=== PATIENT | female | born 1975 | race Caucasian/White ===

== ENCOUNTER → 2020-08-23 | Outpatient (CLI) | payer OTHER ==
[~2020-08-23] MED LIST: ALLER-TEC D 5-1 EACH PO; AUGMENTIN; CYCL10 PO; Calcium Carb 51 EACH PO; FEXPSEER; Flonase 0.05% N16 GM; GAVILAX17 GM PO; GLIP10 PO; HYDACE5; HYDACE5 PO; HYDCHL12.5 PO; IBUP400 PO; LEVSOD50 PO; LOSA50 PO; METO10 PO; MOMENI; Multiple Vitam1 EACH PO; OMEP20ER PO; OXYACE5T PO; OXYACE7.5T PO; PROM25 PO; RANI150 PO; RIZA; SILSUL1TC; SILSUL1TC TOP; VALA500 PO; VENL75ER PO; [UNRECOGNIZED DRUG - REMARK]
== END ==
LOC: LAB EV 18:22 → LAB SHORT 18:22
DX: L05.91 Pilonidal cyst without abscess (principal)
CPT/HCPCS: 87070; 87147; 87205

== ENCOUNTER 2020-09-16 00:29 | Day surgery (SDC) | payer OTHER | END 2020-09-16 22:44 | disposition home or self-care (01) | LOC: WOUND 00:29 | DX: L05.01 Pilonidal cyst with abscess (principal); L73.2 Hidradenitis suppurativa; I10 Essential (primary) hypertension; E11.9 Type 2 diabetes mellitus without complications; E89.0 Postprocedural hypothyroidism; F32.9 Major depressive disorder, single episode, unspecified; F41.9 Anxiety disorder, unspecified; J32.9 Chronic sinusitis, unspecified; E66.9 Obesity, unspecified; D64.9 Anemia, unspecified; J45.909 Unspecified asthma, uncomplicated; G47.30 Sleep apnea, unspecified; Z79.51 Long term (current) use of inhaled steroids; Z79.84 Long term (current) use of oral hypoglycemic drugs; Z79.899 Other long term (current) drug therapy; Z85.850 Personal history of malignant neoplasm of thyroid; Z87.891 Personal history of nicotine dependence | CPT/HCPCS: G0463 ==

== ENCOUNTER 2020-09-25 00:42 | Day surgery (SDC) | payer OTHER | END 2020-09-25 12:00 | disposition home or self-care (01) | LOC: WOUND 00:42 | DX: L05.01 Pilonidal cyst with abscess (principal); L73.2 Hidradenitis suppurativa; E11.9 Type 2 diabetes mellitus without complications; E03.9 Hypothyroidism, unspecified; I10 Essential (primary) hypertension; E66.9 Obesity, unspecified; Z79.899 Other long term (current) drug therapy; Z68.42 Body mass index [BMI] 45.0-49.9, adult; Z79.84 Long term (current) use of oral hypoglycemic drugs | CPT/HCPCS: G0463 ==

== ENCOUNTER 2020-10-03 08:42 | Day surgery (SDC) | payer OTHER | END 2020-10-03 23:37 | disposition home or self-care (01) | LOC: WOUND 08:42 | DX: L05.01 Pilonidal cyst with abscess (principal); L73.2 Hidradenitis suppurativa; E11.622 Type 2 diabetes mellitus with other skin ulcer; L98.411 Non-pressure chronic ulcer of buttock limited to breakdown of skin; E11.52 Type 2 diabetes mellitus with diabetic peripheral angiopathy with gangrene; I96 Gangrene, not elsewhere classified; F32.9 Major depressive disorder, single episode, unspecified; F41.9 Anxiety disorder, unspecified; D64.9 Anemia, unspecified; J45.909 Unspecified asthma, uncomplicated; J32.8 Other chronic sinusitis; G47.30 Sleep apnea, unspecified; E89.0 Postprocedural hypothyroidism; E66.9 Obesity, unspecified; Z68.41 Body mass index [BMI] 40.0-44.9, adult; Z88.8 Allergy status to other drugs, medicaments and biological substances; Z91.09 Other allergy status, other than to drugs and biological substances; Z79.51 Long term (current) use of inhaled steroids; Z79.84 Long term (current) use of oral hypoglycemic drugs; Z79.899 Other long term (current) drug therapy; Z87.891 Personal history of nicotine dependence | CPT/HCPCS: G0463 ==

== ENCOUNTER 2020-10-08 00:45 | Day surgery (SDC) | payer OTHER | END 2020-10-08 23:02 | disposition home or self-care (01) | LOC: WOUND 00:45 | DX: E11.622 Type 2 diabetes mellitus with other skin ulcer (principal); L98.412 Non-pressure chronic ulcer of buttock with fat layer exposed; L05.01 Pilonidal cyst with abscess; L73.2 Hidradenitis suppurativa; E66.9 Obesity, unspecified; E89.0 Postprocedural hypothyroidism; Z68.41 Body mass index [BMI] 40.0-44.9, adult; Z79.899 Other long term (current) drug therapy; Z79.84 Long term (current) use of oral hypoglycemic drugs | CPT/HCPCS: G0463 ==

== ENCOUNTER 2020-10-16 01:08 | Day surgery (SDC) | payer OTHER | END 2020-10-16 22:46 | disposition home or self-care (01) | LOC: WOUND 01:08 | DX: E11.622 Type 2 diabetes mellitus with other skin ulcer (principal); L98.412 Non-pressure chronic ulcer of buttock with fat layer exposed; E11.52 Type 2 diabetes mellitus with diabetic peripheral angiopathy with gangrene; I96 Gangrene, not elsewhere classified; L05.01 Pilonidal cyst with abscess; L73.2 Hidradenitis suppurativa; F32.9 Major depressive disorder, single episode, unspecified; F41.9 Anxiety disorder, unspecified; J32.9 Chronic sinusitis, unspecified; I10 Essential (primary) hypertension; D64.9 Anemia, unspecified; E89.0 Postprocedural hypothyroidism; J45.909 Unspecified asthma, uncomplicated; E66.9 Obesity, unspecified; Z68.41 Body mass index [BMI] 40.0-44.9, adult; Z85.850 Personal history of malignant neoplasm of thyroid; Z88.8 Allergy status to other drugs, medicaments and biological substances; Z91.09 Other allergy status, other than to drugs and biological substances; Z79.51 Long term (current) use of inhaled steroids; Z79.84 Long term (current) use of oral hypoglycemic drugs; Z79.899 Other long term (current) drug therapy | CPT/HCPCS: G0463 ==

== ENCOUNTER 2020-10-28 01:35 | Day surgery (SDC) | payer OTHER | END 2020-10-28 22:53 | disposition home or self-care (01) | LOC: WOUND 01:35 | DX: E11.622 Type 2 diabetes mellitus with other skin ulcer (principal); L98.412 Non-pressure chronic ulcer of buttock with fat layer exposed; L05.01 Pilonidal cyst with abscess; L73.2 Hidradenitis suppurativa; E66.9 Obesity, unspecified; I10 Essential (primary) hypertension; E03.9 Hypothyroidism, unspecified; F32.9 Major depressive disorder, single episode, unspecified; F41.9 Anxiety disorder, unspecified; Z68.41 Body mass index [BMI] 40.0-44.9, adult; Z79.899 Other long term (current) drug therapy; Z79.84 Long term (current) use of oral hypoglycemic drugs | CPT/HCPCS: G0463 ==

== ENCOUNTER 2020-11-11 00:22 | Day surgery (SDC) | payer OTHER | END 2020-11-11 22:54 | disposition home or self-care (01) | LOC: WOUND 00:22 | DX: L05.01 Pilonidal cyst with abscess (principal); E11.622 Type 2 diabetes mellitus with other skin ulcer; L98.412 Non-pressure chronic ulcer of buttock with fat layer exposed; E11.52 Type 2 diabetes mellitus with diabetic peripheral angiopathy with gangrene; I96 Gangrene, not elsewhere classified; L73.2 Hidradenitis suppurativa; E03.9 Hypothyroidism, unspecified; F32.9 Major depressive disorder, single episode, unspecified; F41.9 Anxiety disorder, unspecified; J32.9 Chronic sinusitis, unspecified; I10 Essential (primary) hypertension; D64.9 Anemia, unspecified; J45.909 Unspecified asthma, uncomplicated; G47.30 Sleep apnea, unspecified; E66.9 Obesity, unspecified; Z68.41 Body mass index [BMI] 40.0-44.9, adult; Z79.51 Long term (current) use of inhaled steroids; Z79.84 Long term (current) use of oral hypoglycemic drugs; Z79.899 Other long term (current) drug therapy | CPT/HCPCS: G0463 ==

== ENCOUNTER → 2021-03-07 | Outpatient (CLI) | payer OTHER | END | disposition home or self-care (01) | LOC: LAB SHORT 16:12 | DX: R35.0 Frequency of micturition (principal) | CPT/HCPCS: 87086; 87147 ==

== ENCOUNTER 2021-04-29 11:15 | Emergency (ER) | payer OTHER ==
[~2021-04-29] VITALS: Ht 170.2 cm; Wt 122.5 kg
[2021-04-29 12:03] LABS: BASOPHILS ABSOLUTE AUTO 0.09 K/mm3 (0.00-0.23); BASOPHILS PERCENT AUTO 1 % (0-2); EOSINOPHILS ABSOLUTE AUTO 0.37 K/mm3 (0.00-0.68); EOSINOPHILS PERCENT AUTO 3 % (0-6); Hematocrit 35.7 % (33.0-51.0); IMMATURE GRAN ABSOLUTE AUTO 0.21 K/mm3 (0.00-0.10); IMMATURE GRAN PERCENT AUTO 1 % (0-1); LYMPHOCYTES ABSOLUTE AUTO 2.35 K/mm3 (0.84-5.20); LYMPHOCYTES PERCENT AUTO 16 % (21-46); MONOCYTES ABSOLUTE AUTO 0.92 K/mm3 (0.16-1.47); MONOCYTES PERCENT AUTO 6 % (4-13); Mean Corpuscular HGB Conc 30.8 g/dL (31.5-36.5); Mean Corpuscular Volume 75 fL (80-100); Mean Platelet Volume 8.6 fL (9.1-12.4); NEUTROPHILS ABSOLUTE AUTO 10.89 K/mm3 (1.96-9.15); NEUTROPHILS PERCENT AUTO 74 % (41-73); Platelet Count 504 K/mm3 (150-400); RDW Coefficient Variation 17.2 % (11.7-14.2); RDW Standard Deviation 45.3 fL (35.1-46.3); Red Blood Cell Count 4.78 M/mm3 (3.80-5.20); White Blood Cell Count 14.83 K/mm3 (4.00-11.30)
[2021-04-29 12:17] LABS: Alanine Aminotransfer (ALT/SGP 25 U/L (12-78); Albumin/Globulin Ratio 0.5 (0.8-1.8); Alk Phos 99 U/L (50-136); Anion Gap 7 mmol/L (6-16); Aspartate Aminotrans (AST/SGOT 12 U/L (12-37); Bilirubin, Total 0.3 mg/dL (0.1-1.0); Blood Urea Nitrogen 17 mg/dL (8-24); Bun/Creatinine Ratio 18.5 (12.0-20.0); CO2, Blood 25 mmol/L (21-32); Calcium, Blood 8.7 mg/dL (8.5-10.1); Chloride, Blood 102 mmol/L (98-108); Creatinine, Blood 0.92 mg/dL (0.40-1.00); Globulin, Blood 5.6 g/dL (2.2-4.0); Glomerular Filtration Rate >60 (60-); Glucose, Blood 240 mg/dL (70-99); Potassium, Blood 3.8 mmol/L (3.5-5.5); Sodium, Blood 134 mmol/L (136-145); Total Protein, Blood 8.6 g/dL (6.4-8.2)
[2021-04-29 16:22] LABS: Source, Urine Clean Catch
[2021-04-29 16:40] LABS: Appearance, Urine Hazy (Clear); Bilirubin, Urine Neg (Neg); Blood, Urine 4+ (Neg); Color, Urine Yellow (P-Yellow); Glucose Qualitative, Urine Neg (Neg); Ketones, Urine Neg (Neg); Leukocyte Esterase, Urine 3+ (Neg); Nitrite, Urine Neg (Neg); Protein, Urine 1+ (Neg); Urobilinogen, Urine NORM (Normal)
[2021-04-29 17:19] LABS: Bacteria Many /hpf; White Blood Cells, Urine 50-100 /hpf (0-5)
[2021-04-29 17:20] LABS: Squamous Epithelial Cells Many /hpf (Few)
== END 2021-04-29 16:37 | disposition left against medical advice (07) ==
LOC: ER 11:15
PROVIDERS: Physician Assistant
DX: L05.91 Pilonidal cyst without abscess (principal); N39.0 Urinary tract infection, site not specified; Z53.21 Procedure and treatment not carried out due to patient leaving prior to being seen by health care provider; Z91.09 Other allergy status, other than to drugs and biological substances; Z88.8 Allergy status to other drugs, medicaments and biological substances; Z79.899 Other long term (current) drug therapy
CPT/HCPCS: 36415; 80053; 81001; 85025; 87086; 99282

== ENCOUNTER 2021-05-13 00:49 | Day surgery (SDC) | payer OTHER | END 2021-05-13 22:58 | disposition home or self-care (01) | LOC: WOUND 00:49 | DX: L98.412 Non-pressure chronic ulcer of buttock with fat layer exposed (principal); L05.01 Pilonidal cyst with abscess; L73.2 Hidradenitis suppurativa; E11.9 Type 2 diabetes mellitus without complications; E03.9 Hypothyroidism, unspecified; I10 Essential (primary) hypertension | CPT/HCPCS: A9270; G0463 ==

== ENCOUNTER 2021-05-20 05:02 | Day surgery (SDC) | payer OTHER | END 2021-05-20 23:14 | disposition home or self-care (01) | LOC: WOUND 05:02 | DX: L98.412 Non-pressure chronic ulcer of buttock with fat layer exposed (principal); L73.2 Hidradenitis suppurativa; E03.9 Hypothyroidism, unspecified; E66.9 Obesity, unspecified; I10 Essential (primary) hypertension | CPT/HCPCS: A9270; G0463 ==

== ENCOUNTER → 2021-06-11 | Outpatient (CLI) | payer OTHER | LOC: LAB 13:15 → LAB SHORT 13:15 | DX: L08.0 Pyoderma (principal) | CPT/HCPCS: 87070; 87205 ==

== ENCOUNTER 2021-07-16 12:01 | Inpatient (IN) | payer OTHER ==
[~2021-07-16] VITALS: Ht 170.2 cm; Wt 120.2 kg
[~2021-07-16 12:01] MED LIST changes: +Hair, Skin & N1 EACH PO; -Multiple Vitam1 EACH PO
[2021-07-16 12:56] LABS: BASOPHILS ABSOLUTE AUTO 0.06 K/mm3 (0.00-0.23); BASOPHILS PERCENT AUTO 0 % (0-2); EOSINOPHILS ABSOLUTE AUTO 0.23 K/mm3 (0.00-0.68); EOSINOPHILS PERCENT AUTO 2 % (0-6); Hematocrit 24.7 % (33.0-51.0); Hemoglobin 7.7 g/dL (11.5-16.0); IMMATURE GRAN ABSOLUTE AUTO 0.37 K/mm3 (0.00-0.10); IMMATURE GRAN PERCENT AUTO 2 % (0-1); LYMPHOCYTES ABSOLUTE AUTO 1.59 K/mm3 (0.84-5.20); LYMPHOCYTES PERCENT AUTO 10 % (21-46); MONOCYTES ABSOLUTE AUTO 1.32 K/mm3 (0.16-1.47); MONOCYTES PERCENT AUTO 9 % (4-13); Mean Corpuscular HGB 22.4 pg (26.0-34.0); Mean Corpuscular HGB Conc 31.2 g/dL (31.5-36.5); Mean Corpuscular Volume 72 fL (80-100); Mean Platelet Volume 8.6 fL (9.1-12.4); NEUTROPHILS ABSOLUTE AUTO 11.76 K/mm3 (1.96-9.15); NEUTROPHILS PERCENT AUTO 77 % (41-73); Platelet Count 516 K/mm3 (150-400); RDW Coefficient Variation 16.2 % (11.7-14.2); RDW Standard Deviation 41.5 fL (35.1-46.3); Red Blood Cell Count 3.44 M/mm3 (3.80-5.20); White Blood Cell Count 15.33 K/mm3 (4.00-11.30)
[2021-07-16 13:20] LABS: Albumin, Blood 2.1 g/dL (3.4-5.0); Albumin/Globulin Ratio 0.4 (0.8-1.8); Bilirubin, Total 0.5 mg/dL (0.1-1.0); Bun/Creatinine Ratio 12.7 (12.0-20.0); Calcium, Blood 8.8 mg/dL (8.5-10.1); Creatinine, Blood 1.42 mg/dL (0.40-1.00); Globulin, Blood 5.4 g/dL (2.2-4.0); Potassium, Blood 4.2 mmol/L (3.5-5.5); Total Protein, Blood 7.5 g/dL (6.4-8.2)
[2021-07-16] MEDS ORDERED: GLYBURIDE5 M2 PO (15:12)
[2021-07-16] MEDS ORDERED: SITA100T2 PO (15:12)
[2021-07-16] MEDS ORDERED: MONT10T PO (15:12)
[2021-07-16] MEDS ORDERED: Synthroid/Levo0.2 MG PO (15:13)
[2021-07-16] MEDS ORDERED: BUPR150ER PO (15:13)
[2021-07-16] MEDS ORDERED: LOSARTAN-HCTZ1 EAC6 PO (15:14)
[2021-07-16] MEDS ORDERED: EFFEXOR XR150 MG PO (15:14)
[2021-07-16] MEDS ORDERED: CONSTULOSE10 GM/155 PO (15:14)
[2021-07-16] MEDS ORDERED: HUMIRA(CF)40 MG/0.4 SC (15:16)
--- NOTE | 2021-07-16 19:14 | NUR ---
PT ADMITTED TO ROOM 215 ABOUT 1745. PT IS A/O X4. PAIN 10/10; MEDICATED WITH DILAUDED. PHOTOS TAKEN OF SKIN BREAKDOWN AND PLACED IN CHART. CBG WAS 59; PT GIVEN APPLE JUICE. LINENS CHANGED. PT ORIENTED TO ROOM AND CALL LIGHT.
[2021-07-17 04:47] LABS: BASOPHILS ABSOLUTE AUTO 0.04 K/mm3 (0.00-0.23); BASOPHILS PERCENT AUTO 0 % (0-2); EOSINOPHILS ABSOLUTE AUTO 0.43 K/mm3 (0.00-0.68); EOSINOPHILS PERCENT AUTO 4 % (0-6); Hematocrit 23.7 % (33.0-51.0); IMMATURE GRAN ABSOLUTE AUTO 0.32 K/mm3 (0.00-0.10); IMMATURE GRAN PERCENT AUTO 3 % (0-1); LYMPHOCYTES ABSOLUTE AUTO 2.06 K/mm3 (0.84-5.20); LYMPHOCYTES PERCENT AUTO 17 % (21-46); MONOCYTES ABSOLUTE AUTO 1.36 K/mm3 (0.16-1.47); MONOCYTES PERCENT AUTO 11 % (4-13); Mean Corpuscular HGB 22.4 pg (26.0-34.0); Mean Corpuscular HGB Conc 29.5 g/dL (31.5-36.5); Mean Corpuscular Volume 76 fL (80-100); Mean Platelet Volume 8.4 fL (9.1-12.4); NEUTROPHILS ABSOLUTE AUTO 8.14 K/mm3 (1.96-9.15); NEUTROPHILS PERCENT AUTO 66 % (41-73); Platelet Count 500 K/mm3 (150-400); RDW Coefficient Variation 16.2 % (11.7-14.2); RDW Standard Deviation 45.1 fL (35.1-46.3); Red Blood Cell Count 3.13 M/mm3 (3.80-5.20); White Blood Cell Count 12.35 K/mm3 (4.00-11.30)
[2021-07-17 05:12] LABS: Albumin, Blood 1.9 g/dL (3.4-5.0); Albumin/Globulin Ratio 0.4 (0.8-1.8); Bilirubin, Total 0.3 mg/dL (0.1-1.0); Bun/Creatinine Ratio 10.9 (12.0-20.0); Calcium, Blood 8.2 mg/dL (8.5-10.1); Creatinine, Blood 1.28 mg/dL (0.40-1.00); Magnesium, Blood 1.5 mg/dL (1.6-2.4); Potassium, Blood 3.5 mmol/L (3.5-5.5); Total Protein, Blood 6.9 g/dL (6.4-8.2)
--- NOTE | 2021-07-17 07:51 | NUR ---
SHIFT SUMMARY: DELROY IS A&OX4. VSS, NO ACUTE EVENTS OVERNIGHT. SHE DOES STATE THAT THE BLOOD PRESSURES ARE LOWER THAN HER NORM, BUT DENIES ANY DIZZINESS OR LIGHTHEADEDNESS. SHE IS TOLERATING PO INTAKE WELL, IV TO LEFT HAND PATENT. SHE REPORTS ADEQUATE PAIN CONTROL WITH THE 5 MG OXYCODONE AND 1 MG OF DILAUDID. SHE IS A ONE PERSON STANDBY ASSIST TO THE BATHROOM. SHE REPORTS AMBULATING AND URINATING TO BE EXTREMELY PAINFUL. SHE DID STATE THAT THE OIL EMULSION DRESSINGS WERE HELPFUL AND DID NOT CAUSE AN INCREASE TO HER SYMPTOMS. SHE IS LYING IN BED WITH THE CALL LIGHT IN REACH. REPORT GIVEN TO DAY SHIFT RN.
--- NOTE | 2021-07-17 12:44 | NUR ---
DR RAMÍREZ IN TO SEE PT, TOOK BIOPSIES.
[2021-07-17 13:03] LABS: BASOPHILS ABSOLUTE AUTO 0.09 K/mm3 (0.00-0.23); BASOPHILS PERCENT AUTO 1 % (0-2); EOSINOPHILS PERCENT AUTO 3 % (0-6); Hematocrit 27.2 % (33.0-51.0); IMMATURE GRAN ABSOLUTE AUTO 0.45 K/mm3 (0.00-0.10); IMMATURE GRAN PERCENT AUTO 3 % (0-1); LYMPHOCYTES ABSOLUTE AUTO 2.09 K/mm3 (0.84-5.20); LYMPHOCYTES PERCENT AUTO 14 % (21-46); MONOCYTES ABSOLUTE AUTO 1.49 K/mm3 (0.16-1.47); MONOCYTES PERCENT AUTO 10 % (4-13); Mean Corpuscular HGB 22.5 pg (26.0-34.0); Mean Corpuscular HGB Conc 29.4 g/dL (31.5-36.5); Mean Corpuscular Volume 76 fL (80-100); Mean Platelet Volume 8.2 fL (9.1-12.4); NEUTROPHILS ABSOLUTE AUTO 10.33 K/mm3 (1.96-9.15); NEUTROPHILS PERCENT AUTO 69 % (41-73); Platelet Count 595 K/mm3 (150-400); RDW Coefficient Variation 16.2 % (11.7-14.2); Red Blood Cell Count 3.56 M/mm3 (3.80-5.20); White Blood Cell Count 14.95 K/mm3 (4.00-11.30)
[2021-07-17 15:30] LABS: Vancomycin, Trough 20.6 ug/mL (5.0-10.0)
--- NOTE | 2021-07-17 16:25 | NUR ---
SHIFT SUMMARY PT HAS BEEN A/O X4. SBA UP TO BATHROOM. PT HAS BEEN VERY PAINFUL WITH MOVEMENT R/T SKIN DISCOMFORT. SHE STATES IT FEELS LIKE HER SKIN IS RIPPING WHEN SHE MOVES. PT HAS BEEN MEDICATED PRN PER ORDERS. DR RAMÍREZ WAS IN TO SEE PT TODAY AND DID BIOPSIES FOR CULTURES. BLOOD CULTURES CAME BACK POSITIVE TODAY - NOTIFIED PROVIDER - PT ON VANCO WHICH COVERS THIS PER PHYSICIAN. PT HAS BEEN TOLERATING PO INTAKE AND VOIDING.
--- NOTE | 2021-07-18 04:00 | NUR ---
SHIFT SUMMARY NO ACUTE CHANGES THIS SHIFT. PT REPORTS SHE IS ABLE TO TOLERATE MORE MOBILITY WITH HER LEGS THIS SHIFT. 1 PAIN PILL AND X1 DOSE IV BREAKTHROUGH PAIN MEDS PER ORDERS. CREAM APPLIED TO RASH AREAS PER ORDERS. IVF INFUSING. 1 ASSIST TO BRP. PT USES CALL LIGHT APPROPRIATELY.
[2021-07-18 05:04] LABS: BASOPHILS ABSOLUTE AUTO 0.02 K/mm3 (0.00-0.23); BASOPHILS PERCENT AUTO 0 % (0-2); EOSINOPHILS ABSOLUTE AUTO 0.03 K/mm3 (0.00-0.68); EOSINOPHILS PERCENT AUTO 0 % (0-6); Hematocrit 23.1 % (33.0-51.0); Hemoglobin 6.7 g/dL (11.5-16.0); IMMATURE GRAN ABSOLUTE AUTO 0.24 K/mm3 (0.00-0.10); IMMATURE GRAN PERCENT AUTO 3 % (0-1); LYMPHOCYTES PERCENT AUTO 14 % (21-46); MONOCYTES ABSOLUTE AUTO 0.86 K/mm3 (0.16-1.47); MONOCYTES PERCENT AUTO 9 % (4-13); Mean Corpuscular Volume 76 fL (80-100); Mean Platelet Volume 8.4 fL (9.1-12.4); NEUTROPHILS ABSOLUTE AUTO 6.85 K/mm3 (1.96-9.15); NEUTROPHILS PERCENT AUTO 74 % (41-73); Platelet Count 443 K/mm3 (150-400); RDW Standard Deviation 44.1 fL (35.1-46.3); Red Blood Cell Count 3.05 M/mm3 (3.80-5.20)
[2021-07-18 05:42] LABS: Albumin, Blood 1.7 g/dL (3.4-5.0); Albumin/Globulin Ratio 0.4 (0.8-1.8); Bilirubin, Total 0.2 mg/dL (0.1-1.0); Bun/Creatinine Ratio 13.6 (12.0-20.0); C-REACTIVE PROTEIN, EXT RANGE 16.8 mg/dL (0.000-0.300); Calcium, Blood 7.6 mg/dL (8.5-10.1); Creatinine, Blood 1.03 mg/dL (0.40-1.00); Globulin, Blood 4.7 g/dL (2.2-4.0); Percent Saturation 16.4 % (15.0-50.0); Potassium, Blood 3.9 mmol/L (3.5-5.5); Total Protein, Blood 6.4 g/dL (6.4-8.2)
--- NOTE | 2021-07-18 16:39 | NUR ---
SHIFT SUMMARY PT A&OX4, VSS/RA, ANXIOUS AT TIMES. CHRONIC RASH, OIL EMULSION DRESSINGS CHANGED, TRIAMCINOLONE CREAM APPLIED TO THIGHS ONLY. 1 UNIT PRBCS INFUSED TODAY. IVF @ 150 AND ABX/ANTIFUNGAL SCHEDULED. PAIN MANAGED WITH 5 MG OXY AND 1 MG DILAUDID PRN. MARY PO ADA DIET. CBGS CNI. VOIDING. AMBULATING SBA TO BRP, UP IN ROOM. WILL REPORT TO ONCOMING NOC DARNELL.
--- NOTE | 2021-07-19 04:50 | NUR ---
SHIFT SUMMARY NO ACUTE CHANGES THIS SHIFT. PT LESS PAINFUL THAN PREVIOUS SHIFT. 1 MG IV DILAUDID + 1 ROXICODONE FOR PAIN MANAGEMENT. OIL EMULSION DRESSINGS IN PLACE TO RASH AREAS. IVF INFUSING PER ORDERS. 1 SBA TO BRP. PT APPEARS TO BE LESS ANXIOUS THIS SHIFT AND MORE EMOTIONALLY STABLE R/T TREATMENT PLAN AND DIAGNOSIS. USES CALL LIGHT APPROPRIATELY.
[2021-07-19 08:12] LABS: COMPLEMENT C3, SERUM 165 mg/dL (82-167); COMPLEMENT C4, SERUM 31 mg/dL (12-38)
[2021-07-19 09:37] LABS: Vancomycin, Trough 12.2 ug/mL (5.0-10.0)
[2021-07-19 13:35] LABS: BASOPHILS ABSOLUTE AUTO 0.04 K/mm3 (0.00-0.23); BASOPHILS PERCENT AUTO 1 % (0-2); EOSINOPHILS PERCENT AUTO 4 % (0-6); Hematocrit 23.2 % (33.0-51.0); Hemoglobin 6.9 g/dL (11.5-16.0); IMMATURE GRAN ABSOLUTE AUTO 0.31 K/mm3 (0.00-0.10); IMMATURE GRAN PERCENT AUTO 4 % (0-1); LYMPHOCYTES ABSOLUTE AUTO 1.62 K/mm3 (0.84-5.20); LYMPHOCYTES PERCENT AUTO 19 % (21-46); MONOCYTES ABSOLUTE AUTO 0.83 K/mm3 (0.16-1.47); MONOCYTES PERCENT AUTO 10 % (4-13); Mean Corpuscular HGB 22.8 pg (26.0-34.0); Mean Corpuscular HGB Conc 29.7 g/dL (31.5-36.5); Mean Corpuscular Volume 77 fL (80-100); Mean Platelet Volume 8.2 fL (9.1-12.4); NEUTROPHILS ABSOLUTE AUTO 5.31 K/mm3 (1.96-9.15); NEUTROPHILS PERCENT AUTO 63 % (41-73); Platelet Count 403 K/mm3 (150-400); RDW Coefficient Variation 16.6 % (11.7-14.2); RDW Standard Deviation 45.9 fL (35.1-46.3); Red Blood Cell Count 3.03 M/mm3 (3.80-5.20); White Blood Cell Count 8.41 K/mm3 (4.00-11.30)
[2021-07-19 17:08] LABS: ANA DIRECT Negative (Negative); ANTI-DNA (DS) AB QN <1 IU/mL (0-9); RNP ANTIBODIES <0.2 AI (0.0-0.9); SJOGREN'S ANTI-SS-A <0.2 AI (0.0-0.9); SJOGREN'S ANTI-SS-B <0.2 AI (0.0-0.9); SMITH ANTIBODIES <0.2 AI (0.0-0.9)
--- NOTE | 2021-07-19 17:17 | NUR ---
SUMMARY PT PAINFUL W/MOVEMENT. MEDICATED PER ORDERS T/O SHIFT FOR PAIN. CHANGED CHUX PRN FOR BLEEDING TO BUTTOCKS. CHANGED VASELINE GAUZE DRESSINGS TO GROIN AREA/PANNUS AND UNDER BREASTS. PT REC'G 1 UNIT PRBCS AT THIS TIME. VSS. CALL LIGHT IN REACH.
[2021-07-19 19:08] LABS: ANTI-DSDNA ANTIBODIES <1 IU/mL (0-9); RNP ANTIBODIES <0.2 AI (0.0-0.9); SJOGREN'S ANTI-SS-A <0.2 AI (0.0-0.9); SJOGREN'S ANTI-SS-B <0.2 AI (0.0-0.9); SMITH ANTIBODIES <0.2 AI (0.0-0.9)
[2021-07-20 04:51] LABS: BASOPHILS ABSOLUTE AUTO 0.04 K/mm3 (0.00-0.23); BASOPHILS PERCENT AUTO 0 % (0-2); EOSINOPHILS ABSOLUTE AUTO 0.35 K/mm3 (0.00-0.68); EOSINOPHILS PERCENT AUTO 4 % (0-6); Hematocrit 24.7 % (33.0-51.0); Hemoglobin 7.7 g/dL (11.5-16.0); IMMATURE GRAN ABSOLUTE AUTO 0.34 K/mm3 (0.00-0.10); IMMATURE GRAN PERCENT AUTO 4 % (0-1); LYMPHOCYTES ABSOLUTE AUTO 1.84 K/mm3 (0.84-5.20); LYMPHOCYTES PERCENT AUTO 19 % (21-46); MONOCYTES ABSOLUTE AUTO 0.95 K/mm3 (0.16-1.47); MONOCYTES PERCENT AUTO 10 % (4-13); Mean Corpuscular HGB 23.7 pg (26.0-34.0); Mean Corpuscular HGB Conc 31.2 g/dL (31.5-36.5); Mean Corpuscular Volume 76 fL (80-100); Mean Platelet Volume 8.2 fL (9.1-12.4); NEUTROPHILS ABSOLUTE AUTO 6.01 K/mm3 (1.96-9.15); NEUTROPHILS PERCENT AUTO 63 % (41-73); NRBC ABSOLUTE 0.02 K/mm3 (0.00-0.02); NRBC Auto 0.2 /100 WBC (0.0-0.2); Platelet Count 418 K/mm3 (150-400); RDW Coefficient Variation 16.8 % (11.7-14.2); Red Blood Cell Count 3.25 M/mm3 (3.80-5.20); White Blood Cell Count 9.53 K/mm3 (4.00-11.30)
[2021-07-20 05:11] LABS: Alanine Aminotransfer (ALT/SGP 30 U/L (12-78); Albumin, Blood 1.7 g/dL (3.4-5.0); Albumin/Globulin Ratio 0.4 (0.8-1.8); Alk Phos 79 U/L (50-136); Anion Gap 7 mmol/L (6-16); Aspartate Aminotrans (AST/SGOT 18 U/L (12-37); Bilirubin, Total 0.3 mg/dL (0.1-1.0); Blood Urea Nitrogen 12 mg/dL (8-24); CO2, Blood 24 mmol/L (21-32); Calcium, Blood 7.7 mg/dL (8.5-10.1); Chloride, Blood 110 mmol/L (98-108); Globulin, Blood 4.2 g/dL (2.2-4.0); Glomerular Filtration Rate >60 (60-); Glucose, Blood 80 mg/dL (70-99); Magnesium, Blood 1.7 mg/dL (1.6-2.4); Potassium, Blood 3.7 mmol/L (3.5-5.5); Sodium, Blood 141 mmol/L (136-145); Total Protein, Blood 5.9 g/dL (6.4-8.2)
--- NOTE | 2021-07-20 07:46 | NUR ---
SUMMARY PT WITH NO CHANGES TONIGHT.WAITING SCOPE TOMORROW,AND WAITING BX RESULTS.
--- NOTE | 2021-07-20 18:44 | NUR ---
SUMMARY NO ACUTE CHANGES T/O SHIFT. PT SLEPT OFF AND ON T/O AFTERNOON. PAINFUL WHEN GETTING OOB, AMBULATING. CLEAR LIQUIDS THIS SHIFT PER ORDERS IN ORDER TO PREP FOR SCOPE PLANNED FOR TOMORROW. BOWEL PREP STARTING THIS EVENING. CALL LIGHT IN REACH.
[2021-07-20 20:24] LABS: Vancomycin, Trough 17.7 ug/mL (5.0-10.0)
[2021-07-21 04:15] LABS: BASOPHILS ABSOLUTE AUTO 0.03 K/mm3 (0.00-0.23); BASOPHILS PERCENT AUTO 0 % (0-2); EOSINOPHILS ABSOLUTE AUTO 0.25 K/mm3 (0.00-0.68); EOSINOPHILS PERCENT AUTO 3 % (0-6); Hematocrit 27.3 % (33.0-51.0); Hemoglobin 8.3 g/dL (11.5-16.0); IMMATURE GRAN ABSOLUTE AUTO 0.33 K/mm3 (0.00-0.10); IMMATURE GRAN PERCENT AUTO 3 % (0-1); LYMPHOCYTES PERCENT AUTO 17 % (21-46); MONOCYTES ABSOLUTE AUTO 0.97 K/mm3 (0.16-1.47); MONOCYTES PERCENT AUTO 10 % (4-13); Mean Corpuscular HGB 23.3 pg (26.0-34.0); Mean Corpuscular HGB Conc 30.4 g/dL (31.5-36.5); Mean Corpuscular Volume 77 fL (80-100); Mean Platelet Volume 8.1 fL (9.1-12.4); NEUTROPHILS ABSOLUTE AUTO 6.53 K/mm3 (1.96-9.15); NEUTROPHILS PERCENT AUTO 67 % (41-73); Platelet Count 436 K/mm3 (150-400); RDW Coefficient Variation 17.2 % (11.7-14.2); RDW Standard Deviation 47.7 fL (35.1-46.3); Red Blood Cell Count 3.56 M/mm3 (3.80-5.20); White Blood Cell Count 9.81 K/mm3 (4.00-11.30)
[2021-07-21 04:49] LABS: Anion Gap 9 mmol/L (6-16); Blood Urea Nitrogen 7 mg/dL (8-24); Bun/Creatinine Ratio 7.8 (12.0-20.0); CO2, Blood 24 mmol/L (21-32); Calcium, Blood 8.1 mg/dL (8.5-10.1); Chloride, Blood 110 mmol/L (98-108); Glomerular Filtration Rate >60 (60-); Glucose, Blood 72 mg/dL (70-99); Potassium, Blood 3.3 mmol/L (3.5-5.5); Sodium, Blood 143 mmol/L (136-145)
--- NOTE | 2021-07-21 07:24 | NUR ---
SUMMARY PT FINALLY WAS ABLE TO GET 4000 ML GOLYTLY DOWN BY 0630. PT TEARFUL REPORTING SHE HATES THE TASTE,FEELING FULL,HOWEVER,STOOLS ARE FINALLY BECOMING LIQUID.DR [place] HERE TO SEE PT AND IS AWARE.
[2021-07-21 10:25] LABS: SARS-Cov-2 (COVID-19) PCR, MMC NEGATIVE (NEGATIVE)
--- NOTE | 2021-07-21 10:39 | NUR ---
07/21/21 1039 Prisca Garcia History, Chart, Medications and Allergies reviewed before start of procedure. Patient confirms NPO status and agrees with scheduled surgery.
--- NOTE | 2021-07-21 10:49 | NUR ---
DR RAMÍREZ IN TO SEE PT THIS MORNING AROUND 0730. PT HAS BEEN HAVING LOOSE/WATERY STOOL SINCE FINISHING BOWEL PREP LAST NIGHT. HAS BEEN NPO SINCE AROUND 0600. PT TO COLONOSCOPY AROUND 1000.
--- NOTE | 2021-07-21 12:01 | NUR ---
PT BACK FROM SCOPE. AWAKE, ALERT, ORIENTED. TRANSFERRED TO BED WITH SBA. DRESSING PLACED ON BOTTOM.
--- NOTE | 2021-07-21 18:06 | NUR ---
SHIFT SUMMARY PT HAS BEEN A/O X4 TODAY. TOLERATING PO INTAKE AND VOIDING. PAIN MANAGED WITH PO AND IV PAIN MEDICATION PRN. OIL EMULSION DRESSINGS APPLIED TO OPEN WOUNDS TO PREVENT STICKING TO BEDDING. PT HAD SCOPE TODAY; SEE OP NOTE. PT AMBULATING WITH 1X ASSIST TO BATHROOM. NO ACUTE CHANGES TODAY.
--- NOTE | 2021-07-22 03:59 | NUR ---
SHIFT SUMMARY NO ACUTE CHANGES THIS SHIFT. OIL EMULSION DRESSINGS REMAIN IN PLACE TO RASHES. 1 ROXICODONE + 1MG IV DILAUDID FOR PAIN MANAGMENT. IVF + ABX PER ORDERS. 1 SBA TO BRP. PT USES CALL LIGHT APPROPRIATELY.
[2021-07-22 08:07] LABS: BASOPHILS ABSOLUTE AUTO 0.03 K/mm3 (0.00-0.23); BASOPHILS PERCENT AUTO 0 % (0-2); EOSINOPHILS ABSOLUTE AUTO 0.28 K/mm3 (0.00-0.68); EOSINOPHILS PERCENT AUTO 3 % (0-6); Hematocrit 25.4 % (33.0-51.0); Hemoglobin 7.7 g/dL (11.5-16.0); IMMATURE GRAN ABSOLUTE AUTO 0.14 K/mm3 (0.00-0.10); IMMATURE GRAN PERCENT AUTO 2 % (0-1); LYMPHOCYTES ABSOLUTE AUTO 1.47 K/mm3 (0.84-5.20); LYMPHOCYTES PERCENT AUTO 17 % (21-46); MONOCYTES ABSOLUTE AUTO 0.87 K/mm3 (0.16-1.47); MONOCYTES PERCENT AUTO 10 % (4-13); Mean Corpuscular HGB 23.5 pg (26.0-34.0); Mean Corpuscular HGB Conc 30.3 g/dL (31.5-36.5); Mean Corpuscular Volume 78 fL (80-100); Mean Platelet Volume 8.2 fL (9.1-12.4); NEUTROPHILS ABSOLUTE AUTO 5.89 K/mm3 (1.96-9.15); NEUTROPHILS PERCENT AUTO 68 % (41-73); Platelet Count 361 K/mm3 (150-400); RDW Coefficient Variation 17.6 % (11.7-14.2); RDW Standard Deviation 49.3 fL (35.1-46.3); Red Blood Cell Count 3.27 M/mm3 (3.80-5.20); White Blood Cell Count 8.68 K/mm3 (4.00-11.30)
[2021-07-22 08:23] LABS: Alanine Aminotransfer (ALT/SGP 28 U/L (12-78); Albumin, Blood 1.6 g/dL (3.4-5.0); Albumin/Globulin Ratio 0.4 (0.8-1.8); Alk Phos 73 U/L (50-136); Anion Gap 7 mmol/L (6-16); Aspartate Aminotrans (AST/SGOT 16 U/L (12-37); Bilirubin, Total 0.2 mg/dL (0.1-1.0); Blood Urea Nitrogen 5 mg/dL (8-24); Bun/Creatinine Ratio 5.4 (12.0-20.0); CO2, Blood 25 mmol/L (21-32); Calcium, Blood 7.6 mg/dL (8.5-10.1); Chloride, Blood 110 mmol/L (98-108); Creatinine, Blood 0.93 mg/dL (0.40-1.00); Globulin, Blood 4.4 g/dL (2.2-4.0); Glomerular Filtration Rate >60 (60-); Glucose, Blood 97 mg/dL (70-99); Potassium, Blood 3.4 mmol/L (3.5-5.5); Sodium, Blood 142 mmol/L (136-145); Vancomycin, Trough 15.9 ug/mL (5.0-10.0)
--- NOTE | 2021-07-22 17:12 | NUR ---
SHIFT SUMMARY PT HAS BEEN A/O X4 TODAY. SBA TO BATHROOM FOR CORDS/LINES. PT CONTINUES TO HAVE SIGNIFICANT PAIN ON COCCYX, JAXON AREA, ABD AND UNDER BREASTS WHERE SKIN IS IRRITATED. MEDICATING WITH OXY, TYLENOL, AND DILAUDED. USING OIL EMOLSION DRESSINGS TO PREVENT STICKING TO BEDDING. PT WAS SEEN TODAY BY DR RAMÍREZ AND DR DEL VALLE. EYE DROPS STARTED TODAY FOR REDNESS AND ITCHING IN EYES. PT RESTING IN BED AT THIS TIME.
[2021-07-23 04:31] LABS: BASOPHILS ABSOLUTE AUTO 0.03 K/mm3 (0.00-0.23); BASOPHILS PERCENT AUTO 0 % (0-2); EOSINOPHILS ABSOLUTE AUTO 0.35 K/mm3 (0.00-0.68); EOSINOPHILS PERCENT AUTO 4 % (0-6); Hematocrit 28.7 % (33.0-51.0); Hemoglobin 8.7 g/dL (11.5-16.0); IMMATURE GRAN ABSOLUTE AUTO 0.13 K/mm3 (0.00-0.10); IMMATURE GRAN PERCENT AUTO 2 % (0-1); LYMPHOCYTES ABSOLUTE AUTO 1.29 K/mm3 (0.84-5.20); LYMPHOCYTES PERCENT AUTO 16 % (21-46); MONOCYTES ABSOLUTE AUTO 0.83 K/mm3 (0.16-1.47); MONOCYTES PERCENT AUTO 10 % (4-13); Mean Corpuscular HGB 23.6 pg (26.0-34.0); Mean Corpuscular HGB Conc 30.3 g/dL (31.5-36.5); Mean Corpuscular Volume 78 fL (80-100); Mean Platelet Volume 8.5 fL (9.1-12.4); NEUTROPHILS ABSOLUTE AUTO 5.51 K/mm3 (1.96-9.15); NEUTROPHILS PERCENT AUTO 68 % (41-73); Platelet Count 424 K/mm3 (150-400); RDW Coefficient Variation 17.4 % (11.7-14.2); RDW Standard Deviation 48.7 fL (35.1-46.3); Red Blood Cell Count 3.69 M/mm3 (3.80-5.20); White Blood Cell Count 8.14 K/mm3 (4.00-11.30)
[2021-07-23 04:52] LABS: Alanine Aminotransfer (ALT/SGP 24 U/L (12-78); Albumin, Blood 1.8 g/dL (3.4-5.0); Albumin/Globulin Ratio 0.4 (0.8-1.8); Alk Phos 78 U/L (50-136); Anion Gap 6 mmol/L (6-16); Aspartate Aminotrans (AST/SGOT 12 U/L (12-37); Bilirubin, Total 0.2 mg/dL (0.1-1.0); Blood Urea Nitrogen 4 mg/dL (8-24); Bun/Creatinine Ratio 4.3 (12.0-20.0); CO2, Blood 27 mmol/L (21-32); Calcium, Blood 8.2 mg/dL (8.5-10.1); Chloride, Blood 107 mmol/L (98-108); Creatinine, Blood 0.94 mg/dL (0.40-1.00); Globulin, Blood 4.7 g/dL (2.2-4.0); Glomerular Filtration Rate >60 (60-); Glucose, Blood 125 mg/dL (70-99); Potassium, Blood 3.2 mmol/L (3.5-5.5); Sodium, Blood 140 mmol/L (136-145); Total Protein, Blood 6.5 g/dL (6.4-8.2)
--- NOTE | 2021-07-23 06:12 | NUR ---
SHIFT SUMMARY: DELROY IS A&OX4. VSS, NO ACUTE EVENTS OVERNIGHT. SHE REPORTS ADEQUATE PAIN CONTROL WITH THE APAP, DILAUDID, AND OXYCODONE. IV TO R ARM PATENT, MARY PO INTAKE WITH OCCASIONAL NAUSEA, REPORTS RELIEF WITH ZOFRAN. OIL EMULSION DRESSINGS TO WOUNDS. SHE STATES THAT SHE FEELS THE RASH ON THE RIGHT SIDE OF HER BODY IS IMPROVING, BUT DOES NOT FEEL THAT THE LEFT SIDE IS IMPROVING AT ALL. SHE IS A ONE PERSON ASSIST TO THE BATHROOM. SHE IS LYING IN BED WITH THE CALL LIGHT IN REACH. WILL REPORT TO DAY SHIFT RN.
--- NOTE | 2021-07-23 18:06 | NUR ---
SHIFT SUMMARY PATIENT ORIENTED WHEN AWAKE. SOMEWHAT ANXIOUS IN MORNING, GAVE ATIVAN AND RESTED AND NAPPED THROUGH AFTERNOON. SEEN BY DERM DR RAMÍREZ WHO STATED WOUNDS TO BUTTOCKS LOOKED MUCH IMPROVED SINCE WEDNESDAY. OIL EMULSION DRESSING CHANGED PRN THROUGHOUT SHIFT. MEDICATED FOR PAIN PER EMAR. ROUTINE FLUIDS AND ABX RUNNING. SBA UP TO BATHROOM. POOR APPETITE THIS SHIFT. TOLERATING WATER. VOIDING URINE. NO BM THIS SHIFT.
[2021-07-24 05:47] LABS: BASOPHILS ABSOLUTE AUTO 0.04 K/mm3 (0.00-0.23); BASOPHILS PERCENT AUTO 1 % (0-2); EOSINOPHILS ABSOLUTE AUTO 0.31 K/mm3 (0.00-0.68); EOSINOPHILS PERCENT AUTO 4 % (0-6); Hematocrit 26.6 % (33.0-51.0); IMMATURE GRAN PERCENT AUTO 1 % (0-1); LYMPHOCYTES PERCENT AUTO 10 % (21-46); MONOCYTES ABSOLUTE AUTO 0.76 K/mm3 (0.16-1.47); MONOCYTES PERCENT AUTO 9 % (4-13); Mean Corpuscular HGB 23.1 pg (26.0-34.0); Mean Corpuscular HGB Conc 30.1 g/dL (31.5-36.5); Mean Corpuscular Volume 77 fL (80-100); Mean Platelet Volume 8.4 fL (9.1-12.4); NEUTROPHILS ABSOLUTE AUTO 6.05 K/mm3 (1.96-9.15); NEUTROPHILS PERCENT AUTO 75 % (41-73); Platelet Count 387 K/mm3 (150-400); RDW Coefficient Variation 17.4 % (11.7-14.2); RDW Standard Deviation 48.5 fL (35.1-46.3); Red Blood Cell Count 3.47 M/mm3 (3.80-5.20); White Blood Cell Count 8.06 K/mm3 (4.00-11.30)
[2021-07-24 06:18] LABS: Alanine Aminotransfer (ALT/SGP 25 U/L (12-78); Albumin, Blood 1.7 g/dL (3.4-5.0); Albumin/Globulin Ratio 0.4 (0.8-1.8); Alk Phos 75 U/L (50-136); Anion Gap 7 mmol/L (6-16); Aspartate Aminotrans (AST/SGOT 15 U/L (12-37); Bilirubin, Total 0.2 mg/dL (0.1-1.0); Blood Urea Nitrogen 3 mg/dL (8-24); Bun/Creatinine Ratio 3.4 (12.0-20.0); CO2, Blood 28 mmol/L (21-32); Calcium, Blood 7.7 mg/dL (8.5-10.1); Chloride, Blood 105 mmol/L (98-108); Creatinine, Blood 0.88 mg/dL (0.40-1.00); Globulin, Blood 4.4 g/dL (2.2-4.0); Glomerular Filtration Rate >60 (60-); Glucose, Blood 89 mg/dL (70-99); Potassium, Blood 3.4 mmol/L (3.5-5.5); Sodium, Blood 140 mmol/L (136-145); Total Protein, Blood 6.1 g/dL (6.4-8.2)
--- NOTE | 2021-07-24 06:24 | NUR ---
SHIFT SUMMARY S/O SKIN INFECTION, A/O X4, VSS, TOLERATING PO, INDEPENDENT IN THE ROOM, IV RUNNING AT TKO THROUGH POWERGLIDE, PAIN MANAGED PER EMAR, NO ACUTE EVENTS THIS SHIFT. CALL LIGHT IN REACH, WILL CTM AND REPORT TO DAY RN.
--- NOTE | 2021-07-24 14:53 | NUR ---
PT CRYING C/O OF PAIN, ACUNA, AND NAUSEA. MEDICATED PER ORDERS FOR PAIN AND NAUSEA. PT REPORTED PASSED FLATUS WHEN USED RESTROOM BUT NO BM. ENCOURAGED PT TO AMBULATE IN ROOM TO ENCOURAGE BM. PT SITTING ONE EDGE OF BED AT THIS TIME. PLACED COOL COMPRESS TO BACK OF NECK FOR COMFORT. CALL LIGHT IN REACH.
--- NOTE | 2021-07-24 17:06 | NUR ---
SUMMARY PT HAS FELT POORLY T/O MOST OF DAY. SLEPT OFF AND ON. REPORTED NAUSEA/MEDICATED PER ORDERS FOR THIS. PT PAINFUL W/MOVEMENT/MEDICATED FOR PAIN PER ORDERS. PT TEARFUL THIS AFTERNOON. INDEPENDENT IN ROOM. CALL LIGHT IN REACH. ADMINISTERED MEDS PER ORDERS.
--- NOTE | 2021-07-25 07:17 | NUR ---
SHIFT SUMMARY S/P SKIN INFECTION, A/O X4, VSS, TOLERATING PO BUT PT REPORTS FEELING NAUSEAUS SINCE WEDNESDAY (DISCUSSED THIS AND CORRELATING MED CHANGES ON THAT DAY WITH DAY RN), PT REPORTS SOME RELIEF c REGLAN BUT VERY LITTLE HELP FROM ZOFRAN. PAIN MANAGED PER EMAR, OIL EMULSION DRESSINGS TO BUTTOCKS CHANGED OUT AFTER BM TONIGHT. INDEPENDENT TO BSC. NO ACUTE EVENTS THIS SHIFT. CALL LIGHT IN REACH, REPORT GIVEN TO DAY RN.
[2021-07-25 09:12] LABS: Creatinine, Blood 0.86 mg/dL (0.40-1.00); Vancomycin, Trough 16.5 ug/mL (5.0-10.0)
--- NOTE | 2021-07-25 17:45 | NUR ---
PT DROWSY AFTER PHENERGAN AND STATES NAUSEA IS CONTROLLED AT THIS TIME. PT REPORTS EXCORIATED AREAS REMAIN PAINFUL. PT ABLE TO SHOWER INDEPENDENTLY. PAIN CONTROLLED WITH MEDS
--- NOTE | 2021-07-26 08:13 | NUR ---
SHIFT SUMMARY RASH IMPROVING PER PT. PAIN CONTROLLED WITH 1MG IV DILAUDID. NAUSEA CONTROLLED WITH REGLAN. NO EMESIS. NO ACUTE CHANGES OVER NIGHT. REPORT TO DAY SHIFT RN.
[2021-07-26 09:05] LABS: BASOPHILS ABSOLUTE AUTO 0.06 K/mm3 (0.00-0.23); BASOPHILS PERCENT AUTO 1 % (0-2); EOSINOPHILS ABSOLUTE AUTO 0.31 K/mm3 (0.00-0.68); EOSINOPHILS PERCENT AUTO 4 % (0-6); Hematocrit 29.1 % (33.0-51.0); Hemoglobin 8.8 g/dL (11.5-16.0); IMMATURE GRAN ABSOLUTE AUTO 0.19 K/mm3 (0.00-0.10); IMMATURE GRAN PERCENT AUTO 2 % (0-1); LYMPHOCYTES ABSOLUTE AUTO 1.48 K/mm3 (0.84-5.20); LYMPHOCYTES PERCENT AUTO 17 % (21-46); MONOCYTES ABSOLUTE AUTO 0.88 K/mm3 (0.16-1.47); MONOCYTES PERCENT AUTO 10 % (4-13); Mean Corpuscular HGB 23.5 pg (26.0-34.0); Mean Corpuscular HGB Conc 30.2 g/dL (31.5-36.5); Mean Corpuscular Volume 78 fL (80-100); Mean Platelet Volume 8.5 fL (9.1-12.4); NEUTROPHILS PERCENT AUTO 67 % (41-73); Platelet Count 374 K/mm3 (150-400); RDW Coefficient Variation 18.1 % (11.7-14.2); RDW Standard Deviation 49.7 fL (35.1-46.3); Red Blood Cell Count 3.75 M/mm3 (3.80-5.20); White Blood Cell Count 8.92 K/mm3 (4.00-11.30)
[2021-07-26] MEDS ORDERED: ACET325 PO (09:06)
[2021-07-26] MEDS ORDERED: CEFD300 PO (09:07)
[2021-07-26] MEDS ORDERED: PEPCID20 MG PO (09:08)
[2021-07-26] MEDS ORDERED: DOCUZEN 8.6-501 EACH PO (09:08)
[2021-07-26] MEDS ORDERED: Ativan1 MG PO (09:10)
[2021-07-26] MEDS ORDERED: NOVOLOG FL100 UNIT/3 SC (09:10)
[2021-07-26] MEDS ORDERED: LOSA50 PO (09:11)
[2021-07-26] MEDS ORDERED: METO10SY PO (09:12)
[2021-07-26] MEDS ORDERED: METR500 (09:14)
[2021-07-26] MEDS ORDERED: METR500 PO (09:15)
[2021-07-26 09:25] LABS: Alanine Aminotransfer (ALT/SGP 36 U/L (12-78); Albumin, Blood 1.8 g/dL (3.4-5.0); Albumin/Globulin Ratio 0.4 (0.8-1.8); Alk Phos 70 U/L (50-136); Anion Gap 7 mmol/L (6-16); Aspartate Aminotrans (AST/SGOT 59 U/L (12-37); Bilirubin, Total 0.3 mg/dL (0.1-1.0); Blood Urea Nitrogen 3 mg/dL (8-24); Bun/Creatinine Ratio 3.4 (12.0-20.0); CO2, Blood 30 mmol/L (21-32); Calcium, Blood 7.8 mg/dL (8.5-10.1); Chloride, Blood 103 mmol/L (98-108); Creatinine, Blood 0.88 mg/dL (0.40-1.00); Globulin, Blood 4.3 g/dL (2.2-4.0); Glomerular Filtration Rate >60 (60-); Glucose, Blood 98 mg/dL (70-99); Potassium, Blood 3.4 mmol/L (3.5-5.5); Sodium, Blood 140 mmol/L (136-145); Total Protein, Blood 6.1 g/dL (6.4-8.2)
[2021-07-26] MEDS ORDERED: ONDA4ODT MM (09:56)
[2021-07-26] MEDS ORDERED: ROXICODONE5 MG PO (09:57)
[2021-07-26] MEDS ORDERED: PRED-G 1% EYE DR5 ML BOTHEYES (09:58)
[2021-07-26] MEDS ORDERED: PROM25 PO (09:59)
[2021-07-26] MEDS ORDERED: SIME80CH PO (09:59)
[2021-07-26] MEDS ORDERED: SULF500 PO (10:00)
[2021-07-26] MEDS ORDERED: Diflucan100 MG PO (10:01)
[2021-07-26] MEDS ORDERED: VISBIOME 112.51 EACH PO (10:01)
--- NOTE | 2021-07-26 13:13 | NUR ---
DISCHARGE PT IS A/O X4, SBA/IND IN ROOM. TOLERATING PO INTAKE AND VOIDING. HAS HAD SOME NAUSEA WHICH IS MANAGED WITH MEDICATION. PAIN MANAGED WITH PO PAIN MED PER ORDERS. DC INSTRUCTIONS REVIEWED WITH PT; REPORTS UNDERSTANDING. POWERGLIDE DC'D WNL. DC INSTRUCTIONS AND SCRIPTS SENT HOME W/ PATIENT; OTHER MEDICATIONS FAXED TO PHARMACY. EXTRA DRESSING SUPPLIES ALSO SENT WITH PT. PERSONAL BELONGINGS RETURNED. PT ESCORTED TO VEHICLE VIA WHEELCHAIR AT 1310.
== END 2021-07-26 13:13 | disposition home health service (06) | DRG 872 ==
LOC: ER 12:01 → ERHOLD 14:40 → SURS 14:40
PROVIDERS: Emergency Medicine; Family Medicine; Nurse Practitioner Acute Care; Pharmacist; Surgery; ADMIT Internal Medicine
PROC: 30233N1 Transfusion of Nonautologous Red Blood Cells into Peripheral Vein, Percutaneous Approach (ICD-10-PCS; principal; 2021-07-18)
PROC: 0DBP8ZX Excision of Rectum, Via Natural or Artificial Opening Endoscopic, Diagnostic (ICD-10-PCS; 2021-07-21)
PROC: 0DBN8ZX Excision of Sigmoid Colon, Via Natural or Artificial Opening Endoscopic, Diagnostic (ICD-10-PCS; 2021-07-21)
DX: A41.1 Sepsis due to other specified staphylococcus (principal); Z68.41 Body mass index [BMI] 40.0-44.9, adult; K62.5 Hemorrhage of anus and rectum; N17.9 Acute kidney failure, unspecified; H20.9 Unspecified iridocyclitis; Z20.822 Contact with and (suspected) exposure to COVID-19; R65.20 Severe sepsis without septic shock; B37.2 Candidiasis of skin and nail; L30.4 Erythema intertrigo; K64.9 Unspecified hemorrhoids; L98.419 Non-pressure chronic ulcer of buttock with unspecified severity; I10 Essential (primary) hypertension; E88.09 Other disorders of plasma-protein metabolism, not elsewhere classified; K21.9 Gastro-esophageal reflux disease without esophagitis; F41.9 Anxiety disorder, unspecified; D50.9 Iron deficiency anemia, unspecified; K59.00 Constipation, unspecified; F32.9 Major depressive disorder, single episode, unspecified; E11.9 Type 2 diabetes mellitus without complications; E89.0 Postprocedural hypothyroidism; E66.9 Obesity, unspecified; Z88.8 Allergy status to other drugs, medicaments and biological substances; Z91.048 Other nonmedicinal substance allergy status; Z79.84 Long term (current) use of oral hypoglycemic drugs; Z79.899 Other long term (current) drug therapy; Z90.49 Acquired absence of other specified parts of digestive tract; Z85.850 Personal history of malignant neoplasm of thyroid; Z87.891 Personal history of nicotine dependence; Z86.010 Personal history of colon polyps
CPT/HCPCS: 36415; 36430; 71260; 74177; 80048; 80053; 80202; 81025; 82550; 82565; 82728; 82947; 83540; 83550; 83605; 83631; 83735; 83993; 84100; 85025; 85651; 86140; 86160; 86225; 86235; 86850; 86900; 86901; 86923; 87040; 87070; 87071; 87075; 87177; 87205; 87209; 88305; 88312; 96365; 96366; 96375; 97110; 97116; 97162; 97530; 99284-25; A9270; J0696; J1170; J1450; J2405; J2543; J2550; J2704; J2765; J2916; J3010; J3370; J7030; J7050; J7060; J7120; J7512; P9016; Q9967; U0004

== ENCOUNTER 2021-08-08 18:56 | Inpatient (IN) | payer OTHER ==
[~2021-08-08] VITALS: Ht 170.2 cm; Wt 113.5 kg
[~2021-08-08 18:56] MED LIST changes: +ACET325 PO; +Ativan1 MG PO; +BUPR150ER PO; +CEFD300 PO; +CONSTULOSE10 GM/155 PO; +DOCUZEN 8.6-501 EACH PO; +Diflucan100 MG PO; +EFFEXOR XR150 MG PO; +GLYBURIDE5 M2 PO; +HUMIRA(CF)40 MG/0.4 SC; +LOSARTAN-HCTZ1 EAC6 PO; +METO10SY PO; +METR500; +METR500 PO; +MONT10T PO; +NOVOLOG FL100 UNIT/3 SC; +ONDA4ODT MM; +PEPCID20 MG PO; +PRED-G 1% EYE DR5 ML BOTHEYES; +ROXICODONE5 MG PO; +SIME80CH PO; +SITA100T2 PO; +SULF500 PO; +Synthroid/Levo0.2 MG PO; +VISBIOME 112.51 EACH PO
[2021-08-08 19:46] LABS: BASOPHILS ABSOLUTE AUTO 0.11 K/mm3 (0.00-0.23); BASOPHILS PERCENT AUTO 1 % (0-2); EOSINOPHILS ABSOLUTE AUTO 0.27 K/mm3 (0.00-0.68); EOSINOPHILS PERCENT AUTO 3 % (0-6); Hematocrit 35.8 % (33.0-51.0); Hemoglobin 11.1 g/dL (11.5-16.0); IMMATURE GRAN ABSOLUTE AUTO 0.09 K/mm3 (0.00-0.10); IMMATURE GRAN PERCENT AUTO 1 % (0-1); LYMPHOCYTES ABSOLUTE AUTO 1.54 K/mm3 (0.84-5.20); LYMPHOCYTES PERCENT AUTO 14 % (21-46); MONOCYTES ABSOLUTE AUTO 0.96 K/mm3 (0.16-1.47); MONOCYTES PERCENT AUTO 9 % (4-13); Mean Corpuscular Volume 78 fL (80-100); Mean Platelet Volume 8.5 fL (9.1-12.4); NEUTROPHILS ABSOLUTE AUTO 7.75 K/mm3 (1.96-9.15); NEUTROPHILS PERCENT AUTO 72 % (41-73); Platelet Count 568 K/mm3 (150-400); RDW Coefficient Variation 19.8 % (11.7-14.2); RDW Standard Deviation 54.7 fL (35.1-46.3); Red Blood Cell Count 4.62 M/mm3 (3.80-5.20); White Blood Cell Count 10.72 K/mm3 (4.00-11.30)
[2021-08-08 20:08] LABS: Alanine Aminotransfer (ALT/SGP 47 U/L (12-78); Albumin, Blood 2.7 g/dL (3.4-5.0); Albumin/Globulin Ratio 0.5 (0.8-1.8); Alk Phos 105 U/L (50-136); Anion Gap 5 mmol/L (6-16); Aspartate Aminotrans (AST/SGOT 37 U/L (12-37); Bilirubin, Total 0.4 mg/dL (0.1-1.0); Blood Urea Nitrogen 14 mg/dL (8-24); CO2, Blood 25 mmol/L (21-32); Calcium, Blood 8.6 mg/dL (8.5-10.1); Chloride, Blood 106 mmol/L (98-108); Creatinine, Blood 0.93 mg/dL (0.40-1.00); Globulin, Blood 5.5 g/dL (2.2-4.0); Glomerular Filtration Rate >60 (60-); Glucose, Blood 148 mg/dL (70-99); Potassium, Blood 4.2 mmol/L (3.5-5.5); Sodium, Blood 136 mmol/L (136-145); Total Protein, Blood 8.2 g/dL (6.4-8.2)
[2021-08-09 01:00] LABS: SARS-Cov-2 (COVID-19) PCR, MMC NEGATIVE (NEGATIVE)
[2021-08-09 01:13] LABS: BASOPHILS ABSOLUTE AUTO 0.04 K/mm3 (0.00-0.23); BASOPHILS PERCENT AUTO 0 % (0-2); EOSINOPHILS ABSOLUTE AUTO 0.01 K/mm3 (0.00-0.68); EOSINOPHILS PERCENT AUTO 0 % (0-6); Hematocrit 32.9 % (33.0-51.0); IMMATURE GRAN ABSOLUTE AUTO 0.06 K/mm3 (0.00-0.10); IMMATURE GRAN PERCENT AUTO 1 % (0-1); LYMPHOCYTES PERCENT AUTO 7 % (21-46); MONOCYTES ABSOLUTE AUTO 0.17 K/mm3 (0.16-1.47); MONOCYTES PERCENT AUTO 2 % (4-13); Mean Corpuscular HGB 23.9 pg (26.0-34.0); Mean Corpuscular HGB Conc 30.4 g/dL (31.5-36.5); Mean Corpuscular Volume 79 fL (80-100); Mean Platelet Volume 8.7 fL (9.1-12.4); NEUTROPHILS ABSOLUTE AUTO 9.01 K/mm3 (1.96-9.15); NEUTROPHILS PERCENT AUTO 90 % (41-73); Platelet Count 461 K/mm3 (150-400); RDW Coefficient Variation 19.7 % (11.7-14.2); RDW Standard Deviation 54.8 fL (35.1-46.3); Red Blood Cell Count 4.18 M/mm3 (3.80-5.20); White Blood Cell Count 9.99 K/mm3 (4.00-11.30)
[2021-08-09 01:30] LABS: Alanine Aminotransfer (ALT/SGP 49 U/L (12-78); Albumin, Blood 2.5 g/dL (3.4-5.0); Albumin/Globulin Ratio 0.5 (0.8-1.8); Alk Phos 101 U/L (50-136); Anion Gap 5 mmol/L (6-16); Aspartate Aminotrans (AST/SGOT 38 U/L (12-37); Bilirubin, Total 0.3 mg/dL (0.1-1.0); Blood Urea Nitrogen 16 mg/dL (8-24); Bun/Creatinine Ratio 17.4 (12.0-20.0); CO2, Blood 24 mmol/L (21-32); Calcium, Blood 8.3 mg/dL (8.5-10.1); Chloride, Blood 106 mmol/L (98-108); Creatinine, Blood 0.92 mg/dL (0.40-1.00); Globulin, Blood 5.2 g/dL (2.2-4.0); Glomerular Filtration Rate >60 (60-); Glucose, Blood 198 mg/dL (70-99); Potassium, Blood 4.7 mmol/L (3.5-5.5); Sodium, Blood 135 mmol/L (136-145); Total Protein, Blood 7.7 g/dL (6.4-8.2)
[2021-08-09 05:28] LABS: Source, Urine Catheter
[2021-08-09 05:36] LABS: Appearance, Urine Clear (Clear); Bilirubin, Urine Neg (Neg); Blood, Urine 1+ (Neg); Color, Urine Amber (P-Yellow); Glucose Qualitative, Urine 2+ (Neg); Ketones, Urine 2+ (Neg); Leukocyte Esterase, Urine 1+ (Neg); Nitrite, Urine Pos (Neg); Protein, Urine 1+ (Neg); Specific Gravity, Urine 1.025 (1.003-1.022); Urobilinogen, Urine NORM (Normal)
[2021-08-09 05:56] LABS: Red Blood Cells, Urine 0-2 /hpf (0-2)
[2021-08-09 05:57] LABS: Bacteria Few /hpf; Mucus Light (0-Heavy); Squamous Epithelial Cells Few /hpf (Few)
--- NOTE | 2021-08-09 06:20 | NUR ---
SHIFT SUMMARY PT. WAS ADMITTED THIS MORNING. A/OX4 CALLS APPROPRIATELY AND COOPERATES WITH STAFF. PT. ON RA O2 STATS ABOVE 92%. V.S. W/I NORMAL LIMITS. PT. IS COVID NEG. HAS A BAGLEY IN PLACE. TOLERATES PO DIET, DENIES N/V OR ANY ABD. PAIN. DOES HAVE PAIN T/O AREAS WITH ULCERS UNDER BREAST, GROIN TO BUTTOCK AND THIGH AREA. PT. REFUSED ANY DRESSINGS. DID EDUCATE PT. AND WAS ABLE TO PUT A ABD. DRESSING PAD ON GROIN AREA AND L. UPPER BREAST AREA. THIS MORNING AROUND 6:00AM PT. IN DISTRESS FOUND OUT A FAMILY MEMBER D/T COVID. WILL CONT. TO MONITOR PT. TILL SHIFT CHANGE.
--- NOTE | 2021-08-09 07:20 | NUR ---
recvd report from previous RN, pt sleeping in bed, bed in lowest position, bed rails up x 2, call light within reach
--- NOTE | 2021-08-09 10:00 | NUR ---
dr gerardo roundjulia on pt.
--- NOTE | 2021-08-09 17:19 | NUR ---
ASSUMED CARE AT 1630, A&OX4, VSS/RA, CBGS PER EMAR, IV LFA IVF @ 25 MLS/KVO W/UNASYN Q6, BEDREST/REPOSITIONS WITH ASSIST. PAIN MANAGED WITH 10 MG OXY AND TORADOL. MARY PO. BAGLEY PATENT & DRAINING ORANGE CLEAR URINE, OFF FLOOR. WILL REPORT TO ONCOMING NOC DARNELL.
--- NOTE | 2021-08-10 02:35 | NUR ---
SHIFT SUMMARY: CHROHNS SUBCUTANEOUS PATIENT IS ALERT AND ORIENTED X4. VS ARE WNL AND IS ON RA. PAIN IS MANAGED PER EMAR ORDERS. PATIENT HAD DRESSING CHANGES ON HER ABD FOLDS, PANNUS, AND LEFT BREAST AT BEGINNING OF SHIFT. PATIENT WAS ANXIOUS TOWARDS THE BEGINNING OF SHIFT AND WAS GIVEN PO ATIVAN TO AIDE IN THE ANXIOUS FEELING. BAGLEY IS PATENT AND IS DRAINING ORANGE COLORED URINE PER GRAVITY. CALLS APPROPRIATELY. CALL LIGHT WITHIN REACH.
--- NOTE | 2021-08-10 15:30 | NUR ---
TELEPHONE CALL WITH PHARMACY, REMICADE WILL GO THROUGH INSURANCE AND BE APPROPRIATE IN OUT-PT ODALIS FACILIY. IN THE HOSPITAL REMICADE IS EXTREMELY EXPENSIVE AND OUT OF POCKET. TELEPHONE CALL WITH HOSPITALIST, HOLD REMICADE IN HOSPITAL R/T TO ABOVE INFORMATION.
--- NOTE | 2021-08-10 15:32 | NUR ---
TELEPHONE CALL TO DERMATOLOGY DR RAMÍREZ OFFICE AND LM FOR REQUEST FOR TO SEE PT WHILE IN HOSPITAL PER PT AND HOSPITALIST REQUEST.
--- NOTE | 2021-08-10 15:39 | NUR ---
SHIFT SUMMARY PT A&OX4, VSS/RA CBGS/CNI, OPEN ULCERATIONS VERY PAINFUL UNDER BREASTS/PANUS/ GROIN/UPPER THIGHS-BETWEEN LEGS/BUTTOCKS. DRESSING CHANGES X2 STERILE WATER SOAKED ABD/GAUZE PADS. PAIN MANAGED WITH 10 MG OXY AND TORADOL PER EMAR. MARY PO, DENIES N&V. POST BAGLEY VOID 200 MLS. POWERGLIDE PLACED FOR OUTPT REMICADE TREATMENTS AT [facility]; IVF KVO & ABX PER EMAR. AMBULATING SBA TO BRP, UP TO CHAIR FOR MEALS, SHOWERED TODAY. WILL REPORT TO ONCOMING NOC DARNELL.
--- NOTE | 2021-08-11 06:39 | NUR ---
PT IS A/OX4. ABLE TO MAKE HER NEEDS KNOWN. NO EVENTS DURING THE NIGHT. BAGLEY HAS BEEN D/C'D, IS VOIDING W/O DIFFICULTY. NO C/O N/V. BT'S POS X4. FBS AT HS: 126. POWERGLIDE TO LUE PATENT, RECEIVING IV ABX. HAS RAW/RED/OPEN AREAS TO UNDER LEFT BREAST/PANNUS AND GROIN AREAS. DRSG'S CHANGED TWICE DURING NOC. AREAS PAINFUL TO TOUCH AND W/WOUND CARE. PAIN MANAGED PER PRN PAIN MEDS.
--- NOTE | 2021-08-11 18:35 | NUR ---
SHIFT SUMMARY PT IS ADMITTED FOR CUTANEOUS CROHN'S. ULCERATED AREAS LOCATED IN GROIN, BUTTOCKS, LOWER LEFT ABD, AND UNDER LEFT BREAST. ULCERATED AREAS ARE PAINFUL AND PT'S PAIN HAS BEEN WELL MANAGED PER EMAR. APPLIED ABD PADS WITH SALINE TO ALL AREAS X2 TODAY. PT IS INDEPENDENT IN ROOM AND DENIES N/V. TOLERATING FOOD BUT DOES NOT HAVE MUCH OF AN APPETITE.
[2021-08-11 19:08] LABS: HBSAG SCREEN Negative (Negative); HEP B CORE AB, TOT Negative (Negative)
[2021-08-12 04:35] LABS: BASOPHILS ABSOLUTE AUTO 0.02 K/mm3 (0.00-0.23); BASOPHILS PERCENT AUTO 0 % (0-2); EOSINOPHILS PERCENT AUTO 0 % (0-6); Hemoglobin 10.1 g/dL (11.5-16.0); IMMATURE GRAN ABSOLUTE AUTO 0.14 K/mm3 (0.00-0.10); IMMATURE GRAN PERCENT AUTO 2 % (0-1); LYMPHOCYTES ABSOLUTE AUTO 0.79 K/mm3 (0.84-5.20); LYMPHOCYTES PERCENT AUTO 10 % (21-46); MONOCYTES ABSOLUTE AUTO 0.14 K/mm3 (0.16-1.47); MONOCYTES PERCENT AUTO 2 % (4-13); Mean Corpuscular HGB 23.9 pg (26.0-34.0); Mean Corpuscular HGB Conc 31.6 g/dL (31.5-36.5); Mean Corpuscular Volume 76 fL (80-100); Mean Platelet Volume 8.6 fL (9.1-12.4); NEUTROPHILS ABSOLUTE AUTO 6.55 K/mm3 (1.96-9.15); NEUTROPHILS PERCENT AUTO 86 % (41-73); Platelet Count 408 K/mm3 (150-400); RDW Coefficient Variation 18.9 % (11.7-14.2); RDW Standard Deviation 51.7 fL (35.1-46.3); Red Blood Cell Count 4.22 M/mm3 (3.80-5.20); White Blood Cell Count 7.64 K/mm3 (4.00-11.30)
[2021-08-12 04:59] LABS: Anion Gap 6 mmol/L (6-16); Blood Urea Nitrogen 20 mg/dL (8-24); Bun/Creatinine Ratio 21.2 (12.0-20.0); CO2, Blood 24 mmol/L (21-32); Calcium, Blood 8.3 mg/dL (8.5-10.1); Chloride, Blood 103 mmol/L (98-108); Creatinine, Blood 0.94 mg/dL (0.40-1.00); Glomerular Filtration Rate >60 (60-); Glucose, Blood 312 mg/dL (70-99); Potassium, Blood 4.3 mmol/L (3.5-5.5); Sodium, Blood 133 mmol/L (136-145)
--- NOTE | 2021-08-12 06:42 | NUR ---
PT IS A/OX3. ABLE TO MAKE HER NEEDS KNOWN. PT VERY TEARFUL AND ANXIOUS THROUGH OUT THE NIGHT, "MY MIND JUST KEEPS RACING. I CAN'T TURN IT OFF." PT REPORTS SHE IS CONCERNED ABOUT HER MOM AND DAD, BOTH OF WHOM HAVE BEEN EXPOSED NUMEROUS TIMES BY COVID 19 POS FAMILY MEMBERS. PT IS ALSO VERY UPSET OVER LEARNING THAT A FRIEND OF HERS RECENTLY FROM COVID 19. "HE RIGHT HERE IN THIS HOSPITAL JUST A COUPLE OF WEEKS AGO AND I DIDN'T KNOW." PT ADMITTED FOR CUTANOUS CROHNS. HAS AREAS OF RED MACERATION AND ULCERS TO GROIN, PANNUS AND UNDER LEFT BREAST. SOME TISSUE TO PANNUS HAS SPLIT. PT REFUSED TO HAVE AREAS COVERED W/DRSG DURING THE NIGHT, SAYING "I WANT THEM OPEN TO AIR, IT FEELS BETTER." PT INSTRUCTED ON RATIONALE FOR COVERING AREAS W/DRSG'S AND RISK AND S/SX OF INFECTION. PT GAVE VERBAL UNDERSTANDING. PT IS INDEPENDENT IN ROOM. VOIDS W/O DIFFICULTY. DENIES ANY N/V. ABD SOFT, NON-TENDER. BT'S POS. SENNA BID. ANNAMARIE POWERGLIDE PATENT, RECEIVING IV ABX. TOLERATING ADA DIET WELL. FBS AT HS: 206. PRN ATIVAN, OXY AND TYLENOL GIVEN PER EMAR. STARTED SEMGLEE 10 UNITS THIS AM.
--- NOTE | 2021-08-12 15:19 | NUR ---
DR. SAXENA NOTIFIED OF MODERATE SUICIDE RISK LEVEL BASED ON SUCIDE ASSESSMENT. PT HAS 1:1 SITTER AT THIS TIME. WILL CONTINUE TO MONITOR AND MOVE PT TO ROOM WITH A CAMERA.
--- NOTE | 2021-08-12 16:41 | NUR ---
Palliative Care Consult: Sharon is a 45 year old who was recetrnly diagnosised with crohn's disease which has manifested in her skin. She is tearful and overwhelmed during the visit. Earlier in the shift per staff report Sharon verbalized some SI thoughts. Sharon reports from a very young age that she has always been anxious and felt that she needed to make sure everyone in her family was always ok and had enough to eat. She reports waking up at night as a child and going in to check on everyone as they slept. She verbalizes feeling like a burden to her mother at this time and that is very frustrating to her. Sharon verbalizes grief, sadness, guilt, fear and hopelessness during during the visit. She is overwhelmed by her current situation. She works at [employer] in [place] however she has been unable to work for the past 3.5 months due to the open skin sores and pain. She reports she is behind on her mortgage payments on her home which was previously owned by her grandparents. She is fearful that she will lose her home. She had to recently give up one of her dogs because she couldn't care for them. She also reports losing several people close to her to [email or web address]. She has no income currently and is worried about how she will pay for food, medical care and her home. Emotional support provided to Sharon. Allowed to the talk and express her feelings. She was quiet at first but after some time she was willing to talk. A lot of the time she looked down at the ground, however on occasion she made good eye contact. Her skin lesions are improving according to the finisher special stocks. Sharon states that she is looking forward to going home possibly tomorrow. Spoke with Lynette in CM re: pt's desire for assistance in obtaining additional information and community resources. Lynette states she will follow up with Sharon re: the social security contact information for benefits. Bedside nursing updated. Dr. Flowers has been consulted and has not yet met with Sharon. PC to remain available for symptom managment, disease education and support prn.
--- NOTE | 2021-08-12 17:50 | NUR ---
SHIFT SUMMARY PT ADMITTED FOR CUTANEOUS CROHN'S DISEASE. PT HAS LARGE ERYTHEMATOUS ULCERATED LESIONS IN GROIN, COCCYX, LOWER ABD AND UNDER LEFT BREAST. PT IS A&O X4. SHE HAS HAD SOME PAIN TODAY AND WAS TREATED PER EMAR. SHE IS INDEPENDENT IN THE ROOM AND ABLE TO USE THE RESTROOM ON HER OWN. PT HAS BEEN VERY TEARFUL THROUGHOUT THE DAY AND BEGAN DISCUSSING HER SITUATION AND HOW DEPRESSED SHE GETS. CRIED MANY TIMES THROUGHOUT THE DAY WHEN THIS RN WENT TO CHECK ON HER. AT ONE POINT SHE DISCUSSED HER WORSENING DEPRESSION AND THAT SHE HAD A PLAN TO GO THROUGH WITH SUICIDE ABOUT A MONTH AGO BUT HER PARENTS CAME AND TOOK HER GUNS OUT OF HER HOUSE. THIS RN COMPLETED A SUICIDE SCREENING AND IT WAS MODERATE. 1 TO 1 MONITOR IN THE ROOM WITH HER AT ALL TIMES FROM TIME OF SUICIDE ASSESSMENT UNTIL PT MOVED TO ROOM 224 FOR VIDEO MONITORING. PT EDUCATED THAT SHE WOULD BE ON CAMERA MONITORING WHEN PLACED IN ROOM.
--- NOTE | 2021-08-12 18:31 | NUR ---
CALL TO DR. ECHAVARRIA AND DR. SAXENA PT HAS BECOME VERY UPSET IN ROOM AND IS DEMANDING TO BE SEEN SO SHE CAN GO HOME OR SHE WILL GO HOME ON HER OWN. CALLED DR. SAXENA AND WAS UNABLE TO REACH BUT LEFT A MESSAGE. DR. ECHAVARRIA CONTACTED AND WILL DO A TELEPYSCH APPT. WITH THE PT.
--- NOTE | 2021-08-12 18:58 | NUR ---
DR. SAXENA NOTIFIED THAT PT IS UPSET REGARDING SUICIDE PRECAUTIONS. ORDER PACED FOR TELEPSYCH TONIGHT IN ORDER TO ADDRESS PT CONCERNS AND DETERMINE IF PT NEEDS TO REMAIN ON SUICIDE PRECAUTIONS. WILL CONTINUE TO MONITOR.
--- NOTE | 2021-08-12 20:30 | NUR ---
PT VERY UPSET W/SUICIDE PRECAUTIONS. PT CRYING AND YELLING, STATES SHE HAS NO INTENTION OF KILLING OR HARMING HERSELF. PT STATES "I WAS JUST OVERWHELMED, I HAVE ANXIETY, I'M STRESSED, I JUST FOUND OUT MY FRIEND " "WOULDN'T YOU BE UPSET TOO?" PT EDUCATED ON IMPORTANCE OF MAINTAINING SAFETY PRECAUTIONS UNTIL PSYCH CONSULT AND CLEARED MY MD. PT CONT TO VERBALIZE FRUSTRATION W/SITUATION, STATES SHE FEELS LIKE SHE IS BEING PUNISHED. PT ANGRY THAT HER PHONE MOLD YARD WORKER WAS REMOVED, STATES "IF I WANTED TO HANG MYSELF, I WOULD USE SOMETHING IN HERE" "I CAME HERE TO GET HELP FOR MY CROHNS, NOW YOU MADE EVERYTHING WORSE" PT EDCUATED THAT NURSING STAFF ARE MANDATORY REPORTERS, AND NEED TO TAKE SUCH THREATS SERIOUSLY FOR PT SAFETY. PT AGAIN STATES "I'M NOT GOING TO DO ANYTHING, YAH, I WAS SUICIDAL IN THE PAST, I'M NOT NOW, I'M NOT CRAZY, NOW, I'M MORE UPSET, AND DON'T WANT TO COME HERE AGAIN" "NOW I WILL BE MARKED CRAZY AND EVERYONE WILL HIM SPECIALISTS ME" PT EDUCATED THAT SHE WILL NOT BE JUDGED FOR GETTING HELP, ASLO DISCUSSED HIPA AND THAT HER MEDICAL RECORDS ARE CONFIDENTIAL. PT TALKED ABOUT PREVIOUS MEETINGS W/COUNSELORS AND PSYCHIATRISTS, PT STATES SHE DOES NOT TRUST THEM, STATES "ALL THEY DO IS HIM SPECIALISTS YOU" EDCUATED THAT PSYCH CONSULTS ARE AN ATTEMPT TO HELP, NOT HIM SPECIALISTS. PT STATES SHE FEELS HER LIFE WILL BE RUINED, STATES "NOW I CAN'T GET MY CONCEALED CARRY PERMIT BECAUSE OF THIS" PT THREATENING TO LEAVE AMA, DISCUSSED PT'S CURRENT DX AND TX PLAN, AND HOW LEAVING AMA WOULD ALTER HER TX PLAN. PT STATES "I FINALLY FIGURED OUT WHAT IS WRONG WITH ME, WHY WOULD I HURT MYSELF NOW?" DISCUSSED TELE PSYCH ORDERS, PT AGREEABLE TO TELE PSYCH TONIGHT, BUT IS DEMANDING IT BE DONE ENIO. PT EDUCATED ON PROCESS AND THAT SHE WILL BE UPDATED SOON A TIME IS SCHEDULED.
--- NOTE | 2021-08-12 20:30 | NUR ---
PT REFUSING ASSESSMENT AT THIS TIME R/T ANXIETY AND FRUSTRATION OF SUICIDE PRECAUTIONS. PT DENYING SI AT THIS TIME. ATTEMPTED TO THERAPEUTICALLY COMMUNICATE W/PT, PT REMAINS UPSET. WILL ATTEMPTS ASSESSMENT AT A LATER TIME. SAFETY PRECAUTIONS AND REMOTE MONITORING IN PLACE.
--- NOTE | 2021-08-12 21:30 | NUR ---
PT APPOGETIC ABOUT PREVIOUS OUTBURTS, STATES "I'M SORRY FOR TAKING THIS OUT ON YOU, I KNOW IT'S NOT YOUR FAULT, YOU'RE JUST THE ONE THAT IS HERE" SUPPORT PROVIDED. PT APPEARS MORE CALM AT THIS TIME, IS AGREEABLE TO WAIT FOR TELE PSYCH TO BE SCHEDULED.
--- NOTE | 2021-08-12 22:01 | NUR ---
TELE PSYCH: CALL FROM TELE PSYCH SCHEDULE LINE, PT IS SCHEDULED FOR TELE PSYCH TO STARTED BY 2310 TONIGHT.
--- NOTE | 2021-08-12 23:41 | NUR ---
TELE PSYCH COMPLETED. PT CONT TO DENY SI, OR THOUGHTS OF SELF HARM. PER TELE PSYCH DR GOODE, PT IS NOT A RISK OF HARM TO HERSELF. DR GOODE SPOKE W/DR GONZALEZ. PER DR GONZALEZ, SUICIDE PRECAUTIONS CAN BE D/C AND OK TO CANCEL DR WHITE CONSULT. NURSING RESIDENT ASSISTANT UPDATED.
--- NOTE | 2021-08-13 00:40 | NUR ---
PT APPOLOGETIC FOR EARLIER OUTBURST. PT REASSURRED AND ENCOURAGED TO TALK ABOUT FEELINGS AND LIFE STRESSORS TO HELP PREVENT FEELINGS FROM ESCALATING. PT ALSO ENCOURAGED TO SEEK HELP FROM COUNSELOR OUT PT. PT REP PREV HX OF BAD EXPERIENCES W/COUNSELORS; DISCUSSED THAT THERE ARE MANY COUNSELORS W/DIFFERENT SPECIALTIES AND APPROACHES. ENC PT TO RESEARCH POTENTIAL COUNSELORS SO SHE MAY HAVE SOME CONTROL/INPUT IN WHO SHE FEELS MAY BE A BETTER FIT FOR HER.
--- NOTE | 2021-08-13 06:18 | NUR ---
PT VSS T/O NIGHT. WOUNDS OPEN TO AIR, PT DECLINED TO HAVE DRESSINGS APPLIED. PT DENIED SI, TELE PSYCH COMPLETED, PT CLEARED FROM PRECAUTIONS. PT ANXIOUS AND EMOTIONAL AT TIMES, SUPPORT PROVIDED PRN, PT IS RECEPTIVE TO THERAPEUTIC COMMUNICATION. PAIN AND ANXIETY MDG PER EMAR. PT WAS AWAKE FOR MOST OF NIGHT, REP SHE HAS DIFFICULTY SLEEPING MOST NIGHTS. PLAN FOR STELARA INJECTION THIS AFTERNOON BY DR RAMÍREZ, AND POSS D/C HOME.
--- NOTE | 2021-08-13 18:31 | NUR ---
SHIFT SUMMARY PT A&O X4 AND IN PLEASENT MOOD T/O SHIFT. PT TOLERATING ORAL INTAKE WELL. VOIDING WELL. AMBULATING WELL, STEADY GAIT. VSS. MEDICATING PAIN PER EMAR. PT INDEPENDENT IN SHOWER. DR. RAMÍREZ AND HOSPITALIST IN TO SEE PT.
--- NOTE | 2021-08-14 04:47 | NUR ---
SHIFT SUMMARY PT AOX4. NO ACUTE CHANGES OVERNIGHT. SHE HAS BEEN VERY PLEASANT. PT STS SHE FEELS A LOT BETTER AFTER TAKING A SHOWER IN THE AFTERNOON. IT DID HELPED WITH HER MOOD. SHE IS INDEPENDENT IN ROOM. VOIDING WITHOUT ANY ISSUES. SKIN ULCERATION UNDER BREASTS, SKIN FOLDS PANNUS/PELVIC AND COCCYX APPEARS TO BE RED AND MOIST. PT REPORTS PAIN IN THESE AREAS 5-6/10 PAIN LEVEL. PAIN MANAGED WITH 2 TAB OXY. PT HAD A SNACK AT MIDNIGHT AND ATIVAN X1 TO HELP HER SLEEP. ABX ADMINSTERED. CALL LIGHT WITHIN REACH. WILL PROVIDE REPORT TO ONCOMING NURSE.
[2021-08-14] MEDS ORDERED: HYDCHL25 PO (13:24)
[2021-08-14] MEDS ORDERED: LACT PO (13:25)
[2021-08-14] MEDS ORDERED: SENN187 PO (13:25)
[2021-08-14] MEDS ORDERED: ERGO50000 PO (13:26)
--- NOTE | 2021-08-14 16:35 | NUR ---
DISCHARGE PT DISCHARGED HOME FROM UNIT AT APROX 1635. PT GIVEN WRITTEN AND VERBAL DISCHARGE INSTRUCTIONS, VERBALIZED UNDERSTANDING. POWER GLIDE REMOVED. NEW RX'S FAXED TO [facility], WRITTEN RX FOR PAIN MEDICATION GIVEN TO PT, COPY IN CHART. WHEELCHAIR TO CAR.
== END 2021-08-14 16:29 | disposition home or self-care (01) | DRG 386 ==
LOC: ER 18:56 → SURS 18:57 → PCU 18:57 → SURS 18:58 → PCU 23:13 → ER 23:13 → SURS 08-09 01:31 → PCU 08-09 01:31 → SURS 08-09 10:26
PROVIDERS: Internal Medicine; Physician Assistant; Student in an Organized Health Care Education/Training Program; ADMIT Internal Medicine
DX: K50.918 Crohn's disease, unspecified, with other complication (principal); H20.9 Unspecified iridocyclitis; Z68.41 Body mass index [BMI] 40.0-44.9, adult; L03.314 Cellulitis of groin; Z20.822 Contact with and (suspected) exposure to COVID-19; E03.9 Hypothyroidism, unspecified; E11.9 Type 2 diabetes mellitus without complications; I10 Essential (primary) hypertension; K21.9 Gastro-esophageal reflux disease without esophagitis; E66.9 Obesity, unspecified; E55.9 Vitamin D deficiency, unspecified; F41.9 Anxiety disorder, unspecified; F32.9 Major depressive disorder, single episode, unspecified; Z85.850 Personal history of malignant neoplasm of thyroid; Z90.49 Acquired absence of other specified parts of digestive tract; Z87.891 Personal history of nicotine dependence; Z88.8 Allergy status to other drugs, medicaments and biological substances; Z79.899 Other long term (current) drug therapy; Z79.4 Long term (current) use of insulin; E66.01 Morbid (severe) obesity due to excess calories
CPT/HCPCS: 36415; 80048; 80053; 81001; 82306; 82947; 83605; 85025; 86317; 86704; 86708; 86803; 87040; 87340; 96361; 96365; 96366; 96375; 96376; 99284-25; A9270; G0378; J0295; J0696; J1650; J1815; J1885; J2270; J2930; J7030; J7050; U0004

== ENCOUNTER → 2021-08-18 | Outpatient (CLI) | payer OTHER ==
[~2021-08-18] MED LIST changes: +ERGO50000 PO; +FAMO20 PO; +LACT PO; +LOSARTAN POTAS100 M1 PO; +SENN187 PO; +Triamcinolone A15 G3 TOP
== END | disposition home or self-care (01) ==
LOC: LAB SHORT 14:58 → LAB 14:58
DX: L08.0 Pyoderma (principal)
CPT/HCPCS: 87070; 87205

== ENCOUNTER 2021-08-21 11:14 | Inpatient (IN) | payer OTHER ==
[~2021-08-21] VITALS: Ht 170.2 cm; Wt 111.8 kg
[~2021-08-21 11:14] MED LIST changes: -Ativan1 MG PO; -BUPR150ER PO; -EFFEXOR XR150 MG PO; -FAMO20 PO; -GLYBURIDE5 M2 PO; -LOSARTAN POTAS100 M1 PO; -MONT10T PO; -ROXICODONE5 MG PO; -SITA100T2 PO; -Synthroid/Levo0.2 MG PO; -Triamcinolone A15 G3 TOP
[2021-08-21 12:38] LABS: BASOPHILS ABSOLUTE AUTO 0.08 K/mm3 (0.00-0.23); BASOPHILS PERCENT AUTO 1 % (0-2); EOSINOPHILS ABSOLUTE AUTO 0.33 K/mm3 (0.00-0.68); EOSINOPHILS PERCENT AUTO 2 % (0-6); Hematocrit 35.1 % (33.0-51.0); IMMATURE GRAN ABSOLUTE AUTO 0.32 K/mm3 (0.00-0.10); IMMATURE GRAN PERCENT AUTO 2 % (0-1); LYMPHOCYTES ABSOLUTE AUTO 1.43 K/mm3 (0.84-5.20); LYMPHOCYTES PERCENT AUTO 10 % (21-46); MONOCYTES ABSOLUTE AUTO 1.03 K/mm3 (0.16-1.47); MONOCYTES PERCENT AUTO 8 % (4-13); Mean Corpuscular HGB 24.5 pg (26.0-34.0); Mean Corpuscular HGB Conc 31.3 g/dL (31.5-36.5); Mean Corpuscular Volume 78 fL (80-100); Mean Platelet Volume 8.9 fL (9.1-12.4); NEUTROPHILS ABSOLUTE AUTO 10.62 K/mm3 (1.96-9.15); NEUTROPHILS PERCENT AUTO 77 % (41-73); Platelet Count 344 K/mm3 (150-400); RDW Coefficient Variation 20.1 % (11.7-14.2); RDW Standard Deviation 57.1 fL (35.1-46.3); Red Blood Cell Count 4.49 M/mm3 (3.80-5.20); White Blood Cell Count 13.81 K/mm3 (4.00-11.30)
[2021-08-21 12:46] LABS: Alanine Aminotransfer (ALT/SGP 31 U/L (12-78); Albumin, Blood 2.6 g/dL (3.4-5.0); Albumin/Globulin Ratio 0.5 (0.8-1.8); Alk Phos 85 U/L (50-136); Anion Gap 8 mmol/L (6-16); Aspartate Aminotrans (AST/SGOT 24 U/L (12-37); Bilirubin, Total 0.4 mg/dL (0.1-1.0); Blood Urea Nitrogen 13 mg/dL (8-24); CO2, Blood 22 mmol/L (21-32); Calcium, Blood 9.3 mg/dL (8.5-10.1); Chloride, Blood 106 mmol/L (98-108); Globulin, Blood 4.8 g/dL (2.2-4.0); Glomerular Filtration Rate >60 (60-); Glucose, Blood 187 mg/dL (70-99); Potassium, Blood 4.1 mmol/L (3.5-5.5); Sodium, Blood 136 mmol/L (136-145); Total Protein, Blood 7.4 g/dL (6.4-8.2)
[2021-08-21] MEDS ORDERED: HYDCHL12.5 PO (14:17)
[2021-08-21] MEDS ORDERED: SITA100T2 PO (14:18)
[2021-08-21] MEDS ORDERED: GLYBURIDE5 M2 PO (14:18)
[2021-08-21] MEDS ORDERED: BUPR150ER PO (14:19)
[2021-08-21] MEDS ORDERED: EFFEXOR XR150 MG PO (14:19)
[2021-08-21] MEDS ORDERED: MONT10T PO (14:19)
[2021-08-21] MEDS ORDERED: Synthroid/Levo0.2 MG PO (14:20)
[2021-08-21] MEDS ORDERED: LOSARTAN POTAS100 M1 PO (14:20)
[2021-08-21] MEDS ORDERED: Ativan1 MG PO (14:34)
[2021-08-21] MEDS ORDERED: ROXICODONE5 MG PO (14:34)
--- NOTE | 2021-08-21 18:16 | NUR ---
PT IS AO X 4.PT ADMITTED TO THE FLOOR AT 1800 FROM ED,PT HAVE A RARE CRHON'S DISEASE THAT CONTRIBUTEING TO HE EXCORIATED ULCERS AND RASH FROM GROIN,UNDER BOTH BREAST,LOWER ABDOMEN AND TRUNK.PT IS IN BED,BED IN LOW POSITION, WILL CONTINUE TO MONITOR.
--- NOTE | 2021-08-22 03:13 | NUR ---
RECEIVED PATIENT IN BED AAOX3. TEARFUL AND ANXIOUS. PATIENT REPORTED NO RELIEF OF PAIN FROM OXYCODONE 5MG. HOSPITALIST NOTIFIED. OXYCODONE 10 MG PO PRN GIVEN WITH GOOD RELIEF. PATIENT REPORTS FEELING BETTER. RESTING IN BED WITHOUT DISTRESS. VSS. WILL CONTINUE TO PROVIDE COMFORT AND MONITOR FOR SAFETY.
[2021-08-22 05:21] LABS: BASOPHILS ABSOLUTE AUTO 0.05 K/mm3 (0.00-0.23); BASOPHILS PERCENT AUTO 1 % (0-2); EOSINOPHILS ABSOLUTE AUTO 0.33 K/mm3 (0.00-0.68); EOSINOPHILS PERCENT AUTO 4 % (0-6); Hematocrit 32.7 % (33.0-51.0); Hemoglobin 9.9 g/dL (11.5-16.0); IMMATURE GRAN ABSOLUTE AUTO 0.15 K/mm3 (0.00-0.10); IMMATURE GRAN PERCENT AUTO 2 % (0-1); LYMPHOCYTES ABSOLUTE AUTO 2.04 K/mm3 (0.84-5.20); LYMPHOCYTES PERCENT AUTO 23 % (21-46); MONOCYTES ABSOLUTE AUTO 0.83 K/mm3 (0.16-1.47); MONOCYTES PERCENT AUTO 9 % (4-13); Mean Corpuscular HGB Conc 30.3 g/dL (31.5-36.5); Mean Corpuscular Volume 79 fL (80-100); Mean Platelet Volume 9.1 fL (9.1-12.4); NEUTROPHILS ABSOLUTE AUTO 5.44 K/mm3 (1.96-9.15); NEUTROPHILS PERCENT AUTO 62 % (41-73); Platelet Count 341 K/mm3 (150-400); RDW Coefficient Variation 20.5 % (11.7-14.2); RDW Standard Deviation 58.7 fL (35.1-46.3); Red Blood Cell Count 4.12 M/mm3 (3.80-5.20); White Blood Cell Count 8.84 K/mm3 (4.00-11.30)
--- NOTE | 2021-08-22 05:40 | NUR ---
PATIENT COMPLAINS OF BURNING SENSATION TO ULCERS IN ABDOMINAL FOLDS. ICE PACK APPLIED. SHE ALSO REPORTS BLEEDING FROM ULCERATED AREAS IN BUTTOCKS. DARK BLOOD SEEN IN TOILET. PATIENT WAS ASSISTED BY STAFF. ENCOURAGED REPOSITIONING. OFFERED WOUND CARE AND REINFORCEMENT WITH ABDOMINAL PADS. PATIENT REFUSED. NO ACTIVE BLEEDING NOTED AT THIS TIME.
[2021-08-22 05:50] LABS: Alanine Aminotransfer (ALT/SGP 23 U/L (12-78); Albumin, Blood 2.2 g/dL (3.4-5.0); Albumin/Globulin Ratio 0.5 (0.8-1.8); Alk Phos 74 U/L (50-136); Anion Gap 9 mmol/L (6-16); Aspartate Aminotrans (AST/SGOT 15 U/L (12-37); Bilirubin, Total 0.4 mg/dL (0.1-1.0); Blood Urea Nitrogen 11 mg/dL (8-24); Bun/Creatinine Ratio 11.9 (12.0-20.0); CO2, Blood 23 mmol/L (21-32); Calcium, Blood 8.8 mg/dL (8.5-10.1); Chloride, Blood 107 mmol/L (98-108); Creatinine, Blood 0.92 mg/dL (0.40-1.00); Globulin, Blood 4.5 g/dL (2.2-4.0); Glomerular Filtration Rate >60 (60-); Glucose, Blood 140 mg/dL (70-99); Potassium, Blood 3.6 mmol/L (3.5-5.5); Sodium, Blood 139 mmol/L (136-145); Total Protein, Blood 6.7 g/dL (6.4-8.2)
--- NOTE | 2021-08-22 14:46 | NUR ---
Met with Sharon this afternoon. 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 She reports that earlier she wanted to go home as she felt that she was treated poorly and her pain was not managed. She states her pain level currently in a 4/10 which she reports is comfortable for her. She is now willing to stay. Staff reported earlier that she wanted to leave [place]. She also has questions of a possible transfer to [facility] for a dermatology consult. She reports her mechanical laboratory technician, Dre Richmond, locally is trying to get her into [facility]. Spoke with Karina SYED, who states a consult was placed for Dr. Richmond to help with a transfer to [facility]. Currently she is waiting for this consult to take place. Spoke with Dr. Trimble who states pt can stay on her current oxycodone 10 mg PO q6h prn pain or change to norco 5/325 2 tabs PO Q4hr prn pain. Returned to room to update Sharon on pain management and update her on the status of [facility] transfer. At this time Sharon plans to stay in hospital and will stick with the oxycodone for now as she is finally getting some relief. Explained that consult for Dr. Richmond was placed and we are waiting for thatconsult to happen before a transfer can possibly occur. Pt verbalized understanding. Nursing updated. PC to continue to follow for symptom managment and support.
--- NOTE | 2021-08-22 17:33 | NUR ---
SHIFT SUMMARY PT AAOX4, ABLE TO MAKE NEEDS KNOWN. PLEASANT AND COOPERATIVE TO CARE. MEDICATED FOR PAIN PER EMAR. NO C/O CP, SOB, OR N&V.PT REQUIRES SBA TO BATHROOM. PT CONSULTED WITH DR. RAMÍREZ DERMATOLOGY THIS SHIFT. PT CONT TO RECEIVED IV ABX ORDERED. NO ASE NOTED. PT APPEARS CALM AND COMFORTABLE IN BED AT THIS TIME. BED AT LOWEST POSITION. CALL LIGHT WITHIN REACH.
[2021-08-23] MEDS ORDERED: FAMO20 PO (00:57)
[2021-08-23] MEDS ORDERED: Triamcinolone A15 G3 TOP (00:57)
[2021-08-23] MEDS ORDERED: LOSARTAN-HCTZ1 EAC6 PO (00:58)
[2021-08-23 05:25] LABS: BASOPHILS ABSOLUTE AUTO 0.07 K/mm3 (0.00-0.23); BASOPHILS PERCENT AUTO 1 % (0-2); EOSINOPHILS ABSOLUTE AUTO 0.38 K/mm3 (0.00-0.68); EOSINOPHILS PERCENT AUTO 4 % (0-6); Hematocrit 32.1 % (33.0-51.0); Hemoglobin 9.7 g/dL (11.5-16.0); IMMATURE GRAN ABSOLUTE AUTO 0.13 K/mm3 (0.00-0.10); IMMATURE GRAN PERCENT AUTO 1 % (0-1); LYMPHOCYTES ABSOLUTE AUTO 2.04 K/mm3 (0.84-5.20); LYMPHOCYTES PERCENT AUTO 19 % (21-46); MONOCYTES ABSOLUTE AUTO 1.11 K/mm3 (0.16-1.47); MONOCYTES PERCENT AUTO 11 % (4-13); Mean Corpuscular HGB 24.4 pg (26.0-34.0); Mean Corpuscular HGB Conc 30.2 g/dL (31.5-36.5); Mean Corpuscular Volume 81 fL (80-100); NEUTROPHILS ABSOLUTE AUTO 6.77 K/mm3 (1.96-9.15); NEUTROPHILS PERCENT AUTO 65 % (41-73); Platelet Count 333 K/mm3 (150-400); RDW Coefficient Variation 20.1 % (11.7-14.2); RDW Standard Deviation 59.2 fL (35.1-46.3); Red Blood Cell Count 3.97 M/mm3 (3.80-5.20)
[2021-08-23 05:44] LABS: Bun/Creatinine Ratio 10.7 (12.0-20.0); C-REACTIVE PROTEIN, EXT RANGE 6.75 mg/dL (0.000-0.300); Calcium, Blood 8.4 mg/dL (8.5-10.1); Creatinine, Blood 1.03 mg/dL (0.40-1.00)
--- NOTE | 2021-08-23 06:21 | NUR ---
SHIFT SUMMARRY PATIENT REMAINS ALERT AND ORIENTED. COMPLAINS OF GROINS, BOTTOM, ABDOMINAL AND UNDER BREASTS SKIN PAIN. MANAGED WITH PRN OXYCDONE ORDERED WITH GOO EFFECTS. NO ACUTE MEDICAL DISTRESS THIS SHIFT.
--- NOTE | 2021-08-23 18:39 | NUR ---
Shift Summary, The patient is A/OX4 to person, place, time and event. The patient has been independent in the room and up to bathroom. She was able to take a shower today and was able to wash her wounds under her breast and in the groin areas, The patient has constant pain from the wounds under her breast and groin area. The pain is controlled with PRN pain meds per EMAR. The patient denies any chest pain or SOB. She is currently resting in her bed.
--- NOTE | 2021-08-24 04:37 | NUR ---
SHIFT SUMMARY- PT. A&OX4, PLEASANT AND COOPERATIVE WITH CARE. MEDICATED FOR PAIN 2X DURING THE NIGHT WITH GOOD EFFECT. PT. AWAKE MOST OF THE NIGHT RESTING QUIETLY IN BED, DENIED ANY OTHER NEEDS. CALL LIGHT WITHIN REACH AND SIDE RAILS UPX2. WILL CONT TO MONITOR.
[2021-08-24 04:58] LABS: Vancomycin, Trough 21.3 ug/mL (5.0-10.0)
--- NOTE | 2021-08-24 16:09 | NUR ---
echocardiogram complete
--- NOTE | 2021-08-24 20:18 | NUR ---
Shift Assessment, The patient is A/OX4 to person, place, time and event. The patient is cooperative and pleasent. She is on RA, denies chest pain, SOB. The patient is independent in the room. She c/o Pain from her wounds under her breast and groin area that have been controlled with pain meds per EMAR. The patient and this nurse talked about some goals and she stated she would like to have a BM and we talked about a wound consultation from the [facility] wound clinic. The Provider ordered the wound consultation and the medication to assist with a BM. The patient and this nurse also identified that she should remain pain free or below a 4/10 pain and that her current pain regimen was controlling her pain well. The patient is currently lying in bed watching TV.
--- NOTE | 2021-08-25 04:47 | NUR ---
SHIFT SUMMARY- SUTURES IN PLACE FROM BIOPSY TAKEN FROM TAILBONE ULCER. GAUZE REMOVED FROM WOUND SITE, SMALL AMOUNT OF BLOOD DRAINAGE NOTED. AREA CLEANSED WITH WATER AND LEFT OPEN TO AIR PER PT. REQUEST. MEDICATED FOR PAIN 2X THIS SHIFT, REPORTED GOOD RELIEF. PT. STARTED MENSES LAST NIGHT, PULL UP ON. PT. INDEP IN ROOM, DENIED ANY OTHER NEEDS T/O THE NIGHT. SLEPT ON/OFF DURING THE NIGHT, NO APPARENT DISTRESS NOTED. CALL LIGHT WITHIN REACH AND SIDE RAILS UPX2. WILL CONT TO MONITOR.
[2021-08-25 05:19] LABS: BASOPHILS ABSOLUTE AUTO 0.06 K/mm3 (0.00-0.23); BASOPHILS PERCENT AUTO 1 % (0-2); EOSINOPHILS ABSOLUTE AUTO 0.29 K/mm3 (0.00-0.68); EOSINOPHILS PERCENT AUTO 4 % (0-6); Hematocrit 32.4 % (33.0-51.0); IMMATURE GRAN ABSOLUTE AUTO 0.08 K/mm3 (0.00-0.10); IMMATURE GRAN PERCENT AUTO 1 % (0-1); LYMPHOCYTES ABSOLUTE AUTO 1.93 K/mm3 (0.84-5.20); LYMPHOCYTES PERCENT AUTO 24 % (21-46); MONOCYTES ABSOLUTE AUTO 0.78 K/mm3 (0.16-1.47); MONOCYTES PERCENT AUTO 10 % (4-13); Mean Corpuscular HGB 24.4 pg (26.0-34.0); Mean Corpuscular HGB Conc 30.9 g/dL (31.5-36.5); Mean Corpuscular Volume 79 fL (80-100); Mean Platelet Volume 8.7 fL (9.1-12.4); NEUTROPHILS ABSOLUTE AUTO 4.99 K/mm3 (1.96-9.15); NEUTROPHILS PERCENT AUTO 61 % (41-73); Platelet Count 359 K/mm3 (150-400); RDW Coefficient Variation 19.6 % (11.7-14.2); Red Blood Cell Count 4.09 M/mm3 (3.80-5.20); White Blood Cell Count 8.13 K/mm3 (4.00-11.30)
[2021-08-25 05:45] LABS: Alanine Aminotransfer (ALT/SGP 25 U/L (12-78); Albumin, Blood 2.3 g/dL (3.4-5.0); Albumin/Globulin Ratio 0.5 (0.8-1.8); Alk Phos 73 U/L (50-136); Anion Gap 4 mmol/L (6-16); Aspartate Aminotrans (AST/SGOT 19 U/L (12-37); Bilirubin, Total 0.2 mg/dL (0.1-1.0); Blood Urea Nitrogen 12 mg/dL (8-24); Bun/Creatinine Ratio 12.9 (12.0-20.0); CO2, Blood 28 mmol/L (21-32); Calcium, Blood 8.7 mg/dL (8.5-10.1); Chloride, Blood 108 mmol/L (98-108); Creatinine, Blood 0.93 mg/dL (0.40-1.00); Globulin, Blood 4.6 g/dL (2.2-4.0); Glomerular Filtration Rate >60 (60-); Glucose, Blood 101 mg/dL (70-99); Potassium, Blood 3.9 mmol/L (3.5-5.5); Sodium, Blood 140 mmol/L (136-145); Total Protein, Blood 6.9 g/dL (6.4-8.2); Vancomycin, Trough 13.7 ug/mL (5.0-10.0)
[2021-08-25 09:40] LABS: Hematocrit 37.5 % (33.0-51.0); Hemoglobin 11.1 g/dL (11.5-16.0); Mean Corpuscular HGB 24.2 pg (26.0-34.0); Mean Corpuscular HGB Conc 29.6 g/dL (31.5-36.5); Mean Corpuscular Volume 82 fL (80-100); Mean Platelet Volume 9.1 fL (9.1-12.4); Platelet Count 383 K/mm3 (150-400); RDW Coefficient Variation 19.9 % (11.7-14.2); RDW Standard Deviation 58.8 fL (35.1-46.3); Red Blood Cell Count 4.58 M/mm3 (3.80-5.20); White Blood Cell Count 10.04 K/mm3 (4.00-11.30)
[2021-08-25 10:39] LABS: BAND PERCENT MAN 3 % (0-8); BASOPHILS PERCENT MAN 0 % (0-2); EOSINOPHILS PERCENT MAN 2 % (0-6); LYMPHOCYTES % ATYPICAL MANUAL 1 % (0-0); LYMPHOCYTES ABSOLUTE MAN 2.91 K/mm3 (0.84-5.20); LYMPHOCYTES PERCENT MAN 28 % (21-46); MONOCYTES PERCENT MAN 3 % (4-13); MYELOCYTE PERCENT MAN 1 % (0-0); NEUTROPHILS ABSOLUTE MAN 6.52 K/mm3 (1.96-9.15); SEG NEUTROPHILS PERCENT MAN 62 % (41-73); TOTAL CELLS COUNTED 100
--- NOTE | 2021-08-25 19:46 | NUR ---
BAGLEY PLACED [id number]
--- NOTE | 2021-08-25 19:52 | NUR ---
WOUND CARE- RN ASSESSED AND CLEANSED WOUNDS- DEEP SKIN SPLITS UNDER L BREAST, DEEP SPLITS UNDER PANUS AND BILAT GROIN, MACERATED WITH SKIN SLOUGHING. VERY PAINFUL TO CLEANSE. DEEP OPEN ULCERATION IN GLUT CREASE APPROX 5X3CM 0.[address] TO [address] DEL VALLE, ORDER FOR DILAUDID PRE DRESSING CHANGE. ALSO SILVIDENE ORDERED IN IMPREGNATED GAUZE TO GO OVER SKIN SPLITS. TO BE CHANGED BID. PT TOLERATED DRESSING CLEANSE AND CHANGE WELL AFTER DILAUDID ON BOARD WITH OXYCODONE ONE HOUR PRIOR. CAMERA AND PRINGING PROCESS NOT FUNCTIONING PROPERLY BUT PRINTED OUT ON PAPER WHAT WAS AVAILABLE.
--- NOTE | 2021-08-25 20:02 | NUR ---
SUMMARY- PT ALERT AND ORIENTED. GETS UP TO BEDSIDE COMMODE TO VOID. PAIN CONTROLLED WITH OXYCODONE. NEW WOUND CARE ORDERS RECEIVED THIS AND SILVIDENE SATURATED GAUZE APPLIED TO ALL OPEN SKIN SPLITS L BREAST, GROIN AND GLUT CREASE. STARTED BAGLEY TO ALLOW FOR WOUND HEALING, TO KEEP AREA CLEAN AND DRY AND THAT PT DOESNT HAVE TO TAKE ATTENDS OFF AND ON THAT ARE HOLDING DRESSINGS IN PLACE. OXYCODONE EFFECTIVE FOR PAIN RELEIF AND DILAUDID BEFORE DRESSING CHANGE.
[2021-08-25 20:32] LABS: Source, Urine Catheter
[2021-08-25 20:34] LABS: Bilirubin, Urine Neg (Neg); Blood, Urine Neg (Neg); Glucose Qualitative, Urine Neg (Neg); Ketones, Urine Neg (Neg); Leukocyte Esterase, Urine 1+ (Neg); Nitrite, Urine Neg (Neg); Protein, Urine Neg (Neg); Urobilinogen, Urine NORM (Normal)
[2021-08-25 20:41] LABS: Appearance, Urine Clear (Clear); Color, Urine Yellow (P-Yellow)
[2021-08-25 20:42] LABS: Bacteria Mod /hpf; Hyaline Casts Rare /lpf (0-2); Red Blood Cells, Urine Not Seen /hpf (0-2); Squamous Epithelial Cells Rare /hpf (Few); White Blood Cells, Urine Rare /hpf (0-5)
[2021-08-26 05:54] LABS: BASOPHILS ABSOLUTE AUTO 0.06 K/mm3 (0.00-0.23); BASOPHILS PERCENT AUTO 1 % (0-2); EOSINOPHILS ABSOLUTE AUTO 0.25 K/mm3 (0.00-0.68); EOSINOPHILS PERCENT AUTO 3 % (0-6); Hematocrit 32.6 % (33.0-51.0); Hemoglobin 10.1 g/dL (11.5-16.0); IMMATURE GRAN ABSOLUTE AUTO 0.07 K/mm3 (0.00-0.10); IMMATURE GRAN PERCENT AUTO 1 % (0-1); LYMPHOCYTES ABSOLUTE AUTO 1.82 K/mm3 (0.84-5.20); LYMPHOCYTES PERCENT AUTO 23 % (21-46); MONOCYTES ABSOLUTE AUTO 0.72 K/mm3 (0.16-1.47); MONOCYTES PERCENT AUTO 9 % (4-13); Mean Corpuscular HGB 24.9 pg (26.0-34.0); Mean Corpuscular Volume 81 fL (80-100); Mean Platelet Volume 8.6 fL (9.1-12.4); NEUTROPHILS ABSOLUTE AUTO 5.11 K/mm3 (1.96-9.15); NEUTROPHILS PERCENT AUTO 64 % (41-73); Platelet Count 390 K/mm3 (150-400); RDW Coefficient Variation 19.9 % (11.7-14.2); RDW Standard Deviation 57.5 fL (35.1-46.3); Red Blood Cell Count 4.05 M/mm3 (3.80-5.20); White Blood Cell Count 8.03 K/mm3 (4.00-11.30)
[2021-08-26 06:17] LABS: Albumin, Blood 2.3 g/dL (3.4-5.0); Anion Gap 5 mmol/L (6-16); Blood Urea Nitrogen 11 mg/dL (8-24); Bun/Creatinine Ratio 10.6 (12.0-20.0); CO2, Blood 28 mmol/L (21-32); Calcium, Blood 8.7 mg/dL (8.5-10.1); Chloride, Blood 106 mmol/L (98-108); Creatinine, Blood 1.04 mg/dL (0.40-1.00); Glomerular Filtration Rate 57 (60-); Glucose, Blood 76 mg/dL (70-99); Phosphorus, Blood 3.6 mg/dL (2.5-4.9); Potassium, Blood 3.8 mmol/L (3.5-5.5); Sodium, Blood 139 mmol/L (136-145)
--- NOTE | 2021-08-26 07:44 | NUR ---
SHIFT SUMMARY PATIENT ALERT AND ORIENTED. MEDICATED PER EMAR FOR PAIN. NO COMPLAINTS OF SHORTNESS OF BREATH. NO ACUTE ISSUES NOTED OVERNIGHT. CALL LIGHT WITHIN REACH. REPORT GIVEN TO ONCOMING RN.
--- NOTE | 2021-08-26 20:16 | NUR ---
SUMM- PT A/O X4, MOSTLY BEDREST TOO MUCH PAIN IN BACK END FOR A CHAIR. ABLE TO AMBULATE TO THE BATHROOM. NO BM SINCE 08/21, GIVEN [place] THIS PM, PASSING GAS AND TOLERATING A GEN DIET. PAIN CONTROLLED WITH OXYCODONE Q4-5 HRS. DILAUDID GIVEN BEFORE DRESSING CHANGE THIS AM ABOUT 1100. CLEANSED WITH WARM WATER, GAUZE STRIPS COATED WITH SILVIDENT STRUNG ALONG OPEN SORES UNDER BREASTS AND GORON AND COCCYX. DR DEL VALLE AT BEDSIDE THIS AM STATES PLAN FOR PT TO STAY ONE OR 2 MORE DAYS WITH ABX AND DRESSING CHANGES AND DC HOME WITH [facility] AND [facility]T [place] 09/02
[2021-08-27 05:18] LABS: BASOPHILS ABSOLUTE AUTO 0.05 K/mm3 (0.00-0.23); BASOPHILS PERCENT AUTO 1 % (0-2); EOSINOPHILS ABSOLUTE AUTO 0.27 K/mm3 (0.00-0.68); EOSINOPHILS PERCENT AUTO 4 % (0-6); Hematocrit 34.4 % (33.0-51.0); Hemoglobin 10.6 g/dL (11.5-16.0); IMMATURE GRAN ABSOLUTE AUTO 0.06 K/mm3 (0.00-0.10); IMMATURE GRAN PERCENT AUTO 1 % (0-1); LYMPHOCYTES PERCENT AUTO 24 % (21-46); MONOCYTES ABSOLUTE AUTO 0.65 K/mm3 (0.16-1.47); MONOCYTES PERCENT AUTO 9 % (4-13); Mean Corpuscular HGB 24.5 pg (26.0-34.0); Mean Corpuscular HGB Conc 30.8 g/dL (31.5-36.5); Mean Corpuscular Volume 79 fL (80-100); Mean Platelet Volume 8.9 fL (9.1-12.4); NEUTROPHILS ABSOLUTE AUTO 4.58 K/mm3 (1.96-9.15); NEUTROPHILS PERCENT AUTO 62 % (41-73); Platelet Count 399 K/mm3 (150-400); RDW Coefficient Variation 19.5 % (11.7-14.2); RDW Standard Deviation 56.6 fL (35.1-46.3); Red Blood Cell Count 4.33 M/mm3 (3.80-5.20); White Blood Cell Count 7.41 K/mm3 (4.00-11.30)
[2021-08-27 05:53] LABS: Alanine Aminotransfer (ALT/SGP 28 U/L (12-78); Albumin, Blood 2.5 g/dL (3.4-5.0); Albumin/Globulin Ratio 0.5 (0.8-1.8); Alk Phos 74 U/L (50-136); Anion Gap 5 mmol/L (6-16); Aspartate Aminotrans (AST/SGOT 31 U/L (12-37); Bilirubin, Total 0.3 mg/dL (0.1-1.0); Blood Urea Nitrogen 11 mg/dL (8-24); CO2, Blood 27 mmol/L (21-32); Calcium, Blood 8.9 mg/dL (8.5-10.1); Chloride, Blood 106 mmol/L (98-108); Creatinine, Blood 0.92 mg/dL (0.40-1.00); Globulin, Blood 4.7 g/dL (2.2-4.0); Glomerular Filtration Rate >60 (60-); Glucose, Blood 115 mg/dL (70-99); Potassium, Blood 3.9 mmol/L (3.5-5.5); Sodium, Blood 138 mmol/L (136-145); Total Protein, Blood 7.2 g/dL (6.4-8.2)
--- NOTE | 2021-08-27 06:07 | NUR ---
PATIENT SUMMARY pATIENT IS ALERT AND ORIENTED X4. VS STABLE FOR PATIENT ON RA. NO COMPLAINTS OF CHEST PAIN OR SHORTNESS OF BREATH. DRESSING CHANGE COMPLETED ORDERED. NO EVENTS OVERNIGHT. CARES AND MEDICATIONS COMPLETED AND GIVEN ORDERED ACCORDING TO NURSING JUDGEMENT. ALL UNFINISHED CARES ENDORSED TO ONCOMING RN.
[2021-08-27 10:09] LABS: A/G RATIO 0.8 (0.7-1.7); ALBUMIN 3.1 g/dL (2.9-4.4); ALPHA-1-GLOBULIN 0.4 g/dL (0.0-0.4); ALPHA-2-GLOBULIN 1.1 g/dL (0.4-1.0); BETA GLOBULIN 1.1 g/dL (0.7-1.3); GAMMA GLOBULIN 1.4 g/dL (0.4-1.8); GLOBULIN, TOTAL 3.9 g/dL (2.2-3.9); M-SPIKE Not Observed g/dL (Not Observed)
--- NOTE | 2021-08-27 18:11 | NUR ---
PT AO X 4,PT BAGLEY IS STILL INTACT, PT MEDICATED BEFORE WOUND DRESSING CHANGE,PT ASSESSMENT REMAINS UNCHANGED,PT IN BED RESTING,CALL LIGHT WITHIN REACH WILL CONTINUE TO MONITOR.
--- NOTE | 2021-08-28 07:35 | NUR ---
[facility] DIRECTOR SUMMARY ADMITTED FOR [facility]. PT IS FULL CODE. PT MEDICATED FOR PAIN X3. RECEIVED IV ABX. DRESSINGS CHANGED AND SILVADENE APPLIED. NO OTHER CONCERNS THIS SHIFT.
[2021-08-28] MEDS ORDERED: CEFP200 PO (10:03)
[2021-08-28] MEDS ORDERED: DOCU100 PO (10:03)
[2021-08-28] MEDS ORDERED: Colace100 MG PO (10:04)
[2021-08-28] MEDS ORDERED: Ativan1 MG PO (10:04)
[2021-08-28] MEDS ORDERED: SENN187 PO (10:05)
[2021-08-28] MEDS ORDERED: METR500 PO (10:05)
[2021-08-28] MEDS ORDERED: SILVADENE TOP (10:06)
[2021-08-28] MEDS ORDERED: LACT PO (10:11)
[2021-08-28] MEDS ORDERED: OXYC10TA19 PO (10:14)
--- NOTE | 2021-08-28 12:58 | NUR ---
PT AO X 4,PT ASSESSMENT REMAINS UNCHANGED,NO ACUTES CHANGES DURING MONRNING SHIFT AND PT IS DISCHARGE HOME WILL ALL BELONGINGS.
== END 2021-08-28 15:49 | disposition home or self-care (01) | DRG 872 ==
LOC: ER 11:14 → MEDS 16:50
PROVIDERS: Emergency Medicine; Family Medicine; ADMIT Hospitalist
PROC: 0HB8XZX Excision of Buttock Skin, External Approach, Diagnostic (ICD-10-PCS; principal; 2021-08-24)
DX: A41.9 Sepsis, unspecified organism (principal); K50.918 Crohn's disease, unspecified, with other complication; Z68.41 Body mass index [BMI] 40.0-44.9, adult; L88 Pyoderma gangrenosum; L03.317 Cellulitis of buttock; L03.314 Cellulitis of groin; L03.315 Cellulitis of perineum; N61.0 Mastitis without abscess; E11.9 Type 2 diabetes mellitus without complications; E03.9 Hypothyroidism, unspecified; I10 Essential (primary) hypertension; D63.8 Anemia in other chronic diseases classified elsewhere; J45.909 Unspecified asthma, uncomplicated; E66.01 Morbid (severe) obesity due to excess calories; K21.9 Gastro-esophageal reflux disease without esophagitis; F41.8 Other specified anxiety disorders; Z90.89 Acquired absence of other organs; Z90.49 Acquired absence of other specified parts of digestive tract; Z88.8 Allergy status to other drugs, medicaments and biological substances; Z79.4 Long term (current) use of insulin; Z79.899 Other long term (current) drug therapy
CPT/HCPCS: 36415; 71260; 80048; 80053; 80069; 80202; 81001; 82164; 82565; 82947; 84165; 85007; 85025; 85027; 85651; 86140; 87040; 87086; 88305; 93005; 93010; 93306; 96365; 96366; 96375; 99284-25; A9270; J0696; J1170; J1650; J3370; J7050; Q9967

== ENCOUNTER → 2021-10-28 | Outpatient (CLI) | payer OTHER ==
[~2021-10-28] MED LIST changes: +Ativan1 MG PO; +BUPR150ER PO; +CEFP200 PO; +Colace100 MG PO; +DOCU100 PO; +EFFEXOR XR150 MG PO; +FAMO20 PO; +GLYBURIDE5 M2 PO; +LOSARTAN POTAS100 M1 PO; +MONT10T PO; +OXYC10TA19 PO; +ROXICODONE5 MG PO; +SILVADENE TOP; +SITA100T2 PO; +Synthroid/Levo0.2 MG PO; +Triamcinolone A15 G3 TOP
== END ==
LOC: LAB 15:31 → LAB SHORT 15:31
DX: L08.0 Pyoderma (principal); Z88.8 Allergy status to other drugs, medicaments and biological substances
CPT/HCPCS: 87070; 87077; 87147; 87186; 87205

== ENCOUNTER → 2021-11-12 | Outpatient (CLI) | payer OTHER | END | disposition home or self-care (01) | LOC: LAB 14:40 → LAB SHORT 14:40 | DX: L08.0 Pyoderma (principal) | CPT/HCPCS: 87070; 87077; 87186; 87205 ==

== ENCOUNTER 2021-12-16 05:42 | Day surgery (SDC) | payer OTHER ==
[~2021-12-16 05:42] MED LIST changes: +CEFDINIR300 M4 PO; +KLONOPIN PO
[2021-12-16 09:12] LABS: BASOPHILS ABSOLUTE AUTO 0.05 K/mm3 (0.00-0.23); BASOPHILS PERCENT AUTO 1 % (0-2); EOSINOPHILS ABSOLUTE AUTO 0.14 K/mm3 (0.00-0.68); EOSINOPHILS PERCENT AUTO 2 % (0-6); Hematocrit 41.6 % (33.0-51.0); IMMATURE GRAN ABSOLUTE AUTO 0.06 K/mm3 (0.00-0.10); IMMATURE GRAN PERCENT AUTO 1 % (0-1); LYMPHOCYTES ABSOLUTE AUTO 2.52 K/mm3 (0.84-5.20); LYMPHOCYTES PERCENT AUTO 32 % (21-46); MONOCYTES ABSOLUTE AUTO 0.53 K/mm3 (0.16-1.47); MONOCYTES PERCENT AUTO 7 % (4-13); Mean Corpuscular HGB 26.6 pg (26.0-34.0); Mean Corpuscular HGB Conc 31.3 g/dL (31.5-36.5); Mean Corpuscular Volume 85 fL (80-100); Mean Platelet Volume 9.4 fL (9.1-12.4); NEUTROPHILS ABSOLUTE AUTO 4.69 K/mm3 (1.96-9.15); NEUTROPHILS PERCENT AUTO 59 % (41-73); Platelet Count 404 K/mm3 (150-400); RDW Coefficient Variation 14.6 % (11.7-14.2); RDW Standard Deviation 45.7 fL (35.1-46.3); Red Blood Cell Count 4.89 M/mm3 (3.80-5.20); White Blood Cell Count 7.99 K/mm3 (4.00-11.30)
[2021-12-16 09:27] LABS: Alanine Aminotransfer (ALT/SGP 24 U/L (12-78); Albumin, Blood 3.3 g/dL (3.4-5.0); Albumin/Globulin Ratio 0.8 (0.8-1.8); Alk Phos 75 U/L (50-136); Anion Gap 8 mmol/L (6-16); Aspartate Aminotrans (AST/SGOT 28 U/L (12-37); Bilirubin, Total 0.2 mg/dL (0.1-1.0); Blood Urea Nitrogen 17 mg/dL (8-24); Bun/Creatinine Ratio 19.6 (12.0-20.0); CO2, Blood 25 mmol/L (21-32); Calcium, Blood 8.5 mg/dL (8.5-10.1); Chloride, Blood 107 mmol/L (98-108); Creatinine, Blood 0.87 mg/dL (0.40-1.00); Globulin, Blood 4.1 g/dL (2.2-4.0); Glomerular Filtration Rate >60 (60-); Glucose, Blood 227 mg/dL (70-99); Potassium, Blood 4.9 mmol/L (3.5-5.5); Sodium, Blood 140 mmol/L (136-145); Total Protein, Blood 7.4 g/dL (6.4-8.2)
== END 2021-12-16 11:05 | disposition home or self-care (01) ==
LOC: ATC 05:42
PROVIDERS: Dermatology
DX: K50.90 Crohn's disease, unspecified, without complications (principal)
CPT/HCPCS: 80053; 85025; 96413; 96415; J7040; Q5103

== ENCOUNTER 2022-01-13 04:22 | Day surgery (SDC) | payer OTHER ==
[2022-01-13 08:42] LABS: BASOPHILS ABSOLUTE AUTO 0.06 K/mm3 (0.00-0.23); BASOPHILS PERCENT AUTO 1 % (0-2); EOSINOPHILS ABSOLUTE AUTO 0.22 K/mm3 (0.00-0.68); EOSINOPHILS PERCENT AUTO 2 % (0-6); Hematocrit 40.2 % (33.0-51.0); Hemoglobin 12.8 g/dL (11.5-16.0); IMMATURE GRAN ABSOLUTE AUTO 0.15 K/mm3 (0.00-0.10); IMMATURE GRAN PERCENT AUTO 2 % (0-1); LYMPHOCYTES ABSOLUTE AUTO 3.71 K/mm3 (0.84-5.20); LYMPHOCYTES PERCENT AUTO 39 % (21-46); MONOCYTES ABSOLUTE AUTO 0.57 K/mm3 (0.16-1.47); MONOCYTES PERCENT AUTO 6 % (4-13); Mean Corpuscular HGB 26.9 pg (26.0-34.0); Mean Corpuscular HGB Conc 31.8 g/dL (31.5-36.5); Mean Corpuscular Volume 85 fL (80-100); NEUTROPHILS ABSOLUTE AUTO 4.78 K/mm3 (1.96-9.15); NEUTROPHILS PERCENT AUTO 50 % (41-73); Platelet Count 395 K/mm3 (150-400); RDW Coefficient Variation 14.4 % (11.7-14.2); RDW Standard Deviation 44.2 fL (35.1-46.3); Red Blood Cell Count 4.75 M/mm3 (3.80-5.20); White Blood Cell Count 9.49 K/mm3 (4.00-11.30)
[2022-01-13 09:04] LABS: Alanine Aminotransfer (ALT/SGP 21 U/L (12-78); Albumin, Blood 3.1 g/dL (3.4-5.0); Albumin/Globulin Ratio 0.9 (0.8-1.8); Alk Phos 78 U/L (50-136); Anion Gap 7 mmol/L (6-16); Aspartate Aminotrans (AST/SGOT 11 U/L (12-37); Bilirubin, Total 0.2 mg/dL (0.1-1.0); Blood Urea Nitrogen 17 mg/dL (8-24); Bun/Creatinine Ratio 20.6 (12.0-20.0); CO2, Blood 28 mmol/L (21-32); Calcium, Blood 8.4 mg/dL (8.5-10.1); Chloride, Blood 106 mmol/L (98-108); Creatinine, Blood 0.83 mg/dL (0.40-1.00); Globulin, Blood 3.6 g/dL (2.2-4.0); Glomerular Filtration Rate >60 (60-); Glucose, Blood 184 mg/dL (70-99); Sodium, Blood 141 mmol/L (136-145); Total Protein, Blood 6.7 g/dL (6.4-8.2)
== END 2022-01-13 10:52 | disposition home or self-care (01) ==
LOC: ATC 04:22
PROVIDERS: Dermatology
DX: K50.90 Crohn's disease, unspecified, without complications (principal); I10 Essential (primary) hypertension; E11.9 Type 2 diabetes mellitus without complications
CPT/HCPCS: 80053; 85025; J7040; Q5103

== ENCOUNTER 2022-03-10 00:57 | Day surgery (SDC) | payer OTHER ==
[2022-03-10 10:40] LABS: BASOPHILS ABSOLUTE AUTO 0.11 K/mm3 (0.00-0.23); BASOPHILS PERCENT AUTO 1 % (0-2); EOSINOPHILS ABSOLUTE AUTO 0.32 K/mm3 (0.00-0.68); EOSINOPHILS PERCENT AUTO 3 % (0-6); Hematocrit 42.3 % (33.0-51.0); Hemoglobin 13.8 g/dL (11.5-16.0); IMMATURE GRAN ABSOLUTE AUTO 0.33 K/mm3 (0.00-0.10); IMMATURE GRAN PERCENT AUTO 3 % (0-1); LYMPHOCYTES ABSOLUTE AUTO 2.74 K/mm3 (0.84-5.20); LYMPHOCYTES PERCENT AUTO 22 % (21-46); MONOCYTES ABSOLUTE AUTO 0.86 K/mm3 (0.16-1.47); MONOCYTES PERCENT AUTO 7 % (4-13); Mean Corpuscular HGB 27.8 pg (26.0-34.0); Mean Corpuscular HGB Conc 32.6 g/dL (31.5-36.5); Mean Corpuscular Volume 85 fL (80-100); Mean Platelet Volume 9.3 fL (9.1-12.4); NEUTROPHILS ABSOLUTE AUTO 8.18 K/mm3 (1.96-9.15); NEUTROPHILS PERCENT AUTO 65 % (41-73); Platelet Count 442 K/mm3 (150-400); RDW Coefficient Variation 13.9 % (11.7-14.2); RDW Standard Deviation 42.8 fL (35.1-46.3); Red Blood Cell Count 4.97 M/mm3 (3.80-5.20); White Blood Cell Count 12.54 K/mm3 (4.00-11.30)
[2022-03-10 11:18] LABS: Alanine Aminotransfer (ALT/SGP 35 U/L (12-78); Albumin, Blood 3.1 g/dL (3.4-5.0); Albumin/Globulin Ratio 0.6 (0.8-1.8); Alk Phos 81 U/L (50-136); Anion Gap 8 mmol/L (6-16); Aspartate Aminotrans (AST/SGOT 20 U/L (12-37); Bilirubin, Total 0.4 mg/dL (0.1-1.0); Blood Urea Nitrogen 27 mg/dL (8-24); Bun/Creatinine Ratio 32.4 (12.0-20.0); CO2, Blood 24 mmol/L (21-32); Calcium, Blood 8.7 mg/dL (8.5-10.1); Chloride, Blood 105 mmol/L (98-108); Creatinine, Blood 0.83 mg/dL (0.40-1.00); Globulin, Blood 4.8 g/dL (2.2-4.0); Glomerular Filtration Rate >60 (60-); Glucose, Blood 290 mg/dL (70-99); Potassium, Blood 4.5 mmol/L (3.5-5.5); Sodium, Blood 137 mmol/L (136-145); Total Protein, Blood 7.9 g/dL (6.4-8.2)
--- NOTE | 2022-03-10 12:03 | NUR ---
THIS STUDENT NURSE OBTAINED PERMISSION TO ASSIST AND OBSERVE HER CARE ON 03/10/22. I ATTEMPTED 2 IVS UNDER THE SUPERVISION OF VALERIE MCKENNA AND DEBO ELLISON. I OBTAINED AND CHARTED PT'S VITALS.
== END 2022-03-10 12:51 | disposition home or self-care (01) ==
LOC: ATC 00:57
PROVIDERS: Dermatology
DX: K50.90 Crohn's disease, unspecified, without complications (principal); E11.9 Type 2 diabetes mellitus without complications; I10 Essential (primary) hypertension; Z88.8 Allergy status to other drugs, medicaments and biological substances
CPT/HCPCS: 80053; 85025; J7040; Q5103

== ENCOUNTER → 2022-04-13 | Outpatient (CLI) | payer OTHER | END | disposition home or self-care (01) | LOC: LAB 12:46 → LAB SHORT 12:46 | DX: L08.0 Pyoderma (principal) | CPT/HCPCS: 87070; 87205 ==

== ENCOUNTER 2022-04-21 08:30 | Day surgery (SDC) | payer OTHER ==
[~2022-04-21] VITALS: Wt 123.6 kg
[2022-04-21] MEDS ORDERED: Prednisone10 MG PO (09:29)
[2022-04-21] MEDS ORDERED: GLIP10 PO (09:30)
[2022-04-21 10:04] LABS: Hematocrit 40.6 % (33.0-51.0); Hemoglobin 13.4 g/dL (11.5-16.0); Mean Corpuscular HGB 27.7 pg (26.0-34.0); Mean Corpuscular Volume 84 fL (80-100); Mean Platelet Volume 8.9 fL (9.1-12.4); Platelet Count 395 K/mm3 (150-400); RDW Coefficient Variation 13.7 % (11.7-14.2); RDW Standard Deviation 42.7 fL (35.1-46.3); Red Blood Cell Count 4.83 M/mm3 (3.80-5.20); White Blood Cell Count 15.91 K/mm3 (4.00-11.30)
[2022-04-21 10:22] LABS: Albumin, Blood 3.1 g/dL (3.4-5.0); Albumin/Globulin Ratio 0.8 (0.8-1.8); Bilirubin, Total 0.2 mg/dL (0.1-1.0); Bun/Creatinine Ratio 36.7 (12.0-20.0); Calcium, Blood 8.4 mg/dL (8.5-10.1); Creatinine, Blood 0.71 mg/dL (0.40-1.00); Globulin, Blood 3.9 g/dL (2.2-4.0); Potassium, Blood 3.3 mmol/L (3.5-5.5)
[2022-04-21 10:25] LABS: BASOPHILS PERCENT MAN 0 % (0-2); EOSINOPHILS PERCENT MAN 0 % (0-6); LYMPHOCYTES ABSOLUTE MAN 5.88 K/mm3 (0.84-5.20); LYMPHOCYTES PERCENT MAN 37 % (21-46); MONOCYTES ABSOLUTE MAN 0.47 K/mm3 (0.16-1.47); MONOCYTES PERCENT MAN 3 % (4-13); NEUTROPHILS ABSOLUTE MAN 9.54 K/mm3 (1.96-9.15); SEG NEUTROPHILS PERCENT MAN 60 % (41-73); TOTAL CELLS COUNTED 100
== END 2022-04-21 12:14 | disposition home or self-care (01) ==
LOC: ATC 08:30
PROVIDERS: Dermatology
DX: K50.90 Crohn's disease, unspecified, without complications (principal)
CPT/HCPCS: 80053; 85025; 96413; 96415; J7040; Q5103

== ENCOUNTER 2022-07-14 00:37 | Day surgery (SDC) | payer OTHER ==
[~2022-07-14] VITALS: Wt 126.0 kg
[~2022-07-14 00:37] MED LIST changes: +INSULANI SC; +Prednisone10 MG PO
[2022-07-14] MEDS ORDERED: VIIBRYD10 MG PO (08:19)
[2022-07-14 08:44] LABS: BASOPHILS ABSOLUTE AUTO 0.03 K/mm3 (0.00-0.23); BASOPHILS PERCENT AUTO 0 % (0-2); EOSINOPHILS ABSOLUTE AUTO 0.27 K/mm3 (0.00-0.68); EOSINOPHILS PERCENT AUTO 3 % (0-6); Hematocrit 38.7 % (33.0-51.0); Hemoglobin 12.4 g/dL (11.5-16.0); IMMATURE GRAN ABSOLUTE AUTO 0.17 K/mm3 (0.00-0.10); IMMATURE GRAN PERCENT AUTO 2 % (0-1); LYMPHOCYTES ABSOLUTE AUTO 2.35 K/mm3 (0.84-5.20); LYMPHOCYTES PERCENT AUTO 25 % (21-46); MONOCYTES PERCENT AUTO 6 % (4-13); Mean Corpuscular Volume 84 fL (80-100); Mean Platelet Volume 9.4 fL (9.1-12.4); NEUTROPHILS ABSOLUTE AUTO 5.92 K/mm3 (1.96-9.15); NEUTROPHILS PERCENT AUTO 63 % (41-73); Platelet Count 358 K/mm3 (150-400); RDW Coefficient Variation 13.2 % (11.7-14.2); RDW Standard Deviation 40.1 fL (35.1-46.3); Red Blood Cell Count 4.59 M/mm3 (3.80-5.20); White Blood Cell Count 9.34 K/mm3 (4.00-11.30)
[2022-07-14 09:03] LABS: Albumin, Blood 2.9 g/dL (3.4-5.0); Albumin/Globulin Ratio 0.7 (0.8-1.8); Bilirubin, Total 0.2 mg/dL (0.1-1.0); Bun/Creatinine Ratio 21.1 (12.0-20.0); Calcium, Blood 8.3 mg/dL (8.5-10.1); Creatinine, Blood 0.62 mg/dL (0.40-1.00); Potassium, Blood 4.1 mmol/L (3.5-5.5); Total Protein, Blood 6.9 g/dL (6.4-8.2)
== END 2022-07-14 10:55 | disposition home or self-care (01) ==
LOC: ATC 00:37
PROVIDERS: Dermatology
DX: K50.90 Crohn's disease, unspecified, without complications (principal); E11.9 Type 2 diabetes mellitus without complications; Z88.8 Allergy status to other drugs, medicaments and biological substances
CPT/HCPCS: 36415; 80053; 85025; 96413; 96415; J7040; Q5103

== ENCOUNTER 2022-10-06 04:21 | Day surgery (SDC) | payer OTHER ==
[~2022-10-06 04:21] MED LIST changes: +VIIBRYD10 MG PO
[2022-10-06 10:00] LABS: BASOPHILS ABSOLUTE AUTO 0.09 K/mm3 (0.00-0.23); BASOPHILS PERCENT AUTO 1 % (0-2); EOSINOPHILS ABSOLUTE AUTO 0.23 K/mm3 (0.00-0.68); EOSINOPHILS PERCENT AUTO 3 % (0-6); Hemoglobin 13.4 g/dL (11.5-16.0); IMMATURE GRAN ABSOLUTE AUTO 0.18 K/mm3 (0.00-0.10); IMMATURE GRAN PERCENT AUTO 2 % (0-1); LYMPHOCYTES ABSOLUTE AUTO 2.69 K/mm3 (0.84-5.20); LYMPHOCYTES PERCENT AUTO 29 % (21-46); MONOCYTES ABSOLUTE AUTO 0.61 K/mm3 (0.16-1.47); MONOCYTES PERCENT AUTO 7 % (4-13); Mean Corpuscular HGB 26.8 pg (26.0-34.0); Mean Corpuscular HGB Conc 32.7 g/dL (31.5-36.5); Mean Corpuscular Volume 82 fL (80-100); Mean Platelet Volume 9.8 fL (9.1-12.4); NEUTROPHILS ABSOLUTE AUTO 5.58 K/mm3 (1.96-9.15); NEUTROPHILS PERCENT AUTO 59 % (41-73); Platelet Count 346 K/mm3 (150-400); RDW Coefficient Variation 14.1 % (11.7-14.2); RDW Standard Deviation 41.3 fL (35.1-46.3); White Blood Cell Count 9.38 K/mm3 (4.00-11.30)
[2022-10-06 10:18] LABS: Albumin/Globulin Ratio 0.6 (0.8-1.8); Bilirubin, Total 0.3 mg/dL (0.1-1.0); Bun/Creatinine Ratio 30.3 (12.0-20.0); Calcium, Blood 9.1 mg/dL (8.5-10.1); Creatinine, Blood 0.53 mg/dL (0.40-1.00); Globulin, Blood 4.7 g/dL (2.2-4.0); Potassium, Blood 4.8 mmol/L (3.5-5.5); Total Protein, Blood 7.7 g/dL (6.4-8.2)
== END 2022-10-06 11:58 | disposition home or self-care (01) ==
LOC: ATC 04:21
PROVIDERS: Dermatology
DX: K50.90 Crohn's disease, unspecified, without complications (principal); E11.9 Type 2 diabetes mellitus without complications; I10 Essential (primary) hypertension; Z79.4 Long term (current) use of insulin; E07.9 Disorder of thyroid, unspecified; Z88.8 Allergy status to other drugs, medicaments and biological substances
CPT/HCPCS: 80053; 85025; J7040; Q5103

== ENCOUNTER 2022-11-17 01:55 | Day surgery (SDC) | payer OTHER ==
[2022-11-17 10:11] LABS: BASOPHILS PERCENT AUTO 1 % (0-2); EOSINOPHILS ABSOLUTE AUTO 0.21 K/mm3 (0.00-0.68); EOSINOPHILS PERCENT AUTO 2 % (0-6); Hematocrit 38.6 % (33.0-51.0); Hemoglobin 12.5 g/dL (11.5-16.0); IMMATURE GRAN ABSOLUTE AUTO 0.26 K/mm3 (0.00-0.10); IMMATURE GRAN PERCENT AUTO 2 % (0-1); LYMPHOCYTES ABSOLUTE AUTO 2.49 K/mm3 (0.84-5.20); LYMPHOCYTES PERCENT AUTO 22 % (21-46); MONOCYTES ABSOLUTE AUTO 0.81 K/mm3 (0.16-1.47); MONOCYTES PERCENT AUTO 7 % (4-13); Mean Corpuscular HGB 27.2 pg (26.0-34.0); Mean Corpuscular HGB Conc 32.4 g/dL (31.5-36.5); Mean Corpuscular Volume 84 fL (80-100); Mean Platelet Volume 9.3 fL (9.1-12.4); NEUTROPHILS ABSOLUTE AUTO 7.39 K/mm3 (1.96-9.15); NEUTROPHILS PERCENT AUTO 66 % (41-73); Platelet Count 343 K/mm3 (150-400); RDW Coefficient Variation 14.7 % (11.7-14.2); RDW Standard Deviation 44.6 fL (35.1-46.3); Red Blood Cell Count 4.59 M/mm3 (3.80-5.20); White Blood Cell Count 11.26 K/mm3 (4.00-11.30)
[2022-11-17 10:35] LABS: Albumin, Blood 3.1 g/dL (3.4-5.0); Albumin/Globulin Ratio 0.7 (0.8-1.8); Bilirubin, Total 0.3 mg/dL (0.1-1.0); Bun/Creatinine Ratio 32.3 (12.0-20.0); Calcium, Blood 8.2 mg/dL (8.5-10.1); Creatinine, Blood 0.71 mg/dL (0.40-1.00); Globulin, Blood 4.5 g/dL (2.2-4.0); Total Protein, Blood 7.6 g/dL (6.4-8.2)
== END 2022-11-17 11:59 | disposition home or self-care (01) ==
LOC: ATC 01:55
PROVIDERS: Dermatology
DX: K50.90 Crohn's disease, unspecified, without complications (principal); E11.9 Type 2 diabetes mellitus without complications; I10 Essential (primary) hypertension; Z88.8 Allergy status to other drugs, medicaments and biological substances
CPT/HCPCS: 80053; 85025; 96413; 96415; J1200; J7040; Q5103

== ENCOUNTER 2023-02-09 01:02 | Day surgery (SDC) | payer OTHER ==
[~2023-02-09] VITALS: Wt 130.0 kg
[~2023-02-09 01:02] MED LIST changes: +SKYRIZI75 MG/0.81 SC
[2023-02-09] MEDS ORDERED: VRAYLAR1.5 MG PO (09:15)
[2023-02-09] MEDS ORDERED: LOSA25 PO (09:15)
[2023-02-09 10:06] LABS: BASOPHILS ABSOLUTE AUTO 0.07 K/mm3 (0.00-0.23); BASOPHILS PERCENT AUTO 1 % (0-2); EOSINOPHILS ABSOLUTE AUTO 0.17 K/mm3 (0.00-0.68); EOSINOPHILS PERCENT AUTO 2 % (0-6); Hematocrit 38.8 % (33.0-51.0); Hemoglobin 12.8 g/dL (11.5-16.0); IMMATURE GRAN ABSOLUTE AUTO 0.14 K/mm3 (0.00-0.10); IMMATURE GRAN PERCENT AUTO 2 % (0-1); LYMPHOCYTES ABSOLUTE AUTO 2.67 K/mm3 (0.84-5.20); LYMPHOCYTES PERCENT AUTO 32 % (21-46); MONOCYTES ABSOLUTE AUTO 0.65 K/mm3 (0.16-1.47); MONOCYTES PERCENT AUTO 8 % (4-13); Mean Corpuscular HGB 26.9 pg (26.0-34.0); Mean Corpuscular Volume 82 fL (80-100); Mean Platelet Volume 9.6 fL (9.1-12.4); NEUTROPHILS ABSOLUTE AUTO 4.56 K/mm3 (1.96-9.15); NEUTROPHILS PERCENT AUTO 55 % (41-73); Platelet Count 345 K/mm3 (150-400); RDW Coefficient Variation 14.7 % (11.7-14.2); RDW Standard Deviation 43.3 fL (35.1-46.3); Red Blood Cell Count 4.76 M/mm3 (3.80-5.20); White Blood Cell Count 8.26 K/mm3 (4.00-11.30)
[2023-02-09 10:20] LABS: Albumin, Blood 3.1 g/dL (3.4-5.0); Albumin/Globulin Ratio 0.6 (0.8-1.8); Bilirubin, Total 0.5 mg/dL (0.1-1.0); Bun/Creatinine Ratio 20.2 (12.0-20.0); Calcium, Blood 8.9 mg/dL (8.5-10.1); Creatinine, Blood 0.84 mg/dL (0.40-1.00); Globulin, Blood 4.8 g/dL (2.2-4.0); Potassium, Blood 4.2 mmol/L (3.5-5.5); Total Protein, Blood 7.9 g/dL (6.4-8.2)
== END 2023-02-09 12:00 | disposition home or self-care (01) ==
LOC: ATC 01:02
PROVIDERS: Dermatology
DX: K50.90 Crohn's disease, unspecified, without complications (principal)
CPT/HCPCS: 80053; 85025; 96413; 96415; J7040; Q5103

== ENCOUNTER 2023-03-26 03:42 | Day surgery (SDC) | payer OTHER ==
[~2023-03-26 03:42] MED LIST changes: +LOSA25 PO; +VRAYLAR1.5 MG PO
[2023-03-26 08:38] VITALS: BP 131/90
[2023-03-26 09:48] LABS: BASOPHILS ABSOLUTE AUTO 0.08 K/mm3 (0.00-0.23); BASOPHILS PERCENT AUTO 1 % (0-2); EOSINOPHILS ABSOLUTE AUTO 0.25 K/mm3 (0.00-0.68); EOSINOPHILS PERCENT AUTO 3 % (0-6); Hematocrit 37.3 % (33.0-51.0); Hemoglobin 11.9 g/dL (11.5-16.0); IMMATURE GRAN ABSOLUTE AUTO 0.16 K/mm3 (0.00-0.10); IMMATURE GRAN PERCENT AUTO 2 % (0-1); LYMPHOCYTES ABSOLUTE AUTO 2.75 K/mm3 (0.84-5.20); LYMPHOCYTES PERCENT AUTO 29 % (21-46); MONOCYTES ABSOLUTE AUTO 0.59 K/mm3 (0.16-1.47); MONOCYTES PERCENT AUTO 6 % (4-13); Mean Corpuscular HGB 26.5 pg (26.0-34.0); Mean Corpuscular HGB Conc 31.9 g/dL (31.5-36.5); Mean Corpuscular Volume 83 fL (80-100); NEUTROPHILS ABSOLUTE AUTO 5.51 K/mm3 (1.96-9.15); NEUTROPHILS PERCENT AUTO 59 % (41-73); Platelet Count 298 K/mm3 (150-400); RDW Coefficient Variation 14.6 % (11.7-14.2); RDW Standard Deviation 43.8 fL (35.1-46.3); Red Blood Cell Count 4.49 M/mm3 (3.80-5.20); White Blood Cell Count 9.34 K/mm3 (4.00-11.30)
[2023-03-26 09:56] LABS: Albumin, Blood 2.8 g/dL (3.4-5.0); Albumin/Globulin Ratio 0.6 (0.8-1.8); Bilirubin, Total 0.4 mg/dL (0.1-1.0); Bun/Creatinine Ratio 24.6 (12.0-20.0); Calcium, Blood 8.3 mg/dL (8.5-10.1); Creatinine, Blood 0.65 mg/dL (0.40-1.00); Globulin, Blood 4.5 g/dL (2.2-4.0); Potassium, Blood 4.1 mmol/L (3.5-5.5); Total Protein, Blood 7.3 g/dL (6.4-8.2)
== END 2023-03-26 11:33 | disposition home or self-care (01) ==
LOC: ATC 03:42
PROVIDERS: Dermatology
DX: L98.499 Non-pressure chronic ulcer of skin of other sites with unspecified severity (principal); K50.918 Crohn's disease, unspecified, with other complication
CPT/HCPCS: 80053; 85025; 96413; 96415; J7040; Q5103

== ENCOUNTER → 2023-05-03 | Outpatient (CLI) | payer OTHER ==
[~2023-05-03] MED LIST changes: +METR250 PO
== END | disposition home or self-care (01) ==
LOC: LAB 10:00 → LAB SHORT 10:00
DX: L08.0 Pyoderma (principal)
CPT/HCPCS: 87070; 87077; 87147; 87186; 87205

== ENCOUNTER 2023-05-07 03:06 | Day surgery (SDC) | payer OTHER ==
[~2023-05-07] VITALS: Wt 130.6 kg
[~2023-05-07 03:06] MED LIST changes: -METR250 PO
[2023-05-07 08:52] VITALS: BP 128/79
[2023-05-07 09:28] LABS: BASOPHILS ABSOLUTE AUTO 0.06 K/mm3 (0.00-0.23); BASOPHILS PERCENT AUTO 1 % (0-2); EOSINOPHILS ABSOLUTE AUTO 0.22 K/mm3 (0.00-0.68); EOSINOPHILS PERCENT AUTO 2 % (0-6); Hematocrit 37.2 % (33.0-51.0); IMMATURE GRAN ABSOLUTE AUTO 0.13 K/mm3 (0.00-0.10); IMMATURE GRAN PERCENT AUTO 1 % (0-1); LYMPHOCYTES ABSOLUTE AUTO 2.19 K/mm3 (0.84-5.20); LYMPHOCYTES PERCENT AUTO 21 % (21-46); MONOCYTES ABSOLUTE AUTO 0.64 K/mm3 (0.16-1.47); MONOCYTES PERCENT AUTO 6 % (4-13); Mean Corpuscular HGB 26.3 pg (26.0-34.0); Mean Corpuscular HGB Conc 32.3 g/dL (31.5-36.5); Mean Corpuscular Volume 82 fL (80-100); Mean Platelet Volume 9.5 fL (9.1-12.4); NEUTROPHILS ABSOLUTE AUTO 7.46 K/mm3 (1.96-9.15); NEUTROPHILS PERCENT AUTO 70 % (41-73); Platelet Count 306 K/mm3 (150-400); RDW Coefficient Variation 14.4 % (11.7-14.2); RDW Standard Deviation 42.1 fL (35.1-46.3); Red Blood Cell Count 4.56 M/mm3 (3.80-5.20)
[2023-05-07] MEDS ORDERED: METR250 PO (09:33)
[2023-05-07 09:43] LABS: Albumin, Blood 2.8 g/dL (3.4-5.0); Albumin/Globulin Ratio 0.6 (0.8-1.8); Bilirubin, Total 0.5 mg/dL (0.1-1.0); Bun/Creatinine Ratio 21.2 (12.0-20.0); Calcium, Blood 8.6 mg/dL (8.5-10.1); Creatinine, Blood 0.76 mg/dL (0.40-1.00); Globulin, Blood 4.7 g/dL (2.2-4.0); Total Protein, Blood 7.5 g/dL (6.4-8.2)
== END 2023-05-07 11:24 | disposition home or self-care (01) ==
LOC: ATC 03:06
PROVIDERS: Dermatology
DX: L98.499 Non-pressure chronic ulcer of skin of other sites with unspecified severity (principal); E11.9 Type 2 diabetes mellitus without complications; I10 Essential (primary) hypertension; Z88.8 Allergy status to other drugs, medicaments and biological substances
CPT/HCPCS: 36415; 80053; 85025; 96413; 96415; J7040; Q5103

== ENCOUNTER 2023-06-25 03:22 | Day surgery (SDC) | payer OTHER ==
[~2023-06-25] VITALS: Wt 125.8 kg
[~2023-06-25 03:22] MED LIST changes: +METR250 PO
[2023-06-25 09:25] VITALS: BP 110/87
[2023-06-25 09:50] LABS: BASOPHILS ABSOLUTE AUTO 0.06 K/mm3 (0.00-0.23); BASOPHILS PERCENT AUTO 1 % (0-2); EOSINOPHILS ABSOLUTE AUTO 0.17 K/mm3 (0.00-0.68); EOSINOPHILS PERCENT AUTO 2 % (0-6); Hematocrit 40.6 % (33.0-51.0); Hemoglobin 12.9 g/dL (11.5-16.0); IMMATURE GRAN ABSOLUTE AUTO 0.13 K/mm3 (0.00-0.10); IMMATURE GRAN PERCENT AUTO 1 % (0-1); LYMPHOCYTES ABSOLUTE AUTO 2.25 K/mm3 (0.84-5.20); LYMPHOCYTES PERCENT AUTO 22 % (21-46); MONOCYTES ABSOLUTE AUTO 0.63 K/mm3 (0.16-1.47); MONOCYTES PERCENT AUTO 6 % (4-13); Mean Corpuscular HGB 25.6 pg (26.0-34.0); Mean Corpuscular HGB Conc 31.8 g/dL (31.5-36.5); Mean Corpuscular Volume 81 fL (80-100); Mean Platelet Volume 9.4 fL (9.1-12.4); NEUTROPHILS ABSOLUTE AUTO 7.13 K/mm3 (1.96-9.15); NEUTROPHILS PERCENT AUTO 69 % (41-73); Platelet Count 422 K/mm3 (150-400); RDW Coefficient Variation 14.5 % (11.7-14.2); RDW Standard Deviation 42.4 fL (35.1-46.3); Red Blood Cell Count 5.03 M/mm3 (3.80-5.20); White Blood Cell Count 10.37 K/mm3 (4.00-11.30)
[2023-06-25 10:09] LABS: Albumin/Globulin Ratio 0.6 (0.8-1.8); Bilirubin, Total 0.3 mg/dL (0.1-1.0); Bun/Creatinine Ratio 18.8 (12.0-20.0); Calcium, Blood 8.6 mg/dL (8.5-10.1); Creatinine, Blood 0.69 mg/dL (0.40-1.00); Potassium, Blood 4.1 mmol/L (3.5-5.5)
== END 2023-06-25 11:52 | disposition home or self-care (01) ==
LOC: ATC 03:22
PROVIDERS: Dermatology
DX: L98.499 Non-pressure chronic ulcer of skin of other sites with unspecified severity (principal); E11.9 Type 2 diabetes mellitus without complications; I10 Essential (primary) hypertension; E07.9 Disorder of thyroid, unspecified
CPT/HCPCS: 80053; 85025; 96413; 96415; J7040; Q5103

== ENCOUNTER 2023-07-13 13:33 | Day surgery (SDC) | payer OTHER ==
[~2023-07-13] VITALS: Ht 170.2 cm; Wt 125.3 kg
[2023-07-13 15:13] VITALS: BP 119/73
--- NOTE | 2023-07-13 15:15 | NUR ---
07/13/23 1515 Prisca Powell IV. PT TOLERATED WELL. COBAN/GAUZE IN PLACE
== END 2023-07-13 15:15 | disposition home or self-care (01) ==
LOC: ORSCSDS 13:33
PROVIDERS: Internal Medicine Gastroenterology
PROC: 0DBL8ZX Excision of Transverse Colon, Via Natural or Artificial Opening Endoscopic, Diagnostic (ICD-10-PCS; principal; 2023-07-13 15:30)
DX: K50.90 Crohn's disease, unspecified, without complications (principal); D12.3 Benign neoplasm of transverse colon; K63.5 Polyp of colon; K64.8 Other hemorrhoids; K57.30 Diverticulosis of large intestine without perforation or abscess without bleeding; K21.9 Gastro-esophageal reflux disease without esophagitis; I10 Essential (primary) hypertension; E11.9 Type 2 diabetes mellitus without complications; E03.9 Hypothyroidism, unspecified; J45.909 Unspecified asthma, uncomplicated; F32.A Depression, unspecified; F41.9 Anxiety disorder, unspecified; Z87.891 Personal history of nicotine dependence; E66.9 Obesity, unspecified; Z68.41 Body mass index [BMI] 40.0-44.9, adult; Z79.4 Long term (current) use of insulin; Z79.84 Long term (current) use of oral hypoglycemic drugs; Z79.899 Other long term (current) drug therapy
CPT/HCPCS: 82947; 88305; J0461; J2405; J2704; J7120

== ENCOUNTER → 2023-08-26 | Outpatient (CLI) | payer OTHER | LOC: LAB SHORT 14:05 → LAB 14:05 | DX: L08.0 Pyoderma (principal) | CPT/HCPCS: 87070; 87205 ==

== ENCOUNTER 2023-08-30 00:05 | Day surgery (SDC) | payer OTHER ==
[2023-08-30] MEDS ORDERED: CEFD300 PO (14:34)
[2023-08-30 14:40] VITALS: BP 155/97
[2023-08-30 15:13] LABS: Hematocrit 40.7 % (33.0-51.0); Hemoglobin 12.9 g/dL (11.5-16.0); Mean Corpuscular HGB 25.8 pg (26.0-34.0); Mean Corpuscular HGB Conc 31.7 g/dL (31.5-36.5); Mean Corpuscular Volume 81 fL (80-100); Mean Platelet Volume 9.7 fL (9.1-12.4); Platelet Count 398 K/mm3 (150-400); RDW Coefficient Variation 15.4 % (11.7-14.2); RDW Standard Deviation 44.7 fL (35.1-46.3); White Blood Cell Count 12.21 K/mm3 (4.00-11.30)
[2023-08-30 15:34] LABS: Albumin, Blood 2.6 g/dL (3.4-5.0); Albumin/Globulin Ratio 0.4 (0.8-1.8); Bilirubin, Total 0.4 mg/dL (0.1-1.0); Bun/Creatinine Ratio 24.5 (12.0-20.0); Calcium, Blood 8.5 mg/dL (8.5-10.1); Creatinine, Blood 0.74 mg/dL (0.40-1.00); Total Protein, Blood 8.6 g/dL (6.4-8.2)
== END 2023-08-30 17:13 | disposition home or self-care (01) ==
LOC: ATC 00:05
PROVIDERS: Dermatology
DX: E11.622 Type 2 diabetes mellitus with other skin ulcer (principal); L98.499 Non-pressure chronic ulcer of skin of other sites with unspecified severity; I10 Essential (primary) hypertension; E07.9 Disorder of thyroid, unspecified
CPT/HCPCS: 80053; 85027; 96413; 96415; J7040; Q5103

== ENCOUNTER 2023-11-05 03:05 | Day surgery (SDC) | payer OTHER ==
[2023-11-05 15:01] VITALS: BP 134/98
[2023-11-05 16:06] LABS: BASOPHILS ABSOLUTE AUTO 0.08 K/mm3 (0.00-0.23); BASOPHILS PERCENT AUTO 1 % (0-2); EOSINOPHILS ABSOLUTE AUTO 0.19 K/mm3 (0.00-0.68); EOSINOPHILS PERCENT AUTO 2 % (0-6); Hematocrit 38.4 % (33.0-51.0); Hemoglobin 12.1 g/dL (11.5-16.0); IMMATURE GRAN ABSOLUTE AUTO 0.12 K/mm3 (0.00-0.10); IMMATURE GRAN PERCENT AUTO 1 % (0-1); LYMPHOCYTES ABSOLUTE AUTO 2.76 K/mm3 (0.84-5.20); LYMPHOCYTES PERCENT AUTO 26 % (21-46); MONOCYTES ABSOLUTE AUTO 0.68 K/mm3 (0.16-1.47); MONOCYTES PERCENT AUTO 7 % (4-13); Mean Corpuscular HGB 25.9 pg (26.0-34.0); Mean Corpuscular HGB Conc 31.5 g/dL (31.5-36.5); Mean Corpuscular Volume 82 fL (80-100); Mean Platelet Volume 9.3 fL (9.1-12.4); NEUTROPHILS ABSOLUTE AUTO 6.69 K/mm3 (1.96-9.15); NEUTROPHILS PERCENT AUTO 64 % (41-73); Platelet Count 374 K/mm3 (150-400); RDW Coefficient Variation 14.6 % (11.7-14.2); RDW Standard Deviation 43.1 fL (35.1-46.3); Red Blood Cell Count 4.67 M/mm3 (3.80-5.20); White Blood Cell Count 10.52 K/mm3 (4.00-11.30)
[2023-11-05 18:35] LABS: Albumin, Blood 2.7 g/dL (3.4-5.0); Albumin/Globulin Ratio 0.6 (0.8-1.8); Bilirubin, Total 0.3 mg/dL (0.1-1.0); Bun/Creatinine Ratio 17.9 (12.0-20.0); Calcium, Blood 8.4 mg/dL (8.5-10.1); Creatinine, Blood 0.67 mg/dL (0.40-1.00); Globulin, Blood 4.9 g/dL (2.2-4.0); Total Protein, Blood 7.6 g/dL (6.4-8.2)
== END 2023-11-05 17:47 | disposition home or self-care (01) ==
LOC: ATC 03:05
PROVIDERS: Dermatology
DX: K50.919 Crohn's disease, unspecified, with unspecified complications (principal)
CPT/HCPCS: 80053; 85025; 96413; 96415; J7040; Q5103

== ENCOUNTER 2023-12-17 01:30 | Day surgery (SDC) | payer OTHER ==
[2023-12-17 08:15] VITALS: BP 120/78
[2023-12-17 09:32] LABS: BASOPHILS ABSOLUTE AUTO 0.07 K/mm3 (0.00-0.23); BASOPHILS PERCENT AUTO 1 % (0-2); EOSINOPHILS ABSOLUTE AUTO 0.22 K/mm3 (0.00-0.68); EOSINOPHILS PERCENT AUTO 2 % (0-6); Hematocrit 40.9 % (33.0-51.0); Hemoglobin 12.9 g/dL (11.5-16.0); IMMATURE GRAN ABSOLUTE AUTO 0.15 K/mm3 (0.00-0.10); IMMATURE GRAN PERCENT AUTO 1 % (0-1); LYMPHOCYTES ABSOLUTE AUTO 3.06 K/mm3 (0.84-5.20); LYMPHOCYTES PERCENT AUTO 25 % (21-46); MONOCYTES ABSOLUTE AUTO 0.77 K/mm3 (0.16-1.47); MONOCYTES PERCENT AUTO 6 % (4-13); Mean Corpuscular HGB 25.4 pg (26.0-34.0); Mean Corpuscular HGB Conc 31.5 g/dL (31.5-36.5); Mean Corpuscular Volume 81 fL (80-100); Mean Platelet Volume 9.4 fL (9.1-12.4); NEUTROPHILS ABSOLUTE AUTO 8.03 K/mm3 (1.96-9.15); NEUTROPHILS PERCENT AUTO 65 % (41-73); Platelet Count 361 K/mm3 (150-400); RDW Coefficient Variation 14.8 % (11.7-14.2); RDW Standard Deviation 42.9 fL (35.1-46.3); Red Blood Cell Count 5.07 M/mm3 (3.80-5.20)
[2023-12-17 09:42] LABS: Albumin, Blood 2.8 g/dL (3.4-5.0); Albumin/Globulin Ratio 0.5 (0.8-1.8); Bilirubin, Total 0.3 mg/dL (0.1-1.0); Bun/Creatinine Ratio 23.9 (12.0-20.0); Calcium, Blood 8.8 mg/dL (8.5-10.1); Creatinine, Blood 0.79 mg/dL (0.40-1.00); Globulin, Blood 5.5 g/dL (2.2-4.0); Potassium, Blood 3.7 mmol/L (3.5-5.5); Total Protein, Blood 8.3 g/dL (6.4-8.2)
== END 2023-12-17 11:05 | disposition home or self-care (01) ==
LOC: ATC 01:30
PROVIDERS: Dermatology
DX: K50.919 Crohn's disease, unspecified, with unspecified complications (principal); E11.9 Type 2 diabetes mellitus without complications; L98.499 Non-pressure chronic ulcer of skin of other sites with unspecified severity
CPT/HCPCS: 80053; 85025; 96413; 96415; J7040; Q5103

== ENCOUNTER 2024-01-27 02:56 | Day surgery (SDC) | payer OTHER ==
[2024-01-27] MEDS ORDERED: NS IV SCH (06:00)
[2024-01-27] MEDS ORDERED: INFLIXIMAB DYYB IV SCH (06:00)
[2024-01-27 07:55] VITALS: BP 145/98
[2024-01-27 08:26] LABS: BASOPHILS ABSOLUTE AUTO 0.05 K/mm3 (0.00-0.23); BASOPHILS PERCENT AUTO 1 % (0-2); EOSINOPHILS ABSOLUTE AUTO 0.19 K/mm3 (0.00-0.68); EOSINOPHILS PERCENT AUTO 2 % (0-6); Hematocrit 38.4 % (33.0-51.0); IMMATURE GRAN ABSOLUTE AUTO 0.09 K/mm3 (0.00-0.10); IMMATURE GRAN PERCENT AUTO 1 % (0-1); LYMPHOCYTES ABSOLUTE AUTO 2.76 K/mm3 (0.84-5.20); LYMPHOCYTES PERCENT AUTO 28 % (21-46); MONOCYTES ABSOLUTE AUTO 0.57 K/mm3 (0.16-1.47); MONOCYTES PERCENT AUTO 6 % (4-13); Mean Corpuscular HGB 24.9 pg (26.0-34.0); Mean Corpuscular HGB Conc 31.3 g/dL (31.5-36.5); Mean Corpuscular Volume 80 fL (80-100); Mean Platelet Volume 8.4 fL (9.1-12.4); NEUTROPHILS ABSOLUTE AUTO 6.19 K/mm3 (1.96-9.15); NEUTROPHILS PERCENT AUTO 63 % (41-73); Platelet Count 410 K/mm3 (150-400); RDW Standard Deviation 40.7 fL (35.1-46.3); Red Blood Cell Count 4.81 M/mm3 (3.80-5.20); White Blood Cell Count 9.85 K/mm3 (4.00-11.30)
[2024-01-27 09:01] LABS: Albumin, Blood 2.8 g/dL (3.4-5.0); Albumin/Globulin Ratio 0.5 (0.8-1.8); Bilirubin, Total 0.2 mg/dL (0.1-1.0); Calcium, Blood 8.8 mg/dL (8.5-10.1); Creatinine, Blood 0.64 mg/dL (0.40-1.00); Globulin, Blood 5.3 g/dL (2.2-4.0); Potassium, Blood 3.7 mmol/L (3.5-5.5); Total Protein, Blood 8.1 g/dL (6.4-8.2)
== END 2024-01-27 10:34 | disposition home or self-care (01) ==
LOC: ATC 02:56
PROVIDERS: Dermatology
DX: K50.919 Crohn's disease, unspecified, with unspecified complications (principal); E11.9 Type 2 diabetes mellitus without complications; E07.9 Disorder of thyroid, unspecified; Z79.84 Long term (current) use of oral hypoglycemic drugs; Z79.4 Long term (current) use of insulin; Z79.890 Hormone replacement therapy; Z88.8 Allergy status to other drugs, medicaments and biological substances
CPT/HCPCS: 80053; 85025; 96413; 96415; J7040; Q5103

== ENCOUNTER 2024-04-03 00:17 | Day surgery (SDC) | payer OTHER ==
[2024-04-03 08:05] VITALS: BP 114/82
== END 2024-04-03 11:07 | disposition home or self-care (01) ==
LOC: ATC 00:17
DX: K50.919 Crohn's disease, unspecified, with unspecified complications (principal); E11.9 Type 2 diabetes mellitus without complications; E07.9 Disorder of thyroid, unspecified; Z79.84 Long term (current) use of oral hypoglycemic drugs; Z79.4 Long term (current) use of insulin; Z79.890 Hormone replacement therapy

== ENCOUNTER 2024-05-08 04:01 | Day surgery (SDC) | payer OTHER ==
[~2024-05-08] VITALS: Wt 115.4 kg
[2024-05-08] MEDS ORDERED: NS IV SCH (06:00)
[2024-05-08] MEDS ORDERED: INFLIXIMAB DYYB IV SCH (06:00)
[2024-05-08] MEDS ORDERED: DiphenhydrAMINE HCl 50 MG/ML 1ML Vial IV SCH (07:05)
[2024-05-08 08:16] VITALS: BP 138/86
[2024-05-08 08:50] LABS: BASOPHILS ABSOLUTE AUTO 0.07 K/mm3 (0.00-0.23); BASOPHILS PERCENT AUTO 1 % (0-2); EOSINOPHILS ABSOLUTE AUTO 0.22 K/mm3 (0.00-0.68); EOSINOPHILS PERCENT AUTO 3 % (0-6); Hematocrit 35.6 % (33.0-51.0); Hemoglobin 11.3 g/dL (11.5-16.0); IMMATURE GRAN ABSOLUTE AUTO 0.11 K/mm3 (0.00-0.10); IMMATURE GRAN PERCENT AUTO 1 % (0-1); LYMPHOCYTES ABSOLUTE AUTO 2.75 K/mm3 (0.84-5.20); LYMPHOCYTES PERCENT AUTO 31 % (21-46); MONOCYTES ABSOLUTE AUTO 0.57 K/mm3 (0.16-1.47); MONOCYTES PERCENT AUTO 6 % (4-13); Mean Corpuscular HGB 25.7 pg (26.0-34.0); Mean Corpuscular HGB Conc 31.7 g/dL (31.5-36.5); Mean Corpuscular Volume 81 fL (80-100); Mean Platelet Volume 9.2 fL (9.1-12.4); NEUTROPHILS ABSOLUTE AUTO 5.21 K/mm3 (1.96-9.15); NEUTROPHILS PERCENT AUTO 58 % (41-73); Platelet Count 353 K/mm3 (150-400); RDW Coefficient Variation 15.1 % (11.7-14.2); RDW Standard Deviation 44.5 fL (35.1-46.3); White Blood Cell Count 8.93 K/mm3 (4.00-11.30)
[2024-05-08 09:17] LABS: Albumin, Blood 2.6 g/dL (3.4-5.0); Albumin/Globulin Ratio 0.5 (0.8-1.8); Bilirubin, Total 0.1 mg/dL (0.1-1.0); Bun/Creatinine Ratio 27.6 (12.0-20.0); Calcium, Blood 8.2 mg/dL (8.5-10.1); Creatinine, Blood 0.65 mg/dL (0.40-1.00); Globulin, Blood 4.8 g/dL (2.2-4.0); Potassium, Blood 4.1 mmol/L (3.5-5.5); Total Protein, Blood 7.4 g/dL (6.4-8.2)
[2024-05-08] MEDS ORDERED: METR500 PO (09:25)
[2024-05-08] MEDS ORDERED: SYNTHROID175 MC1 PO (09:26)
== END 2024-05-08 10:55 | disposition home or self-care (01) ==
LOC: ATC 04:01
PROVIDERS: Dermatology
DX: K50.919 Crohn's disease, unspecified, with unspecified complications (principal); E11.9 Type 2 diabetes mellitus without complications; Z88.8 Allergy status to other drugs, medicaments and biological substances; Z79.899 Other long term (current) drug therapy
CPT/HCPCS: 80053; 85025; 96413; 96415; J7040; Q5103

== ENCOUNTER 2024-06-19 08:03 | Day surgery (SDC) | payer OTHER ==
[~2024-06-19 08:03] MED LIST changes: +INFLIXIMAB DYYB IV SCH; +NS IV SCH; +SYNTHROID175 MC1 PO
[2024-06-19 08:10] VITALS: BP 138/93
[2024-06-19 09:49] LABS: BASOPHILS ABSOLUTE AUTO 0.07 K/mm3 (0.00-0.23); BASOPHILS PERCENT AUTO 1 % (0-2); EOSINOPHILS ABSOLUTE AUTO 0.19 K/mm3 (0.00-0.68); EOSINOPHILS PERCENT AUTO 2 % (0-6); Hematocrit 38.8 % (33.0-51.0); Hemoglobin 12.5 g/dL (11.5-16.0); IMMATURE GRAN ABSOLUTE AUTO 0.09 K/mm3 (0.00-0.10); IMMATURE GRAN PERCENT AUTO 1 % (0-1); LYMPHOCYTES ABSOLUTE AUTO 2.56 K/mm3 (0.84-5.20); LYMPHOCYTES PERCENT AUTO 27 % (21-46); MONOCYTES ABSOLUTE AUTO 0.63 K/mm3 (0.16-1.47); MONOCYTES PERCENT AUTO 7 % (4-13); Mean Corpuscular HGB 25.8 pg (26.0-34.0); Mean Corpuscular HGB Conc 32.2 g/dL (31.5-36.5); Mean Corpuscular Volume 80 fL (80-100); Mean Platelet Volume 9.4 fL (9.1-12.4); NEUTROPHILS ABSOLUTE AUTO 5.84 K/mm3 (1.96-9.15); NEUTROPHILS PERCENT AUTO 62 % (41-73); Platelet Count 370 K/mm3 (150-400); RDW Coefficient Variation 14.9 % (11.7-14.2); RDW Standard Deviation 43.3 fL (35.1-46.3); Red Blood Cell Count 4.84 M/mm3 (3.80-5.20); White Blood Cell Count 9.38 K/mm3 (4.00-11.30)
[2024-06-19 10:19] LABS: Albumin/Globulin Ratio 0.6 (0.8-1.8); Bilirubin, Total 0.3 mg/dL (0.1-1.0); Bun/Creatinine Ratio 18.1 (12.0-20.0); Calcium, Blood 8.7 mg/dL (8.5-10.1); Creatinine, Blood 0.89 mg/dL (0.40-1.00); Globulin, Blood 5.4 g/dL (2.2-4.0); Potassium, Blood 3.8 mmol/L (3.5-5.5); Total Protein, Blood 8.4 g/dL (6.4-8.2)
== END 2024-06-19 11:11 | disposition home or self-care (01) ==
LOC: ATC 08:03
PROVIDERS: Dermatology
DX: K50.919 Crohn's disease, unspecified, with unspecified complications (principal); E11.9 Type 2 diabetes mellitus without complications; I10 Essential (primary) hypertension; E07.9 Disorder of thyroid, unspecified; Z88.8 Allergy status to other drugs, medicaments and biological substances
CPT/HCPCS: 80053; 85025; 96413; 96415; J7040; Q5103

== ENCOUNTER → 2024-06-22 | Outpatient (CLI) | payer OTHER ==
[~2024-06-22] MED LIST changes: -INFLIXIMAB DYYB IV SCH; -NS IV SCH
[2024-06-22 15:43] LABS: Source, Urine Clean Catch
[2024-06-22 16:44] LABS: Amorphous Light (0-Heavy); Bacteria Few /hpf; Mucus Light (0-Heavy); Red Blood Cells, Urine 0-2 /hpf (0-2); Squamous Epithelial Cells Few /hpf (Few)
== END ==
LOC: LAB 15:38 → LAB SHORT 15:38
PROVIDERS: Nurse Practitioner Family
DX: R30.0 Dysuria (principal)
CPT/HCPCS: 81015; 87086

== ENCOUNTER 2024-08-01 01:09 | Day surgery (SDC) | payer OTHER ==
[~2024-08-01 01:09] MED LIST changes: +ALDACTONE100 MG; +DOCU100; +FLAGYL500 M1; +INFLECTRA100 MG; +PRAVASTATIN SOD10 MG; +SKYRIZI150 MG/1 M
[2024-08-01] MEDS ORDERED: INFLIXIMAB DYYB IV SCH (06:00)
[2024-08-01] MEDS ORDERED: NS IV SCH (06:00)
[2024-08-01 09:12] VITALS: BP 131/89
[2024-08-01 09:53] LABS: BASOPHILS ABSOLUTE AUTO 0.05 K/mm3 (0.00-0.23); BASOPHILS PERCENT AUTO 1 % (0-2); EOSINOPHILS ABSOLUTE AUTO 0.16 K/mm3 (0.00-0.68); EOSINOPHILS PERCENT AUTO 2 % (0-6); Hematocrit 36.8 % (33.0-51.0); Hemoglobin 11.9 g/dL (11.5-16.0); IMMATURE GRAN PERCENT AUTO 1 % (0-1); LYMPHOCYTES ABSOLUTE AUTO 2.84 K/mm3 (0.84-5.20); LYMPHOCYTES PERCENT AUTO 29 % (21-46); MONOCYTES ABSOLUTE AUTO 0.65 K/mm3 (0.16-1.47); MONOCYTES PERCENT AUTO 7 % (4-13); Mean Corpuscular HGB 26.7 pg (26.0-34.0); Mean Corpuscular HGB Conc 32.3 g/dL (31.5-36.5); Mean Corpuscular Volume 83 fL (80-100); Mean Platelet Volume 9.3 fL (9.1-12.4); NEUTROPHILS ABSOLUTE AUTO 6.06 K/mm3 (1.96-9.15); NEUTROPHILS PERCENT AUTO 62 % (41-73); Platelet Count 345 K/mm3 (150-400); RDW Standard Deviation 44.7 fL (35.1-46.3); Red Blood Cell Count 4.46 M/mm3 (3.80-5.20); White Blood Cell Count 9.86 K/mm3 (4.00-11.30)
[2024-08-01 10:20] LABS: Albumin, Blood 2.8 g/dL (3.4-5.0); Albumin/Globulin Ratio 0.6 (0.8-1.8); Bilirubin, Total 0.2 mg/dL (0.1-1.0); Bun/Creatinine Ratio 24.6 (12.0-20.0); Calcium, Blood 8.8 mg/dL (8.5-10.1); Creatinine, Blood 0.73 mg/dL (0.40-1.00); Potassium, Blood 4.2 mmol/L (3.5-5.5); Total Protein, Blood 7.8 g/dL (6.4-8.2)
== END 2024-08-01 12:03 | disposition home or self-care (01) ==
LOC: ATC 01:09
PROVIDERS: Dermatology
DX: K50.919 Crohn's disease, unspecified, with unspecified complications (principal); E11.9 Type 2 diabetes mellitus without complications; I10 Essential (primary) hypertension; Z88.8 Allergy status to other drugs, medicaments and biological substances; Z79.899 Other long term (current) drug therapy; Z79.84 Long term (current) use of oral hypoglycemic drugs
CPT/HCPCS: 80053; 85025; 96413; 96415; J7040; Q5103

== ENCOUNTER 2024-09-12 02:16 | Day surgery (SDC) | payer OTHER ==
[2024-09-12] MEDS ORDERED: NS IV SCH (06:00)
[2024-09-12] MEDS ORDERED: INFLIXIMAB DYYB IV SCH (06:00)
[2024-09-12 07:52] VITALS: BP 172/92
[2024-09-12 09:05] LABS: BASOPHILS ABSOLUTE AUTO 0.09 K/mm3 (0.00-0.23); BASOPHILS PERCENT AUTO 1 % (0-2); EOSINOPHILS ABSOLUTE AUTO 0.18 K/mm3 (0.00-0.68); EOSINOPHILS PERCENT AUTO 2 % (0-6); Hematocrit 38.8 % (33.0-51.0); Hemoglobin 12.5 g/dL (11.5-16.0); IMMATURE GRAN ABSOLUTE AUTO 0.12 K/mm3 (0.00-0.10); IMMATURE GRAN PERCENT AUTO 1 % (0-1); LYMPHOCYTES ABSOLUTE AUTO 2.95 K/mm3 (0.84-5.20); LYMPHOCYTES PERCENT AUTO 28 % (21-46); MONOCYTES PERCENT AUTO 7 % (4-13); Mean Corpuscular HGB 26.5 pg (26.0-34.0); Mean Corpuscular HGB Conc 32.2 g/dL (31.5-36.5); Mean Corpuscular Volume 82 fL (80-100); Mean Platelet Volume 9.9 fL (9.1-12.4); NEUTROPHILS ABSOLUTE AUTO 6.35 K/mm3 (1.96-9.15); NEUTROPHILS PERCENT AUTO 61 % (41-73); Platelet Count 323 K/mm3 (150-400); RDW Coefficient Variation 14.6 % (11.7-14.2); RDW Standard Deviation 43.4 fL (35.1-46.3); Red Blood Cell Count 4.71 M/mm3 (3.80-5.20); White Blood Cell Count 10.39 K/mm3 (4.00-11.30)
[2024-09-12 09:43] LABS: Albumin, Blood 2.9 g/dL (3.4-5.0); Albumin/Globulin Ratio 0.6 (0.8-1.8); Bilirubin, Total 0.3 mg/dL (0.1-1.0); Bun/Creatinine Ratio 15.4 (12.0-20.0); Calcium, Blood 8.5 mg/dL (8.5-10.1); Creatinine, Blood 0.91 mg/dL (0.40-1.00); Globulin, Blood 5.1 g/dL (2.2-4.0)
== END 2024-09-12 10:43 | disposition home or self-care (01) ==
LOC: ATC 02:16
PROVIDERS: Dermatology
DX: K50.918 Crohn's disease, unspecified, with other complication (principal); I10 Essential (primary) hypertension; E11.622 Type 2 diabetes mellitus with other skin ulcer; L98.419 Non-pressure chronic ulcer of buttock with unspecified severity; Z79.899 Other long term (current) drug therapy; Z88.8 Allergy status to other drugs, medicaments and biological substances
CPT/HCPCS: 80053; 85025; 96413; 96415; J7040; Q5103

== ENCOUNTER 2024-11-13 04:15 | Day surgery (SDC) | payer OTHER ==
[~2024-11-13] VITALS: Wt 117.3 kg
[~2024-11-13 04:15] MED LIST changes: +INFLIXIMAB DYYB IV SCH; +NS IV SCH
[2024-11-13] MEDS ORDERED: INFLIXIMAB DYYB IV SCH (06:00)
[2024-11-13] MEDS ORDERED: NS IV SCH (06:00)
[2024-11-13 07:40] VITALS: BP 150/104
[2024-11-13 08:24] VITALS: BP 135/82
[2024-11-13 08:24] LABS: BASOPHILS ABSOLUTE AUTO 0.07 K/mm3 (0.00-0.23); BASOPHILS PERCENT AUTO 1 % (0-2); EOSINOPHILS ABSOLUTE AUTO 0.13 K/mm3 (0.00-0.68); EOSINOPHILS PERCENT AUTO 1 % (0-6); Hematocrit 41.8 % (33.0-51.0); Hemoglobin 13.3 g/dL (11.5-16.0); IMMATURE GRAN ABSOLUTE AUTO 0.08 K/mm3 (0.00-0.10); IMMATURE GRAN PERCENT AUTO 1 % (0-1); LYMPHOCYTES ABSOLUTE AUTO 2.74 K/mm3 (0.84-5.20); LYMPHOCYTES PERCENT AUTO 28 % (21-46); MONOCYTES ABSOLUTE AUTO 1.12 K/mm3 (0.16-1.47); MONOCYTES PERCENT AUTO 12 % (4-13); Mean Corpuscular HGB 26.7 pg (26.0-34.0); Mean Corpuscular HGB Conc 31.8 g/dL (31.5-36.5); Mean Corpuscular Volume 84 fL (80-100); Mean Platelet Volume 9.3 fL (9.1-12.4); NEUTROPHILS ABSOLUTE AUTO 5.57 K/mm3 (1.96-9.15); NEUTROPHILS PERCENT AUTO 58 % (41-73); Platelet Count 381 K/mm3 (150-400); RDW Coefficient Variation 14.6 % (11.7-14.2); RDW Standard Deviation 43.8 fL (35.1-46.3); Red Blood Cell Count 4.98 M/mm3 (3.80-5.20); White Blood Cell Count 9.71 K/mm3 (4.00-11.30)
[2024-11-13 08:42] LABS: Albumin, Blood 3.1 g/dL (3.4-5.0); Albumin/Globulin Ratio 0.6 (0.8-1.8); Bilirubin, Total 0.3 mg/dL (0.1-1.0); Bun/Creatinine Ratio 12.6 (12.0-20.0); Calcium, Blood 9.1 mg/dL (8.5-10.1); Creatinine, Blood 0.87 mg/dL (0.40-1.00); Globulin, Blood 5.6 g/dL (2.2-4.0); Total Protein, Blood 8.7 g/dL (6.4-8.2)
== END 2024-11-13 10:47 | disposition home or self-care (01) ==
LOC: ATC 04:15
PROVIDERS: Dermatology
DX: K50.90 Crohn's disease, unspecified, without complications (principal); E11.622 Type 2 diabetes mellitus with other skin ulcer; L98.419 Non-pressure chronic ulcer of buttock with unspecified severity; I10 Essential (primary) hypertension; Z79.4 Long term (current) use of insulin; Z79.84 Long term (current) use of oral hypoglycemic drugs; Z79.899 Other long term (current) drug therapy; Z88.8 Allergy status to other drugs, medicaments and biological substances; Z90.49 Acquired absence of other specified parts of digestive tract
CPT/HCPCS: 80053; 85025; 96413; 96415; J7040; Q5103

== ENCOUNTER 2024-12-11 03:59 | Day surgery (SDC) | payer OTHER ==
[~2024-12-11] VITALS: Wt 117.7 kg
[~2024-12-11 03:59] MED LIST changes: -INFLIXIMAB DYYB IV SCH; -NS IV SCH
[2024-12-11] MEDS ORDERED: INFLIXIMAB DYYB IV SCH (06:00)
[2024-12-11] MEDS ORDERED: NS IV SCH (06:00)
[2024-12-11 08:10] VITALS: BP 151/91
[2024-12-11 08:44] LABS: BASOPHILS ABSOLUTE AUTO 0.06 K/mm3 (0.00-0.23); BASOPHILS PERCENT AUTO 1 % (0-2); EOSINOPHILS ABSOLUTE AUTO 0.19 K/mm3 (0.00-0.68); EOSINOPHILS PERCENT AUTO 2 % (0-6); Hematocrit 37.8 % (33.0-51.0); IMMATURE GRAN ABSOLUTE AUTO 0.08 K/mm3 (0.00-0.10); IMMATURE GRAN PERCENT AUTO 1 % (0-1); LYMPHOCYTES ABSOLUTE AUTO 3.55 K/mm3 (0.84-5.20); LYMPHOCYTES PERCENT AUTO 34 % (21-46); MONOCYTES ABSOLUTE AUTO 0.74 K/mm3 (0.16-1.47); MONOCYTES PERCENT AUTO 7 % (4-13); Mean Corpuscular HGB 26.6 pg (26.0-34.0); Mean Corpuscular HGB Conc 31.7 g/dL (31.5-36.5); Mean Corpuscular Volume 84 fL (80-100); Mean Platelet Volume 9.2 fL (9.1-12.4); NEUTROPHILS ABSOLUTE AUTO 5.99 K/mm3 (1.96-9.15); NEUTROPHILS PERCENT AUTO 56 % (41-73); Platelet Count 371 K/mm3 (150-400); RDW Coefficient Variation 14.6 % (11.7-14.2); RDW Standard Deviation 44.5 fL (35.1-46.3); Red Blood Cell Count 4.51 M/mm3 (3.80-5.20); White Blood Cell Count 10.61 K/mm3 (4.00-11.30)
[2024-12-11 09:15] LABS: Albumin, Blood 2.8 g/dL (3.4-5.0); Albumin/Globulin Ratio 0.5 (0.8-1.8); Bilirubin, Total 0.3 mg/dL (0.1-1.0); Bun/Creatinine Ratio 23.6 (12.0-20.0); Calcium, Blood 8.7 mg/dL (8.5-10.1); Creatinine, Blood 0.89 mg/dL (0.40-1.00); Globulin, Blood 5.4 g/dL (2.2-4.0); Total Protein, Blood 8.2 g/dL (6.4-8.2)
== END 2024-12-11 10:53 | disposition home or self-care (01) ==
LOC: ATC 03:59
PROVIDERS: Dermatology
DX: K50.90 Crohn's disease, unspecified, without complications (principal); I10 Essential (primary) hypertension; E11.9 Type 2 diabetes mellitus without complications; Z79.84 Long term (current) use of oral hypoglycemic drugs; Z79.4 Long term (current) use of insulin; Z79.899 Other long term (current) drug therapy; Z88.8 Allergy status to other drugs, medicaments and biological substances; Z90.49 Acquired absence of other specified parts of digestive tract
CPT/HCPCS: 80053; 85025; 96413; 96415; J7040; Q5103

== ENCOUNTER 2025-01-22 02:18 | Day surgery (SDC) | payer OTHER ==
[~2025-01-22] VITALS: Wt 113.0 kg
[~2025-01-22 02:18] MED LIST changes: +INFLIXIMAB DYYB IV SCH; +NS IV SCH
[2025-01-22 07:53] VITALS: BP 134/88
[2025-01-22 09:08] LABS: BASOPHILS ABSOLUTE AUTO 0.07 K/mm3 (0.00-0.23); BASOPHILS PERCENT AUTO 1 % (0-2); EOSINOPHILS ABSOLUTE AUTO 0.19 K/mm3 (0.00-0.68); EOSINOPHILS PERCENT AUTO 1 % (0-6); Hemoglobin 13.1 g/dL (11.5-16.0); IMMATURE GRAN ABSOLUTE AUTO 0.19 K/mm3 (0.00-0.10); IMMATURE GRAN PERCENT AUTO 1 % (0-1); LYMPHOCYTES ABSOLUTE AUTO 3.13 K/mm3 (0.84-5.20); LYMPHOCYTES PERCENT AUTO 22 % (21-46); MONOCYTES ABSOLUTE AUTO 1.06 K/mm3 (0.16-1.47); MONOCYTES PERCENT AUTO 8 % (4-13); Mean Corpuscular HGB 26.5 pg (26.0-34.0); Mean Corpuscular Volume 83 fL (80-100); Mean Platelet Volume 9.1 fL (9.1-12.4); NEUTROPHILS ABSOLUTE AUTO 9.36 K/mm3 (1.96-9.15); NEUTROPHILS PERCENT AUTO 67 % (41-73); Platelet Count 457 K/mm3 (150-400); RDW Coefficient Variation 15.1 % (11.7-14.2); RDW Standard Deviation 45.2 fL (35.1-46.3); Red Blood Cell Count 4.95 M/mm3 (3.80-5.20)
[2025-01-22 09:29] LABS: Albumin, Blood 3.2 g/dL (3.4-5.0); Albumin/Globulin Ratio 0.6 (0.8-1.8); Bilirubin, Total 0.3 mg/dL (0.1-1.0); Bun/Creatinine Ratio 27.5 (12.0-20.0); Creatinine, Blood 0.91 mg/dL (0.40-1.00); Globulin, Blood 5.2 g/dL (2.2-4.0); Potassium, Blood 4.1 mmol/L (3.5-5.5); Total Protein, Blood 8.4 g/dL (6.4-8.2)
== END 2025-01-22 11:15 | disposition home or self-care (01) ==
LOC: ATC 02:18
PROVIDERS: Dermatology
DX: K50.90 Crohn's disease, unspecified, without complications (principal); Z88.8 Allergy status to other drugs, medicaments and biological substances; E11.622 Type 2 diabetes mellitus with other skin ulcer; L98.412 Non-pressure chronic ulcer of buttock with fat layer exposed; Z85.850 Personal history of malignant neoplasm of thyroid
CPT/HCPCS: 36415; 80053; 82043; 82570; 83036; 84443; 85025; 86800; 96413; 96415; J7040; Q5103

== ENCOUNTER 2025-03-06 02:38 | Day surgery (SDC) | payer OTHER ==
[~2025-03-06] VITALS: Wt 112.0 kg
[~2025-03-06 02:38] MED LIST changes: -INFLIXIMAB DYYB IV SCH; -NS IV SCH
[2025-03-06] MEDS ORDERED: NS IV SCH (06:00)
[2025-03-06] MEDS ORDERED: INFLIXIMAB DYYB IV SCH (06:00)
[2025-03-06 08:10] VITALS: BP 138/99
[2025-03-06 08:38] LABS: BASOPHILS ABSOLUTE AUTO 0.07 K/mm3 (0.00-0.23); BASOPHILS PERCENT AUTO 1 % (0-2); EOSINOPHILS ABSOLUTE AUTO 0.22 K/mm3 (0.00-0.68); EOSINOPHILS PERCENT AUTO 2 % (0-6); Hematocrit 40.9 % (33.0-51.0); IMMATURE GRAN ABSOLUTE AUTO 0.08 K/mm3 (0.00-0.10); IMMATURE GRAN PERCENT AUTO 1 % (0-1); LYMPHOCYTES ABSOLUTE AUTO 2.54 K/mm3 (0.84-5.20); LYMPHOCYTES PERCENT AUTO 28 % (21-46); MONOCYTES ABSOLUTE AUTO 0.65 K/mm3 (0.16-1.47); MONOCYTES PERCENT AUTO 7 % (4-13); Mean Corpuscular HGB 25.3 pg (26.0-34.0); Mean Corpuscular HGB Conc 31.8 g/dL (31.5-36.5); Mean Corpuscular Volume 80 fL (80-100); Mean Platelet Volume 9.2 fL (9.1-12.4); NEUTROPHILS ABSOLUTE AUTO 5.67 K/mm3 (1.96-9.15); NEUTROPHILS PERCENT AUTO 61 % (41-73); Platelet Count 423 K/mm3 (150-400); RDW Coefficient Variation 14.4 % (11.7-14.2); RDW Standard Deviation 41.9 fL (35.1-46.3); Red Blood Cell Count 5.13 M/mm3 (3.80-5.20); White Blood Cell Count 9.23 K/mm3 (4.00-11.30)
[2025-03-06 09:03] LABS: Albumin, Blood 3.1 g/dL (3.4-5.0); Albumin/Globulin Ratio 0.6 (0.8-1.8); Bilirubin, Total 0.2 mg/dL (0.1-1.0); Bun/Creatinine Ratio 23.3 (12.0-20.0); Calcium, Blood 8.5 mg/dL (8.5-10.1); Creatinine, Blood 0.69 mg/dL (0.40-1.00); Globulin, Blood 5.1 g/dL (2.2-4.0); Potassium, Blood 4.2 mmol/L (3.5-5.5); Total Protein, Blood 8.2 g/dL (6.4-8.2)
== END 2025-03-06 10:48 | disposition home or self-care (01) ==
LOC: ATC 02:38
PROVIDERS: Dermatology
DX: E11.622 Type 2 diabetes mellitus with other skin ulcer (principal); L98.499 Non-pressure chronic ulcer of skin of other sites with unspecified severity; K50.90 Crohn's disease, unspecified, without complications; I10 Essential (primary) hypertension; Z79.4 Long term (current) use of insulin; Z79.899 Other long term (current) drug therapy; Z88.8 Allergy status to other drugs, medicaments and biological substances
CPT/HCPCS: 80053; 85025; 96413; 96415; J7040; Q5103

== ENCOUNTER 2025-04-17 00:42 | Day surgery (SDC) | payer OTHER ==
[2025-04-17] MEDS ORDERED: INFLIXIMAB DYYB IV SCH (06:00)
[2025-04-17] MEDS ORDERED: NS IV SCH (06:00)
[2025-04-17 08:12] VITALS: BP 134/85
[2025-04-17 08:48] LABS: BASOPHILS ABSOLUTE AUTO 0.08 K/mm3 (0.00-0.23); BASOPHILS PERCENT AUTO 1 % (0-2); EOSINOPHILS ABSOLUTE AUTO 0.14 K/mm3 (0.00-0.68); EOSINOPHILS PERCENT AUTO 2 % (0-6); Hematocrit 39.5 % (33.0-51.0); Hemoglobin 12.7 g/dL (11.5-16.0); IMMATURE GRAN PERCENT AUTO 1 % (0-1); LYMPHOCYTES ABSOLUTE AUTO 2.67 K/mm3 (0.84-5.20); LYMPHOCYTES PERCENT AUTO 30 % (21-46); MONOCYTES ABSOLUTE AUTO 1.01 K/mm3 (0.16-1.47); MONOCYTES PERCENT AUTO 11 % (4-13); Mean Corpuscular HGB 25.8 pg (26.0-34.0); Mean Corpuscular HGB Conc 32.2 g/dL (31.5-36.5); Mean Corpuscular Volume 80 fL (80-100); Mean Platelet Volume 9.1 fL (9.1-12.4); NEUTROPHILS ABSOLUTE AUTO 4.89 K/mm3 (1.96-9.15); NEUTROPHILS PERCENT AUTO 55 % (41-73); Platelet Count 482 K/mm3 (150-400); RDW Coefficient Variation 15.4 % (11.7-14.2); RDW Standard Deviation 44.4 fL (35.1-46.3); Red Blood Cell Count 4.92 M/mm3 (3.80-5.20); White Blood Cell Count 8.89 K/mm3 (4.00-11.30)
[2025-04-17 09:10] LABS: Albumin/Globulin Ratio 0.5 (0.8-1.8); Bilirubin, Total 0.4 mg/dL (0.1-1.0); Bun/Creatinine Ratio 21.9 (12.0-20.0); Calcium, Blood 8.6 mg/dL (8.5-10.1); Creatinine, Blood 0.78 mg/dL (0.40-1.00); Globulin, Blood 5.5 g/dL (2.2-4.0); Potassium, Blood 3.7 mmol/L (3.5-5.5); Total Protein, Blood 8.5 g/dL (6.4-8.2)
== END 2025-04-17 11:01 | disposition home or self-care (01) ==
LOC: ATC 00:42
PROVIDERS: Dermatology
DX: L98.499 Non-pressure chronic ulcer of skin of other sites with unspecified severity (principal); B37.2 Candidiasis of skin and nail; E11.9 Type 2 diabetes mellitus without complications; I10 Essential (primary) hypertension; E07.9 Disorder of thyroid, unspecified; Z85.528 Personal history of other malignant neoplasm of kidney; Z79.4 Long term (current) use of insulin; Z79.84 Long term (current) use of oral hypoglycemic drugs; Z79.890 Hormone replacement therapy; Z79.899 Other long term (current) drug therapy; Z88.8 Allergy status to other drugs, medicaments and biological substances
CPT/HCPCS: 80053; 85025; 96413; 96415; J7040; Q5103

== ENCOUNTER 2025-05-29 03:06 | Day surgery (SDC) | payer OTHER ==
[2025-05-29 09:10] VITALS: BP 117/83
[2025-05-29] MEDS ORDERED: DOXYCYCLINE HY100 M1 PO (09:15)
[2025-05-29] MEDS ORDERED: OXYC5 PO (09:15)
[2025-05-29 09:18] LABS: BASOPHILS ABSOLUTE AUTO 0.05 K/mm3 (0.00-0.23); BASOPHILS PERCENT AUTO 1 % (0-2); EOSINOPHILS ABSOLUTE AUTO 0.23 K/mm3 (0.00-0.68); EOSINOPHILS PERCENT AUTO 3 % (0-6); Hematocrit 36.5 % (33.0-51.0); Hemoglobin 12.0 g/dL (11.5-16.0); IMMATURE GRAN ABSOLUTE AUTO 0.09 K/mm3 (0.00-0.10); IMMATURE GRAN PERCENT AUTO 1 % (0-1); LYMPHOCYTES ABSOLUTE AUTO 2.62 K/mm3 (0.84-5.20); LYMPHOCYTES PERCENT AUTO 28 % (21-46); MONOCYTES ABSOLUTE AUTO 0.81 K/mm3 (0.16-1.47); MONOCYTES PERCENT AUTO 9 % (4-13); Mean Corpuscular HGB Conc 32.9 g/dL (31.5-36.5); Mean Corpuscular Volume 80 fL (80-100); NEUTROPHILS ABSOLUTE AUTO 5.52 K/mm3 (1.96-9.15); NEUTROPHILS PERCENT AUTO 59 % (41-73); NRBC ABSOLUTE 0.00 K/mm3 (0.00-0.02); NRBC Auto 0.0 /100 WBC (0.0-0.2); Platelet Count 407 K/mm3 (150-400); RDW Coefficient Variation 14.3 % (11.7-14.2); RDW Standard Deviation 41.8 fL (35.1-46.3)
[2025-05-29] MEDS ORDERED: INFLIXIMAB DYYB IV SCH (09:30)
[2025-05-29] MEDS ORDERED: NS IV SCH (09:30)
[2025-05-29 09:36] LABS: Alanine Aminotransfer (ALT/SGP 19.0 U/L (12-78); Albumin, Blood 2.9 g/dL (3.4-5.0); Albumin/Globulin Ratio 0.5 (0.8-1.8); Anion Gap 9.0 mmol/L (3-11); Aspartate Aminotrans (AST/SGOT 9.0 U/L (12-37); Bilirubin, Total 0.2 mg/dL (0.1-1.0); Blood Urea Nitrogen 19.0 mg/dL (8-24); CO2, Blood 24.0 mmol/L (21-32); Calcium, Blood 8.6 mg/dL (8.5-10.1); Chloride, Blood 101.0 mmol/L (98-108); Creatinine, Blood 0.81 mg/dL (0.40-1.00); Globulin, Blood 5.7 g/dL (2.2-4.0); Glucose, Blood 410.0 mg/dL (70-99); Potassium, Blood 4.1 mmol/L (3.5-5.5); Sodium, Blood 130.0 mmol/L (136-145); Total Protein, Blood 8.6 g/dL (6.4-8.2)
--- NOTE | 2025-05-29 11:23 | NUR ---
1 HOUR INFUSION. PUMP WAS PROGRAMMED INCORRECTLY AND MED INFUSED OVER 1 HOUR INSTEAD OF 2 HOURS. PT HAS NO C/O. PT REFUSED OFFER TO REMAIN IN CLINIC FOR OBSERVATION.
== END 2025-05-29 10:58 | disposition home or self-care (01) ==
LOC: ATC 03:06
PROVIDERS: Dermatology
DX: L98.499 Non-pressure chronic ulcer of skin of other sites with unspecified severity (principal); E11.9 Type 2 diabetes mellitus without complications; Z88.8 Allergy status to other drugs, medicaments and biological substances
CPT/HCPCS: 80053; 85025; 96413; J7050; Q5103

== ENCOUNTER 2025-08-07 02:22 | Day surgery (SDC) | payer OTHER ==
[~2025-08-07 02:22] MED LIST changes: +DOXYCYCLINE HY100 M1 PO; +OXYC5 PO
[2025-08-07] MEDS ORDERED: NS IV SCH (06:00)
[2025-08-07] MEDS ORDERED: INFLIXIMAB DYYB IV SCH (06:00)
[2025-08-07 09:28] VITALS: BP 116/92
[2025-08-07 09:51] LABS: BASOPHILS ABSOLUTE AUTO 0.04 K/mm3 (0.00-0.23); BASOPHILS PERCENT AUTO 1 % (0-2); EOSINOPHILS ABSOLUTE AUTO 0.08 K/mm3 (0.00-0.68); EOSINOPHILS PERCENT AUTO 1 % (0-6); Hematocrit 39.2 % (33.0-51.0); Hemoglobin 12.6 g/dL (11.5-16.0); IMMATURE GRAN ABSOLUTE AUTO 0.06 K/mm3 (0.00-0.10); IMMATURE GRAN PERCENT AUTO 1 % (0-1); LYMPHOCYTES ABSOLUTE AUTO 1.62 K/mm3 (0.84-5.20); LYMPHOCYTES PERCENT AUTO 28 % (21-46); MONOCYTES ABSOLUTE AUTO 0.69 K/mm3 (0.16-1.47); MONOCYTES PERCENT AUTO 12 % (4-13); Mean Corpuscular HGB Conc 32.1 g/dL (31.5-36.5); Mean Corpuscular Volume 82 fL (80-100); NEUTROPHILS ABSOLUTE AUTO 3.26 K/mm3 (1.96-9.15); NEUTROPHILS PERCENT AUTO 57 % (41-73); NRBC ABSOLUTE 0.00 K/mm3 (0.00-0.02); NRBC Auto 0.0 /100 WBC (0.0-0.2); Platelet Count 366 K/mm3 (150-400); RDW Coefficient Variation 14.9 % (11.7-14.2); RDW Standard Deviation 44.6 fL (35.1-46.3)
[2025-08-07 10:06] LABS: Alanine Aminotransfer (ALT/SGP 19.0 U/L (12-78); Albumin, Blood 3.0 g/dL (3.4-5.0); Albumin/Globulin Ratio 0.5 (0.8-1.8); Anion Gap 9.0 mmol/L (3-11); Aspartate Aminotrans (AST/SGOT 13.0 U/L (12-37); Bilirubin, Total 0.2 mg/dL (0.1-1.0); Blood Urea Nitrogen 13.0 mg/dL (8-24); CO2, Blood 28.0 mmol/L (21-32); Calcium, Blood 9.0 mg/dL (8.5-10.1); Chloride, Blood 100.0 mmol/L (98-108); Creatinine, Blood 0.83 mg/dL (0.40-1.00); Globulin, Blood 6.0 g/dL (2.2-4.0); Glucose, Blood 265.0 mg/dL (70-99); Potassium, Blood 4.0 mmol/L (3.5-5.5); Sodium, Blood 133.0 mmol/L (136-145); Total Protein, Blood 9.0 g/dL (6.4-8.2)
[2025-08-07] MEDS ORDERED: OZEMPIC0.25 MG/02 SC (12:13)
== END 2025-08-07 12:17 | disposition home or self-care (01) ==
LOC: ATC 02:22
PROVIDERS: Dermatology
DX: E11.622 Type 2 diabetes mellitus with other skin ulcer (principal); L98.499 Non-pressure chronic ulcer of skin of other sites with unspecified severity; Z88.8 Allergy status to other drugs, medicaments and biological substances; Z79.899 Other long term (current) drug therapy
CPT/HCPCS: 80053; 85025; 96413; 96415; J7050; Q5103

== ENCOUNTER 2025-09-11 01:33 | Day surgery (SDC) | payer OTHER ==
[~2025-09-11 01:33] MED LIST changes: +OZEMPIC0.25 MG/02 SC
[2025-09-11] MEDS ORDERED: INFLIXIMAB DYYB IV SCH (06:00)
[2025-09-11] MEDS ORDERED: NS IV SCH (06:00)
[2025-09-11 08:52] VITALS: BP 143/98
[2025-09-11 09:34] LABS: BASOPHILS ABSOLUTE AUTO 0.06 K/mm3 (0.00-0.23); BASOPHILS PERCENT AUTO 1 % (0-2); EOSINOPHILS ABSOLUTE AUTO 0.16 K/mm3 (0.00-0.68); EOSINOPHILS PERCENT AUTO 2 % (0-6); Hematocrit 37.7 % (33.0-51.0); Hemoglobin 12.1 g/dL (11.5-16.0); IMMATURE GRAN ABSOLUTE AUTO 0.10 K/mm3 (0.00-0.10); IMMATURE GRAN PERCENT AUTO 1 % (0-1); LYMPHOCYTES ABSOLUTE AUTO 2.02 K/mm3 (0.84-5.20); LYMPHOCYTES PERCENT AUTO 19 % (21-46); MONOCYTES ABSOLUTE AUTO 0.79 K/mm3 (0.16-1.47); MONOCYTES PERCENT AUTO 8 % (4-13); Mean Corpuscular HGB Conc 32.1 g/dL (31.5-36.5); Mean Corpuscular Volume 82 fL (80-100); NEUTROPHILS ABSOLUTE AUTO 7.46 K/mm3 (1.96-9.15); NEUTROPHILS PERCENT AUTO 70 % (41-73); NRBC ABSOLUTE 0.00 K/mm3 (0.00-0.02); NRBC Auto 0.0 /100 WBC (0.0-0.2); Platelet Count 409 K/mm3 (150-400); RDW Coefficient Variation 14.7 % (11.7-14.2); RDW Standard Deviation 44.0 fL (35.1-46.3)
[2025-09-11 10:10] LABS: Alanine Aminotransfer (ALT/SGP 18.0 U/L (12-78); Albumin, Blood 3.0 g/dL (3.4-5.0); Albumin/Globulin Ratio 0.5 (0.8-1.8); Anion Gap 9.0 mmol/L (3-11); Aspartate Aminotrans (AST/SGOT 13.0 U/L (12-37); Bilirubin, Total 0.2 mg/dL (0.1-1.0); Blood Urea Nitrogen 22.0 mg/dL (8-24); CO2, Blood 26.0 mmol/L (21-32); Calcium, Blood 9.3 mg/dL (8.5-10.1); Chloride, Blood 100.0 mmol/L (98-108); Creatinine, Blood 0.9 mg/dL (0.40-1.00); Globulin, Blood 5.9 g/dL (2.2-4.0); Glucose, Blood 291.0 mg/dL (70-99); Potassium, Blood 4.3 mmol/L (3.5-5.5); Sodium, Blood 131.0 mmol/L (136-145); Total Protein, Blood 8.9 g/dL (6.4-8.2)
== END 2025-09-11 11:29 | disposition home or self-care (01) ==
LOC: ATC 01:33
PROVIDERS: Dermatology
DX: E11.622 Type 2 diabetes mellitus with other skin ulcer (principal); L98.419 Non-pressure chronic ulcer of buttock with unspecified severity; Z88.8 Allergy status to other drugs, medicaments and biological substances
CPT/HCPCS: 80053; 85025; 96413; 96415; J7050; Q5103

== ENCOUNTER 2025-10-17 06:28 | Day surgery (SDC) | payer OTHER ==
[~2025-10-17 06:28] MED LIST changes: +INFLIXIMAB DYYB IV SCH; +NS IV SCH
[2025-10-17 08:55] VITALS: BP 130/92
[2025-10-17 09:39] LABS: BASOPHILS ABSOLUTE AUTO 0.05 K/mm3 (0.00-0.23); BASOPHILS PERCENT AUTO 0 % (0-2); EOSINOPHILS ABSOLUTE AUTO 0.10 K/mm3 (0.00-0.68); EOSINOPHILS PERCENT AUTO 1 % (0-6); Hematocrit 40.1 % (33.0-51.0); Hemoglobin 12.9 g/dL (11.5-16.0); IMMATURE GRAN ABSOLUTE AUTO 0.08 K/mm3 (0.00-0.10); IMMATURE GRAN PERCENT AUTO 1 % (0-1); LYMPHOCYTES ABSOLUTE AUTO 2.44 K/mm3 (0.84-5.20); LYMPHOCYTES PERCENT AUTO 21 % (21-46); MONOCYTES ABSOLUTE AUTO 0.94 K/mm3 (0.16-1.47); MONOCYTES PERCENT AUTO 8 % (4-13); Mean Corpuscular HGB Conc 32.2 g/dL (31.5-36.5); Mean Corpuscular Volume 86 fL (80-100); NEUTROPHILS ABSOLUTE AUTO 8.06 K/mm3 (1.96-9.15); NEUTROPHILS PERCENT AUTO 69 % (41-73); NRBC ABSOLUTE 0.00 K/mm3 (0.00-0.02); NRBC Auto 0.0 /100 WBC (0.0-0.2); Platelet Count 424 K/mm3 (150-400); RDW Coefficient Variation 15.3 % (11.7-14.2); RDW Standard Deviation 48.4 fL (35.1-46.3)
[2025-10-17 11:10] LABS: Alanine Aminotransfer (ALT/SGP 22.0 U/L (12-78); Albumin, Blood 3.2 g/dL (3.4-5.0); Albumin/Globulin Ratio 0.6 (0.8-1.8); Anion Gap 11.0 mmol/L (3-11); Aspartate Aminotrans (AST/SGOT 15.0 U/L (12-37); Bilirubin, Total 0.5 mg/dL (0.1-1.0); Blood Urea Nitrogen 20.0 mg/dL (8-24); CO2, Blood 24.0 mmol/L (21-32); Calcium, Blood 9.4 mg/dL (8.5-10.1); Chloride, Blood 100.0 mmol/L (98-108); Creatinine, Blood 1.08 mg/dL (0.40-1.00); Globulin, Blood 5.7 g/dL (2.2-4.0); Glucose, Blood 225.0 mg/dL (70-99); Potassium, Blood 4.3 mmol/L (3.5-5.5); Sodium, Blood 131.0 mmol/L (136-145); Total Protein, Blood 8.9 g/dL (6.4-8.2)
== END 2025-10-17 11:35 | disposition home or self-care (01) ==
LOC: ATC 06:28
PROVIDERS: Dermatology
DX: E11.622 Type 2 diabetes mellitus with other skin ulcer (principal); L98.419 Non-pressure chronic ulcer of buttock with unspecified severity; Z88.8 Allergy status to other drugs, medicaments and biological substances
CPT/HCPCS: 80053; 85025; 96413; 96415; J7050; Q5103

== ENCOUNTER → 2025-10-30 | Outpatient (CLI) | payer OTHER ==
[~2025-10-30] MED LIST changes: -INFLIXIMAB DYYB IV SCH; -NS IV SCH
== END | disposition home or self-care (01) ==
LOC: LAB 16:24 → LAB SHORT 16:24
DX: L08.0 Pyoderma (principal)
CPT/HCPCS: 87070; 87147; 87205